=== PATIENT | female | born 1940 | race African-American/Black ===

== ENCOUNTER 2018-04-03 17:40 | Emergency (ER) | payer MEDICARE, OTHER ==
[~2018-04-03] VITALS: Ht 162.6 cm; Wt 72.6 kg
[~2018-04-03 17:40] MED LIST: METO-269 PO
[2018-04-03 19:00] LABS: BILIRUBIN,URINE NEGATIVE (NEG); CLARITY,URINE CLEAR; COLOR,URINE YELLOW; NITRITE,URINE NEGATIVE (NEG); PH,URINE 6.5; PROTEIN,URINE NEGATIVE (NEG-TRACE)
[2018-04-03 19:11] LABS: BACTERIA,URINE MODERATE /HPF (0-FEW); SQUAMOUS EPITHELIAL CELL,UR MOD /LPF; WBC,URINE 20-40 /HPF (0-4); YEAST,URINE PRESENT /HPF
[2018-04-03] MEDS ORDERED: FLUCONAZOLE 100 MG TABLET. PO ONE (19:45)
[2018-04-03] MEDS ORDERED: IPRATRPIUM/ALBUTEROL 0.5/2.5MG 3 ML NEBU. NEB ONE (19:45)
--- NOTE | 2018-04-03 19:51 | PHYS DOC ---
Past Medical History Past Medical History: Constipation, Hypertension, Seizure Past Surgical History: Appendectomy, Hysterectomy, Tonsillectomy Smoking: Cigarettes Alcohol Use: Occasionally Drug Use: Marijuana Adult General Chief Complaint Chief Complaint: ABDOMINAL PAIN HPI HPI Patient is a 77 year old female with past medical history of chronic constipation and hypertension who presents with 1 week of abdominal pain. Patient notes that she came to the emergency department today because the pain increased and is now severe. Patient notes that her pain is constant in nature and is unable to describe pain more specifically but notes that it is diffuse. She notes she has had Nausea, constipation, and decreased appetite. Patient denies vomiting or fevers/chills. She notes that she had a small amount of liquidy stool that she passed today, but previously her last bowel movement was one week ago. Patient notes that she has had a cough for about the last week with productive clear sputum, and shortness of breath. Review of Systems Review of Systems Constitutional: Denies fever or chills [] Eyes: Denies change in visual acuity, redness, or eye pain [] HENT: Denies nasal congestion or sore throat [] Respiratory: Notes cough and shortness of breath [] Cardiovascular: No additional information not addressed in HPI [] GI: Notes abdominal pain, nausea, Denies vomiting, bloody stools or diarrhea [] : Denies dysuria or hematuria [] Musculoskeletal: Denies back pain or joint pain [] Integument: Denies rash or skin lesions [] Neurologic: Denies headache, focal weakness or sensory changes [] Endocrine: Denies polyuria or polydipsia [] Complete other systems were reviewed and found to be within normal limits, except as documented in this note. Family History Family History Noncontributory Current Medications Current Medications Current Medications Medications (Trade) Dose Ordered Sig/Jeane Start Time Stop Time Status Last Admin Dose Admin Albuterol/ Ipratropium (Duoneb) 3 ml 1X ONCE 04/03/18 19:45 04/03/18 19:46 DC 04/03/18 20:06 3 ML Ceftriaxone Sodium 50 ml @ 100 mls/hr 1X ONCE 04/03/18 20:00 04/03/18 20:46 DC Famotidine (Pepcid Vial) 20 mg 1X ONCE 04/03/18 20:15 04/03/18 20:16 DC 9/14/18 20:35 20 MG Fluconazole (Diflucan) 200 mg 1X ONCE 04/03/18 19:45 04/03/18 19:46 DC 04/03/18 20:35 200 MG Ketorolac Tromethamine (Toradol 15mg Vial) 15 mg 1X ONCE 04/03/18 20:15 04/03/18 20:16 DC 04/03/18 20:34 15 MG Sodium Chloride 1,000 ml @ 1,000 mls/hr 1X ONCE 04/03/18 20:15 04/03/18 21:14 DC 04/03/18 20:34 1,000 MLS/HR Allergies Allergies Allergies Coded Allergies Type Severity Reaction Last Updated Verified lisinopril Allergy Severe throat closing 04/03/18 Yes Penicillins Allergy Intermediate Rash 04/03/18 Yes Physical Exam Physical Exam Constitutional: Well developed, well nourished, no acute distress, non-toxic appearance. [] HENT: Normocephalic, atraumatic, bilateral external ears normal, oropharynx moist, no oral exudates, nose normal. [] Eyes: PERRL, EOMI, conjunctiva normal, no discharge. [] Neck: Normal range of motion, no tenderness, supple, no stridor. [] Cardiovascular:Heart rate regular rhythm, no murmur [] Lungs & Thorax: Bilateral expiratory wheezes, and decreased air movement[] Abdomen: Bowel sounds normal, soft, nondistended, no guarding, diffuse tenderness. [] Skin: Warm, dry, no erythema, no rash. [] Back: No tenderness, no CVA tenderness. [] Extremities: Left knee tenderness, no cyanosis, no clubbing, ROM intact, no edema. [] Neurologic: Alert and oriented X 3, normal motor function, normal sensory function, no focal deficits noted. Normal muscle strength bilateral upper and lower extremities. Cranial nerves II through XII intact bilaterally. [] Psychologic: Affect normal, judgement normal, mood normal. [] Current Patient Data Vital Signs Vital Signs Date Time Temp Pulse Resp B/P (MAP) Pulse Ox O2 Delivery O2 Flow Rate FiO2 04/03/18 20:06 98 Room Air 04/03/18 18:30 98.3 87 22 157/78 (104) 98.3 Lab Values Laboratory Tests Test 04/03/18 18:30 04/03/18 19:45 Urine Collection Type Unknown Urine Color Yellow Urine Clarity Clear Urine pH 6.5 Urine Specific [place] 1.010 Urine Protein Negative mg/dL (NEG-TRACE) Urine Glucose (UA) Negative mg/dL (NEG) Urine Ketones (Stick) Trace mg/dL (NEG) Urine Blood Small (NEG) Urine Nitrite Negative (NEG) Urine Bilirubin Negative (NEG) Urine Urobilinogen Dipstick 1.0 mg/dL (0.2 mg/dL) Urine Leukocyte Esterase Large (NEG) Urine RBC 3-5 /HPF (0-2) Urine WBC 20-40 /HPF (0-4) Urine Squamous Epithelial Cells Mod /LPF Urine Bacteria Moderate /HPF (0-FEW) Urine Mucus Slight /LPF Urine Yeast Present /HPF White Blood Count 5.5 x10^3/uL (4.0-11.0) Red Blood Count 4.50 x10^6/uL (3.50-5.40) Hemoglobin 13.4 g/dL (12.0-15.5) Hematocrit 39.5 % (36.0-47.0) Mean Corpuscular Volume 88 fL (79-100) Mean Corpuscular Hemoglobin 30 pg (25-35) Mean Corpuscular Hemoglobin Concent 34 g/dL (31-37) Red Cell Distribution Width 13.6 % (11.5-14.5) Platelet Count 223 x10^3/uL (140-400) Neutrophils (%) (Auto) 73 % (31-73) Lymphocytes (%) (Auto) 15 % (24-48) L Monocytes (%) (Auto) 7 % (0-9) Eosinophils (%) (Auto) 4 % (0-3) H Basophils (%) (Auto) 1 % (0-3) Neutrophils # (Auto) 4.0 x10^3uL (1.8-7.7) Lymphocytes # (Auto) 0.8 x10^3/uL (1.0-4.8) L Monocytes # (Auto) 0.4 x10^3/uL (0.0-1.1) Eosinophils # (Auto) 0.2 x10^3/uL (0.0-0.7) Basophils # (Auto) 0.0 x10^3/uL (0.0-0.2) Prothrombin Time 13.2 SEC (11.7-14.0) Prothrombin Time INR 1.1 (0.8-1.1) PTT 37 SEC (24-38) Sodium Level 140 mmol/L (136-145) Potassium Level 4.1 mmol/L (3.5-5.1) Chloride Level 102 mmol/L (98-107) Carbon Dioxide Level 29 mmol/L (21-32) Anion Gap 9 (6-14) Blood Urea Nitrogen 5 mg/dL (7-20) L Creatinine 0.7 mg/dL (0.6-1.0) Estimated GFR (Cockcroft-Gault) 97.7 BUN/Creatinine Ratio 7 (6-20) Glucose Level 91 mg/dL (70-99) Calcium Level 9.6 mg/dL (8.5-10.1) Magnesium Level 2.2 mg/dL (1.8-2.4) Total Bilirubin 0.4 mg/dL (0.2-1.0) Aspartate Amino Transferase (AST) 16 U/L (15-37) Alanine Aminotransferase (ALT) 17 U/L (14-59) Alkaline Phosphatase 91 U/L (46-116) Troponin I Quantitative < 0.017 ng/mL (0.000-0.055) Total Protein 7.3 g/dL (6.4-8.2) Albumin 3.4 g/dL (3.4-5.0) Albumin/Globulin Ratio 0.9 (1.0-1.7) L Lipase 104 U/L (73-393) Laboratory Tests 04/03/18 19:45 Laboratory Tests 04/03/18 19:45 EKG EKG Sinus rhythm, rate 87, QRS 118, QTC 478. No acute ischemic changes noted.[] Radiology/Procedures Radiology/Procedures PROCEDURE: CT CHEST ABDOMEN PELVIS WO PQRS Compliance statement: One or more of the following individualized dose reduction techniques were utilized for this examination: 1. Automated exposure control. 2. Adjustment of the mA and/or kV according to patient size. 3. Use of iterative reconstruction technique. Indication:SEVERE RT SIDED ABD PAIN, WHEEZING, NO PRIORS TECHNIQUE: CT chest, abdomen and pelviswithout IV contrast with multiplanar reformats. COMPARISON: None FINDINGS: Limited exam due to lack of IV contrast. Enlarged thyroid with dystrophic calcifications most likely goiter. Heart is normal in size. No pericardial or pleural effusion. Coronary artery calcifications. Diffusely patulous esophagus is seen. No enlarged axillary or mediastinal lymph nodes. Evaluation of hilar lymphadenopathy is limited due to lack of IV contrast. Central airways are patent. Mild paraseptal emphysema. Lungs are clear. Noncontrast appearance of the liver, spleen, gallbladder, pancreas, adrenals and kidneys within normal limits. Moderate diffuse atherosclerotic disease is seen of the abdominal aorta and bilateral iliac arteries. No free pelvic fluid or ascites. No enlarged retroperitoneal or pelvic adenopathy. No bowel obstruction. Sigmoid diverticulosis. No pneumoperitoneum. Urinary bladder demonstrates no radiopaque stones. Status post hysterectomy. No suspicious bony lesion. IMPRESSION: Limited exam due to lack of contrast. 1. No pneumonia. 2. No bowel obstruction. 3. No nephrolithiasis or hydronephrosis. Electronically signed by: Shon Arteaga DO (04/03/2018 9:39 PM) [facility] Course & Med Decision Making Course & Med Decision Making Pertinent Labs and Imaging studies reviewed. (See chart for details) [] Dragon Disclaimer Dragon Disclaimer This electronic medical record was generated, in whole or in part, using a voice recognition dictation system. Departure Departure Impression: Primary Impression: Abdominal pain Additional Impressions: UTI (urinary tract infection) Yeast cystitis Disposition: 01 HOME, SELF-CARE Condition: STABLE Referrals: KANDICE FALCON DO (PCP) Patient Instructions: Abdominal Pain (Nonspecific), Urinary Tract Infection, Stll-od-Oqpi Scripts Fluconazole (DIFLUCAN) 150 Mg Tablet 1 TAB PO ONCE, #1 TAB 0 Refills Take after completion of antibiotics (Keflex) Prov: RALPH LOCK DO 04/03/18 Cephalexin (KEFLEX) 500 Mg Capsule 500 MG PO TID for 7 Days, #21 CAP Prov: RALPH LOCK DO 04/03/18 Famotidine (PEPCID) 20 Mg Tablet 20 MG PO BID, #30 TAB Prov: RALPH LOCK DO 04/03/18 Hyoscyamine Sulfate (LEVSIN-SL) 0.125 Mg Tab.subl 1-2 TAB SL PRN Q4HRS PRN for PAIN, #20 TAB 0 Refills Prov: RALPH LOCK DO 04/03/18 Problem Qualifiers Primary Impression: Abdominal pain Abdominal location: unspecified location Qualified Codes: R10.9 - Unspecified abdominal pain Additional Impressions: UTI (urinary tract infection) Urinary tract infection type: acute cystitis Hematuria presence: without hematuria Qualified Codes: N30.00 - Acute cystitis without hematuria RALPH LOCK DO Apr 03, 2018 19:51
[2018-04-03 20:00] LABS: BASO % 1 % (0-3); EOS # 0.2 x10^3/uL (0.0-0.7); EOS % 4 % (0-3); HEMATOCRIT 39.5 % (36.0-47.0); HEMOGLOBIN 13.4 g/dL (12.0-15.5); LYMPH # 0.8 x10^3/uL (1.0-4.8); LYMPH % 15 % (24-48); MEAN CORPUSCULAR HEMOGLOBIN 30 pg (25-35); MEAN CORPUSCULAR HGB CONC 34 g/dL (31-37); MEAN CORPUSCULAR VOLUME 88 fL (79-100); MONO # 0.4 x10^3/uL (0.0-1.1); MONO % 7 % (0-9); NEUT % 73 % (31-73); PLATELET COUNT 223 x10^3/uL (140-400); RED CELL DISTRIBUTION WIDTH 13.6 % (11.5-14.5); WHITE BLOOD COUNT 5.5 x10^3/uL (4.0-11.0)
--- NOTE | 2018-04-03 20:08 | EKG ---
[facility] [address] [place] [address] Test Date: 2018-04-03 Test Time: 19:26:27 Pat Name: ADILIA TORRES Department: Room: Gender: F [employer] Machine Operator: : [id number] Requested By: RALPH LOCK Order Number: [id number] Reading MD: Yasmani Vaca Measurements Intervals [place] Rate: 87 P: 90 IA: 136 QRS: 88 QRSD: 118 T: 70 QT: 392 QTc: 478 Interpretive Statements SINUS RHYTHM VENTRICULAR PREMATURE COMPLEX(ES) LEFT ATRIAL ABNORMALITY INCOMPLETE RIGHT BUNDLE BRANCH BLOCK PROLONGED QT ABNORMAL ECG Electronically Signed On 04-06-2018 11:10:11 CDT by Yasmani Vaca
[2018-04-03 20:09] LABS: CALCIUM 9.6 mg/dL (8.5-10.1); CREATININE 0.7 mg/dL (0.6-1.0); GFR 97.7; POTASSIUM 4.1 mmol/L (3.5-5.1)
[2018-04-03 20:12] LABS: PROTHROMBIN TIME PATIENT 13.2 SEC (11.7-14.0)
[2018-04-03 20:15] LABS: ALBUMIN 3.4 g/dL (3.4-5.0); ALBUMIN/GLOBULIN RATIO 0.9 (1.0-1.7); MAGNESIUM 2.2 mg/dL (1.8-2.4); TOTAL BILIRUBIN 0.4 mg/dL (0.2-1.0); TOTAL PROTEIN 7.3 g/dL (6.4-8.2)
[2018-04-03] MEDS ORDERED: KETOROLAC 15 MG/ML VIAL. IV ONE (20:15)
[2018-04-03] MEDS ORDERED: FAMOTIDINE 20 MG/2 ML VIAL IVP ONE (20:15)
[2018-04-03] MEDS ORDERED: IV NORMAL SALINE 1000ML BAG 1,000 ML IV ONE (20:15)
--- NOTE | 2018-04-03 21:42 | RAD ---
PQRS Compliance statement: One or more of the following individualized dose reduction techniques were utilized for this examination: 1. Automated exposure control. 2. Adjustment of the mA and/or kV according to patient size. 3. Use of iterative reconstruction technique. Indication:SEVERE RT SIDED ABD PAIN, WHEEZING, NO PRIORS TECHNIQUE: CT chest, abdomen and pelviswithout IV contrast with multiplanar reformats. COMPARISON: None FINDINGS: Limited exam due to lack of IV contrast. Enlarged thyroid with dystrophic calcifications most likely goiter. Heart is normal in size. No pericardial or pleural effusion. Coronary artery calcifications. Diffusely patulous esophagus is seen. No enlarged axillary or mediastinal lymph nodes. Evaluation of hilar lymphadenopathy is limited due to lack of IV contrast. Central airways are patent. Mild paraseptal emphysema. Lungs are clear. Noncontrast appearance of the liver, spleen, gallbladder, pancreas, adrenals and kidneys within normal limits. Moderate diffuse atherosclerotic disease is seen of the abdominal aorta and bilateral iliac arteries. No free pelvic fluid or ascites. No enlarged retroperitoneal or pelvic adenopathy. No bowel obstruction. Sigmoid diverticulosis. No pneumoperitoneum. Urinary bladder demonstrates no radiopaque stones. Status post hysterectomy. No suspicious bony lesion. IMPRESSION: Limited exam due to lack of contrast. 1. No pneumonia. 2. No bowel obstruction. 3. No nephrolithiasis or hydronephrosis. Electronically signed by: Shon Arteaga DO (04/03/2018 9:39 PM) [facility]
[2018-04-03] MEDS ORDERED: FLUC150T PO (22:28)
[2018-04-03] MEDS ORDERED: HYOS0.1265 SL (22:28)
[2018-04-03] MEDS ORDERED: CEPH-264 PO (22:28)
[2018-04-03] MEDS ORDERED: FAMO-63 PO (22:28)
[2018-04-03 23:00] VITALS: BP 148/63
== END 2018-04-03 23:18 | disposition home or self-care (01) ==
LOC: ER 17:40
DX: N30.00 Acute cystitis without hematuria (principal); B37.41 Candidal cystitis and urethritis; R06.02 Shortness of breath; I10 Essential (primary) hypertension; F17.210 Nicotine dependence, cigarettes, uncomplicated; Z90.89 Acquired absence of other organs; Z90.710 Acquired absence of both cervix and uterus; Z88.0 Allergy status to penicillin; Z88.8 Allergy status to other drugs, medicaments and biological substances
CPT/HCPCS: 36415; 71250; 74176; 80053; 81001; 83690; 83735; 84484; 85025; 85610; 85730; 87086; 93005; 94640; 96365; 96375; 99285; J0690; J1885; J7030; J7620; S0028

== ENCOUNTER 2018-05-07 13:57 | Inpatient (IN) | payer MEDICARE, OTHER ==
[~2018-05-07] VITALS: Ht 165.1 cm; Wt 69.9 kg
[~2018-05-07 13:57] MED LIST changes: +CEPH-264 PO; +FAMO-63 PO; +FLUC150T PO; +HYOS0.1265 SL
[2018-05-07] MEDS ORDERED: ALBUTEROL SULFATE 2.5 MG/3 ML NEBU. NEB PRN (15:45)
[2018-05-07 16:00] VITALS: BP 135/66
[2018-05-07] MEDS ORDERED: levOFLOXacin PER PHARMACY. MC PRN (16:00)
--- NOTE | 2018-05-07 16:26 | PDOC2 ---
GI CONSULT Reason For Consult: Abd pain, diarrhea HPI: HPI: 77 y/o female from [facility]. Much of history from daughter Nhung. Had a check-up w/ her PCP this morning, was told she could stop her BP meds, start ASA, start Metamucil for constipation, and try hyoscyamine for abd pain. Went to [employer], got on an electric cart, then had an episode of staring, eye rolling, lip-drooping, and fist-clenching. Brought to ER by EMS, daughter says was hypertensive. CT head unrevealing, brain MRI pending here. Chronic abdominal pain that has been worse lately, maybe for about a week. Pain is fairly constant - she cannot tell me aggravating or alleviating factors. She says it is diffuse but worse on the right side. Difficult to characterize except "it feels like I have to poop." H/o constipation - has been on Amitiza BID for awhile and recently added Mag Citrate twice weekly. Began having watery stools 2 days ago. Decreased appetite w/ possible nausea, but no vomiting and has gained weight. Denies hematochezia or melena. No reflux/heartburn or dysphagia. At [facility]: normal WBC and Hgb, normal LFTs and lipase. CT unrevealing for acute issue, noted diverticulosis. No previous EGD. Recalls colonoscopy at some point, thinks normal. No GB, liver, or pancreas history. No NSAIDs. Recently took atbx for UTI - says no dysuria but urine has a strong odor. Has also had a cough recently. No fever/ chills/sweats. PMH: PMH: HTN, mild valvular heart disease, ?seizure, UTI, diverticulosis, appendectomy, hysterectomy, tonsillectomy FH: Family History: No pertinent hx (denies GI cancers) Social History: Smoke: <1 pack per day ALCOHOL: rare Drugs: Marijuana (daily "if I can get it") ROS: GEN: Denies fevers, chills, sweats HEENT: Denies blurred vision, sore throat CV: Denies chest pain RESP: +cough GI: Per HPI : +malodorous urine ENDO: +weight gain NEURO: Denies confusion, dizziness MSK: Denies weakness, joint pain/swelling SKIN: Denies jaundice, pruritus Vitals: Vitals: Please see EMR. Labs: Labs: Per HPI, please see EMR. Allergies: Coded Allergies: lisinopril (Verified Allergy, Severe, throat closing, 04/03/18) Penicillins (Verified Allergy, Intermediate, Rash, 04/03/18) Medications: Please see EMR. Imaging: Imaging: Brain MRI pending PE: GEN: NAD - on commode HEENT: Atraumatic, PERRL LUNGS: coarse, wet cough HEART: RRR ABD: NABS, S/ND - difficult to assess tenderness on commode - perhaps vaguely uncomfortable to right EXTREMITY: No edema SKIN: No rashes, no jaundice NEURO/PSYCH: A & O 3 - slow to answer, daughter helps A/P: A/P: AMS Chronic abd pain - worse, mostly right-sided (today) Watery stools - h/o constipation on Amitiza and Mag Citrate, recent atbx use Decreased appetite, ?nausea Cough CRC screen - reports normal colonoscopy at some point Diverticulosis +THC -- Reviewed w/ Dr. Kirk - check abd US r/o gallbladder issue. Will also check fecal WBCs w/ recent atbx use. Has IV PPI ordered. VIVIAN MOREL May 07, 2018 16:26
[2018-05-07] MEDS ORDERED: GADOBUTROL 7.5 MMOL/7.5 ML VIAL IV ONE (16:30)
[2018-05-07] MEDS ORDERED: PANTOPRAZOLE IV PUSH 40 MG VIAL. IVP SCH (16:30)
[2018-05-07] MEDS: IPRATRPIUM/ALBUTEROL 0.5/2.5MG 3 ML NEBU. NEB SCH ×2 (16:50→19:22)
--- NOTE | 2018-05-07 17:11 | RAD ---
MRI Brain with and without contrast History: Syncope, possible seizure, weakness Technique: Multiplanar, multi sequential pre and postcontrast MR imaging was performed of the brain. Contrast: 6 cc Gadavist Comparison: July 18, 2016 Findings: There is a small about 5 to 6 mm focus of restricted diffusion along the margin of the right lateral ventricle. Ventricular size is within normal limits. There is moderate supratentorial atrophy greater of the parietal lobes. There is mild T2 and FLAIR hyperintense abnormality of the supratentorial white matter bilaterally not significantly changed. There is a small focus of encephalomalacia and gliosis with cortical involvement of the right occipital lobe, new since the previous 2016 exam. There are again foci of encephalomalacia and gliosis of the anterior frontal lobes bilaterally with cortical involvement, left greater than right. There is again small old lacunar infarct of the right frontal horn. There is minimal T2 and FLAIR hyperintense signal of the luis angel unchanged. There is no significant midline shift, intraaxial mass effect, or focal abnormal extra-axial fluid collection. There is no hemosiderin deposition of the brain parenchyma. There is no nodular parenchymal or leptomeningeal enhancement. There is preservation of the major intracranial flow-voids at the skull base. The cerebellar tonsils are normal in location. There is no significant abnormality of the pineal gland or pituitary gland. There has been lens surgery bilaterally. Paranasal sinuses are overall aerated. The mastoid air cells are aerated. There is preserved marrow signal of the clivus. Impression: 1. There is a small recent acute or subacute infarct along the margin of the right lateral ventricle. 2. There is moderate supratentorial atrophy greater of the parietal lobes. Overall mild T2 and FLAIR hyperintense signal abnormality of the supratentorial parenchyma is similar compared with 2016 exam, nonspecific findings probably due to chronic microvascular ischemic disease in a patient this age, also small old lacunar infarct near the right frontal horn. There is small old infarct with cortical involvement of the right occipital lobe, new since 2016 exam. Small foci of encephalomalacia with cortical involvement and gliosis of the anterior frontal lobes bilaterally greater on the left were present previously. Critical result: Findings discussed with patient's nurse Sade at 05/07/2018 5:07 PM. Electronically signed by: Kris Jean MD (05/07/2018 5:08 PM) [id number]
[2018-05-07] MEDS: oxyCODONE/APAP 5/325 1 TAB TABLET PO PRN ×2 (17:24→20:39)
[2018-05-07] MEDS ORDERED: LUBI8CAP4 PO (18:43)
[2018-05-07] MEDS ORDERED: OLOP5DRO EACHEYE (18:44)
[2018-05-07] MEDS ORDERED: FURO-69 PO (18:44)
[2018-05-07] MEDS ORDERED: POTA10TA12 PO (18:44)
[2018-05-07] MEDS ORDERED: PANT20TA2 PO (18:45)
[2018-05-07] MEDS ORDERED: AMLO5TAB7 PO (18:45)
[2018-05-07 19:00] VITALS: BP 131/58
[2018-05-07] MEDS: amLODIPine BESYLATE 2.5 MG TABLET PO ONE (19:00)
[2018-05-07] MEDS: FUROSEMIDE 20 MG TABLET PO SCH ×2 (19:00→20:37)
[2018-05-07] MEDS: amLODIPine BESYLATE 2.5 MG TABLET PO SCH (19:00)
--- NOTE | 2018-05-07 20:19 | PDOC2 ---
NEUROLOGY CONSULT Date of Admission Date of Admission DATE: 05/07/18 TIME: 19:59 Reason for Consult Reason for Consult: IMPRESSION: Seizures, believed provoked by cannabinoids. Small subacute infarct along the right ventricle. Metabolic encephalopathy. Confusion. UTI. HTN. Old small lacunar infarcts near right frontal horn and right occipital lobe. 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 Brain atrophy, cannabinoids induced and CVA. Cannabinoid use/abuse x 50 years. Smoking x 50 years. Drinking. Benzo positive. RECOMMENDATIONS/PLAN: ASA 325 mg daily,. Brain MRI performed. Carotid A US + Doppler. Echo + Bubble study. EEG. May consider Keppra 500 mg bid after EEG. Lab: see orders. Treat UTI. Treat medical diseases. Patient education for marijuana and smoking cessation. Discussed in all detail with her and her daughter at bedside on 05/07/18. HISTORY OF THE PRESENT ILLNESS: 77-y-old AA female patient with Hx of marijuana use/abuse and smoking for about 50 years. She had a seizure on 05/07/18 described by her daughter as LOC, eyes rolling back to her head, foam from her mouth, stiffness with shaking movements in her UE mostly for several minutes. Postictally, she was confused and unable to recognize her surroundings. She had 4 similar episodes in the past 1.5 years per her daughter. PMH: HTN, mild valvular heart disease, ?seizure, UTI, diverticulosis. PAST SURGERY HISTORY: Tonsillectomy Appendectomy, Hysterectomy ALLERGY: Reviewed. MEDICATIONS: Refer to [facility] FAMILY HISTORY: Non contributory. No seizures. SOCIAL HISTORY: Lives at home. he smokes < 1 pack of cigarettes a day for 50 years. She drinks alcohol occasionally. She uses marijuana on a daily basis for 50 years.. REVIEW OF SYSTEMS: Constitutional: No cachexia. Head: No recent traumatic brain or head injury. Skin: No edema, or rash. Ear: No infection. Eyes: No vision loss or color blindness. Nose: No bleeding or purulent discharges. Hearing: Mild hearing decrease. Neck: No injury. Breast: No history of cancer, masses,or discharges. Cardiac: HTN. Pulmonary: COPD? longstanding smoking. GI: Diverticulosis. Urinary/genital: UTI. Endocrinologic: No cousin face, craniofacial dysmorphism, polydactyly. Skeletomuscular: No muscular atrophy, deformity. Neurological: see HP. Psychiatric: Substance and drug use/abuse. Otherwise, not [id number] review of systems. PHYSICAL EXAMINATION: General appearance is in acute distress. HEENT: Normocephalic and nontraumatic. Eyes, nose, ears, and throat are unremarkable. Neck is supple. No lymphadenopathy. No crepitus. Cardiovascular: S1, S2, regular rate and rhythm. Pulmonary: Clear to auscultation bilaterally. Abdomen: Bowel sounds are positive. Extremities: No rash, lesions, or edema. No restriction of range of motion NEUROLOGICAL EXAMINATION: Awake. Not fully oriented to time, but knew place and person. PERRL. EOMI. CN: no focal findings. Muscle tone: within normal. Muscle strength: 4+ DTR: 1-2 Plantar reflex: Neutral response bilaterally Gait: not examined in bed. Sensory exam: no abnormal findings. No acute cerebellar signs elicited. Current Medications Current Medications Current Medications Pantoprazole Sodium (PROTONIX VIAL for IV PUSH) 40 mg DAILYAC IVP ; Start 05/07 at 16:30; Stop 05/07/18 at 18:45; Status DC Albuterol Sulfate (Ventolin Neb Soln) 2.5 mg PRN Q4HRS PRN NEB SHORTNESS OF BREATH; Start 05/07/18 at 15:45 Albuterol/ Ipratropium (Duoneb) 3 ml RTQID NEB Last administered on 05/07/18at 19:22; Start 05/07/18 at 16:00 Levofloxacin/ Dextrose (Levaquin Per Pharmacy) 1 each PRN DAILY PRN MC SEE COMMENTS; Start 05/07/18 at 16:00 Levofloxacin/ Dextrose 50 ml @ 50 mls/hr Q24H IV Last administered on at 17:23; Start 05/07/18 at 17:00 Gadobutrol (Gadavist) 6 mmol 1X ONCE IV Last administered on 05/07/18at 16:43 ; Start 05/07/18 at 16:30; Stop 05/07/18 at 16:34; Status DC Oxycodone/ Acetaminophen (Percocet 5/325) 2 tab PRN Q6HRS PRN PO PAIN MOD TO SEV; Start 05/07/18 at 17:15 Oxycodone/ Acetaminophen (Percocet 5/325) 1 tab PRN Q4HRS PRN PO PAIN MILD Last administered on 05/07/18at 17:24; Start 05/07/18 at 17:15 Aspirin (Jovany Aspirin) 325 mg DAILYWBKFT PO ; Start 05/07/18 at 18:30 Famotidine (Pepcid) 20 mg BID PO ; Start 05/07/18 at 21:00 Furosemide (Lasix) 20 mg DAILY PO ; Start 05/07/18 at 19:00 Potassium Chloride (Klor-Con) 10 meq DAILY PO ; Start 05/07/18 at 19:00 Ketotifen Fumarate (Zaditor) 1 drop BID OU ; Start 05/07/18 at 21:00 Pantoprazole Sodium (Protonix) 40 mg DAILYAC PO ; Start 05/07/18 at 19:00 Amlodipine Besylate (Norvasc) 2.5 mg DAILY PO ; Start 05/07/18 at 19:00 Amlodipine Besylate (Norvasc) 2.5 mg 1X ONCE PO ; Start 05/07/18 at 19:00; Stop 05/07/18 at 19:01; Status DC Active Scripts Active Pepcid (Famotidine) 20 Mg Tablet 20 Mg PO BID Levsin-Sl (Hyoscyamine Sulfate) 0.125 Mg Tab.subl 1-2 Tab SL PRN Q4HRS PRN Reported Protonix (Pantoprazole Sodium) 20 Mg Tablet.dr 2 Tab PO DAILY Amlodipine Besylate 5 Mg Tablet 5 Mg PO DAILY Patanol (Olopatadine Hcl) 5 Ml Drops 1 Drop EACHEYE BID Lasix (Furosemide) 20 Mg Tablet 1 Tab PO DAILY Klor-Con 10 (Potassium Chloride) 10 Meq Tablet.er 1 Tab PO DAILY Amitiza (Lubiprostone) 8 Mcg Capsule 1 Cap PO BID Toprol Xl (Metoprolol Succinate) 50 Mg Tab.er.24h 1 Tab PO DAILY Allergies Allergies: Allergies Coded Allergies Type Severity Reaction Last Updated Verified lisinopril Allergy Severe throat closing 04/03/18 Yes Penicillins Allergy Intermediate Rash 04/03/18 Yes ROS Review of System The patient denies any associated fevers, chills, headache, ear pain, rhinorrhea , sore throat, stiff neck, productive cough, chest pain, shortness of breath, back or flank pain, abdominal pain, nausea, vomiting, diarrhea, constipation, dysuria, rash, numbness, weakness, tingling, incontinence, difficulty ambulating, or diaphoresis. Physical Exam Physical Exam General: Well developed, well nourished, no acute distress, well appearing HEENT: Pupils equally round and reactive to light, EOMI, no discharge, normal conjunctiva Neck: Supple, no nuchal rigidity, no JVD, trachea midline, no tenderness Cardiac: RRR, no murmurs, no gallops, no rubs Chest/Lungs: CTAB, no wheeze, no rhonchi, no crackles Abdomen: soft, non-distended, no guarding, no peritoneal signs, non-tender Back: No tenderness Extremities: no edema, pulses intact, non-tender,capillary refill <3 sec bilateral upper and lower extremities, Neuro: Alert and oriented x 4, no focal deficits, normal speech Vitals Vitals: Vital Signs Date Time Temp Pulse Resp B/P (MAP) Pulse Ox O2 Delivery O2 Flow Rate FiO2 05/07/18 19:22 92 Room Air 05/07/18 18:29 2.0 05/07/18 16:00 98.2 90 24 135/66 (89) 98.2 JUAN PABLO BARRIOS MD May 07, 2018 20:19
[2018-05-07] MEDS: ASPIRIN 325 MG TABLET PO SCH (20:34)
[2018-05-07] MEDS: PANTOPRAZOLE 40 MG TABLET.DR. PO SCH (20:34)
[2018-05-07] MEDS: FAMOTIDINE 20 MG TABLET. PO SCH (20:35)
[2018-05-07] MEDS: POTASSIUM CHLORIDE 10 MEQ TABLET.ER. PO SCH (20:39)
[2018-05-07] MEDS: KETOTIFEN FUMARATE 0.025% OPHTH SOLUTION BOTTLE. OU SCH (20:39)
--- NOTE | 2018-05-07 21:01 | PDOC1 ---
History and Physical Date of Admission Date of Admission DATE: 05/07/18 TIME: 21:00 Identification/Chief Complaint Chief Complaint seizure, diarrhea Source Source: Caregiver, Chart review, Patient History of Present Illness History of Present Illness Ms. Cates is a 77 y/o female transferred here from [facility] ER Had a seizure at the grocery store and EMS called, per ER there, patient had prev. been instructed to get MRI of her brain and had not been completed. She uses THC for chronic pain, tobacco use > 50 years she also complained of abd pain with diarrhea for 2 days. right sided pain and feels constipated, pain 6/10 Past Medical History Cardiovascular: HTN CENTRAL NERVOUS SYSTEM: Seizure GI: GERD Renal/: UTI Endocrine: No pertinent hx Past Surgical History Past Surgical History: Appendectomy, Hysterectomy Family History Family History: Alzheimer's Disease, No Significant Family History: Parent Social History Smoke: <1 pack per day ALCOHOL: rare Drugs: Marijuana (daily "if I can get it") Current Medications Current Medications Current Medications Pantoprazole Sodium (PROTONIX VIAL for IV PUSH) 40 mg DAILYAC IVP ; Start 05/07 at 16:30; Stop 05/07/18 at 18:45; Status DC Albuterol Sulfate (Ventolin Neb Soln) 2.5 mg PRN Q4HRS PRN NEB SHORTNESS OF BREATH; Start 05/07/18 at 15:45 Albuterol/ Ipratropium (Duoneb) 3 ml RTQID NEB Last administered on 05/07/18at 19:22; Start 05/07/18 at 16:00 Levofloxacin/ Dextrose (Levaquin Per Pharmacy) 1 each PRN DAILY PRN MC SEE COMMENTS; Start 05/07/18 at 16:00 Levofloxacin/ Dextrose 50 ml @ 50 mls/hr Q24H IV Last administered on at 17:23; Start 05/07/18 at 17:00 Gadobutrol (Gadavist) 6 mmol 1X ONCE IV Last administered on 05/07/18at 16:43 ; Start 05/07/18 at 16:30; Stop 05/07/18 at 16:34; Status DC Oxycodone/ Acetaminophen (Percocet 5/325) 2 tab PRN Q6HRS PRN PO PAIN MOD TO SEV; Start 05/07/18 at 17:15 Oxycodone/ Acetaminophen (Percocet 5/325) 1 tab PRN Q4HRS PRN PO PAIN MILD Last administered on 05/07/18at 20:39; Start 05/07/18 at 17:15 Aspirin (Jovany Aspirin) 325 mg DAILYWBKFT PO Last administered on 05/07/18at 20 :34; Start 05/07/18 at 18:30 Famotidine (Pepcid) 20 mg BID PO Last administered on 05/07/18at 20:35; Start 05/07/18 at 21:00 Furosemide (Lasix) 20 mg DAILY PO ; Start 05/07/18 at 19:00 Potassium Chloride (Klor-Con) 10 meq DAILY PO Last administered on 05/07/18 20:39; Start 05/07/18 at 19:00 Ketotifen Fumarate (Zaditor) 1 drop BID OU Last administered on 05/07/18 20: 39; Start 05/07/18 at 21:00 Pantoprazole Sodium (Protonix) 40 mg DAILYAC PO Last administered on 20:34; Start 05/07/18 at 19:00 Amlodipine Besylate (Norvasc) 2.5 mg DAILY PO ; Start 05/07/18 at 19:00 Amlodipine Besylate (Norvasc) 2.5 mg 1X ONCE PO ; Start 05/07/18 at 19:00; Stop 05/07/18 at 19:01; Status DC Active Scripts Active Pepcid (Famotidine) 20 Mg Tablet 20 Mg PO BID Levsin-Sl (Hyoscyamine Sulfate) 0.125 Mg Tab.subl 1-2 Tab SL PRN Q4HRS PRN Reported Protonix (Pantoprazole Sodium) 20 Mg Tablet.dr 2 Tab PO DAILY Amlodipine Besylate 5 Mg Tablet 5 Mg PO DAILY Patanol (Olopatadine Hcl) 5 Ml Drops 1 Drop EACHEYE BID Lasix (Furosemide) 20 Mg Tablet 1 Tab PO DAILY Klor-Con 10 (Potassium Chloride) 10 Meq Tablet.er 1 Tab PO DAILY Amitiza (Lubiprostone) 8 Mcg Capsule 1 Cap PO BID Toprol Xl (Metoprolol Succinate) 50 Mg Tab.er.24h 1 Tab PO DAILY Allergies Allergies: Coded Allergies: lisinopril (Verified Allergy, Severe, throat closing, 04/03/18) Penicillins (Verified Allergy, Intermediate, Rash, 04/03/18) ROS General: YES: Chills, Fatigue, Malaise PSYCHOLOGICAL ROS: YES: Anxiety, Irritablity, Sleep disturbances; No: Behavioral Disorder, Concentration difficultie, Decreased libido, Depression, Disorientation, Hallucinations, Hostility, Memory difficulties, Mood Swings, Obsessive thoughts, Physical abuse, Sexual abuse, Suicidal ideation , Other Eyes: No Blurry vision, No Decreased vision, No Double vision, No Dry eyes, No Excessive tearing, No Eye Pain, No Itchy Eyes, No Loss of vision, No Photophobia , No Scotomata, No Uses contacts, No Uses glasses, No Other HEENT: YES: Heacaches; No: Visual Changes, Hearing change, Nasal congestion, Nasal discharge, Oral lesions, Sinus pain, Sore Throat, Epistaxis, Sneezing, Snoring, Tinnitus, Vertigo, Vocal changes, Other Respiratory: YES: Cough; No: Hemoptysis, Orthopnea, Pleuritic Pain, Shortness of breath, SOB with excertion, Sputum Changes, Stridor, Tachypnea, Wheezing, Other Cardiovascular: No Chest Pain, No Palpitations, No Orthopnea, No Paroxysmal Noc. Dyspnea, No Edema, No Lt Headedness, No Other Gastrointestinal: Yes Nausea, Yes Abdominal Pain, Yes Diarrhea Genitourinary: No Dysuria, No Frequency, No Incontinence, No Hematuria, No Retention, No Discharge, No Urgency, No Pain, No Flank Pain, No Other, No , No , No , No , No , No , No Musculoskeletal: Yes Joint Pain, Yes Joint Stiffness Neurological: No Behavorial Changes, No Bowel/Bladder ControlChng, No Confusion , No Dizziness, No Gait Disturbance, No Headaches, No Impaired Coord/balance, No Memory Loss, No Numbness/Tingling, No Seizures, No Speech Problems, No Tremors, No Visual Changes, No Weakness, No Other Skin: Yes Dry Skin Physical Exam General: Alert, Oriented X3, Cooperative, No acute distress HEENT: PERRLA, EOMI Lungs: Clear to auscultation, Normal air movement Heart: S1S2, RRR, no gallops, no murmurs Abdomen: Normal bowel sounds, Soft Rectal Exam: not examined Extremities: No edema, Normal pulses Skin: No rashes Neuro: Normal speech, Normal tone, Cranial nerves 3-12 NL Psych/Mental Status: Mood NL Vitals Vitals Vital Signs Date Time Temp Pulse Resp B/P (MAP) Pulse Ox O2 Delivery O2 Flow Rate FiO2 05/07/18 20:39 16 Room Air 05/07/18 20:13 2.0 05/07/18 19:22 92 05/07/18 19:00 99.3 88 131/58 (82) 99.3 VTE Prophylaxis Ordered VTE Prophylaxis Devices: No VTE Pharmacological Prophylaxi: No Assessment/Plan Assessment/Plan Seizures, witness, with CVA on MRI, will check carotid, echo, lipids CVA syndrome, 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 acute abdominal pain with diarrhea, GI consulted UTI. HTN. anxiety disorder, chronic pain MARIBEL ESPINOZA MD May 07, 2018 21:01
[2018-05-07] MEDS: ZOLPIDEM 5 MG TABLET. PO PRN (21:37)
[2018-05-07 23:00] VITALS: BP 119/59
[2018-05-08 03:00] VITALS: BP 156/63
[2018-05-08 04:34] LABS: BASO % 1 % (0-3); EOS # 0.1 x10^3/uL (0.0-0.7); EOS % 3 % (0-3); HEMATOCRIT 37.6 % (36.0-47.0); HEMOGLOBIN 13.1 g/dL (12.0-15.5); LYMPH # 0.8 x10^3/uL (1.0-4.8); LYMPH % 14 % (24-48); MEAN CORPUSCULAR HEMOGLOBIN 31 pg (25-35); MEAN CORPUSCULAR HGB CONC 35 g/dL (31-37); MEAN CORPUSCULAR VOLUME 88 fL (79-100); MONO # 0.5 x10^3/uL (0.0-1.1); MONO % 9 % (0-9); NEUT # 3.9 x10^3uL (1.8-7.7); NEUT % 73 % (31-73); PLATELET COUNT 247 x10^3/uL (140-400); RED BLOOD COUNT 4.29 x10^6/uL (3.50-5.40); RED CELL DISTRIBUTION WIDTH 13.8 % (11.5-14.5); WHITE BLOOD COUNT 5.4 x10^3/uL (4.0-11.0)
--- NOTE | 2018-05-08 04:52 | RAD ---
CLINICAL HISTORY: RIGHT SIDED ABD PAIN EVAL GB COMPARISON: None available. TECHNIQUE: Limited ultrasound examination of the right upper quadrant of the abdomen was performed FINDINGS: Liver: The liver measures 13.2 cm in length in the right mid clavicular line. Hepatic echogenicity is normal and the margin is smooth. There is no focal abnormality of the liver. Portal and hepatic venous flow is confirmed with normal waveforms. Visualized pancreas is unremarkable. Gallbladder/Biliary: The gallbladder is normal in appearance without evidence for cholelithiasis. There is no wall thickening or pericholecystic fluid. There is no pain with direct transducer pressure over the gallbladder.The common bile duct measures 0.5 cm. The right kidney measures 9.8 cm in bipolar length. No focal renal lesion. No hydronephrosis. No right renal calculi. There is no free fluid in the subhepatic space. IMPRESSION: 1. No evidence of acute cholecystitis. 2. No definite gallstones are seen. Electronically signed by: Sylvain Bosch MD (05/08/2018 4:49 AM) [id number]
[2018-05-08 04:55] LABS: ALBUMIN/GLOBULIN RATIO 0.7 (1.0-1.7); CALCIUM 9.1 mg/dL (8.5-10.1); CREATININE 0.9 mg/dL (0.6-1.0); GFR 73.1; TOTAL BILIRUBIN 0.4 mg/dL (0.2-1.0); TOTAL PROTEIN 7.3 g/dL (6.4-8.2)
[2018-05-08] MEDS: oxyCODONE/APAP 5/325 1 TAB TABLET PO PRN ×3 (05:39→17:41)
[2018-05-08 05:56] LABS: CHOLESTEROL/HDL RATIO 3.1
[2018-05-08] MEDS: IPRATRPIUM/ALBUTEROL 0.5/2.5MG 3 ML NEBU. NEB SCH ×4 (06:43→19:56)
[2018-05-08 07:00] VITALS: BP 153/79
--- NOTE | 2018-05-08 07:53 | RAD ---
Portable chest, 05/07/2018: HISTORY: Syncope, hypertension Comparison is made to a study from 07/17/2016. The heart size is normal. Coronary artery calcifications are noted. There is moderate calcific plaquing of the thoracic aorta. The pulmonary vascularity is normal. No pulmonary infiltrate is seen. There is no evidence of pleural fluid. Moderate spurring is present in the spine. IMPRESSION: 1. Calcific plaquing of the aorta and coronary arteries. 2. No acute abnormality is detected. Electronically signed by: Amor Stanley MD (05/08/2018 7:50 AM) [facility]
--- NOTE | 2018-05-08 08:07 | RAD ---
Carotid ultrasound, 05/07/2018: HISTORY: CVA Duplex evaluation of the carotid arteries and neck was performed including grayscale, color-flow and spectral Doppler analysis. There is mild to moderate atherosclerotic plaquing at the carotid bifurcations, worse on the left. Decreased velocity in the left common carotid artery compared to the right is likely on a technical basis. Color imaging in that region showed no significant stenosis. No parvus/tardus phenomena is evident. The proximal right internal carotid artery is tortuous. The peak systolic velocity in the right internal carotid artery is 73 cm/s with an end-diastolic velocity of 15 cm/s. These Doppler findings suggest narrowing in the 0-50 percent diameter range. On the left, the peak systolic velocity in the internal carotid artery is 92 cm per sec with an end-diastolic velocity of 28 cm/s. There is no Doppler evidence of high-grade stenosis. Antegrade flow is present in both vertebral arteries in the neck. IMPRESSION: Mild to moderate atherosclerotic plaquing at both carotid bifurcations, left greater than right, with no duplex evidence of high-grade stenosis. Note: Stenosis calculations for CT, MRA and conventional angiography are based upon determination of the distal ICA diameter in accordance with the NASCET methodology. Stenosis calculations for Doppler studies are derived from validated velocity criteria which are known to correlate with NASCET methodology of determining stenosis. Electronically signed by: Amor Stanley MD (05/08/2018 8:04 AM) [facility]
[2018-05-08 08:12] LABS: BILIRUBIN,URINE NEGATIVE (NEG); CLARITY,URINE CLEAR; COLOR,URINE YELLOW; NITRITE,URINE NEGATIVE (NEG); PH,URINE 5.5; PROTEIN,URINE NEGATIVE (NEG-TRACE); UROBILINOGEN,URINE 0.2 mg/dL (0.2 mg/dL)
[2018-05-08 08:24] LABS: BACTERIA,URINE 0 /HPF (0-FEW); SQUAMOUS EPITHELIAL CELL,UR FEW /LPF
[2018-05-08] MEDS: PANTOPRAZOLE 40 MG TABLET.DR. PO SCH (08:28)
[2018-05-08 08:29] LABS: BARBITURATES NEG (NEG); BENZODIAZEPINES NEG (NEG); CANNABINOIDS POS (NEG); COCAINE NEG (NEG); METHADONE NEG (NEG); OPIATES POS (NEG); PHENCYCLIDINE NEG (NEG)
[2018-05-08] MEDS: amLODIPine BESYLATE 2.5 MG TABLET PO SCH (08:29)
[2018-05-08] MEDS: POTASSIUM CHLORIDE 10 MEQ TABLET.ER. PO SCH (08:29)
[2018-05-08] MEDS: FUROSEMIDE 20 MG TABLET PO SCH (08:29)
[2018-05-08] MEDS: FAMOTIDINE 20 MG TABLET. PO SCH (08:29)
[2018-05-08] MEDS: ASPIRIN 325 MG TABLET PO SCH (08:30)
[2018-05-08] MEDS: KETOTIFEN FUMARATE 0.025% OPHTH SOLUTION BOTTLE. OU SCH ×2 (08:32→21:20)
[2018-05-08 08:33] LABS: AMPHETAMINE/METHAMPHETAMINE NEG (NEG)
[2018-05-08] MEDS ORDERED: POLYETHYLENE GLYCOL 3350 17 GM PACKET. PO PRN (10:30)
[2018-05-08] MEDS: DOCUSATE SODIUM 100 MG CAPSULE. PO SCH (10:39)
[2018-05-08] MEDS: SENNOSIDES/DOCUSATE 8.6/50MG TABLET. PO PRN (10:39)
[2018-05-08] MEDS: MORPHINE SULFATE 4 MG/ML VIAL. IV PRN (10:40)
--- NOTE | 2018-05-08 10:41 | CARD ---
MR#: [id number] Date of Study: 05/08/2018 Ordering Physician: JUAN PABLO BARRIOS, Referring Physician: MARIBEL ESPINOZA Tech: Rita Cortez APPROVED REPORT EXAM: Two-dimensional and M-mode echocardiogram with Doppler and color Doppler. Other Information Quality : AverageHR: 90bpm Technically limited study due to patient cough, body habitus. INDICATION CVD RISK FACTORS Hypertension Smoking 2D DIMENSIONS RVDd2.4 (2.9-3.5cm)Left Atrium(2D)2.7 (1.6-4.0cm) IVSd0.7 (0.7-1.1cm)Aortic Root(2D)3.3 (2.0-3.7cm) LVDd5.0 (3.9-5.9cm)LVOT Diameter1.8 (1.8-2.4cm) PWd0.8 (0.7-1.1cm)LVDs3.2 (2.5-4.0cm) FS (%) 35.3 %SV74.5 ml LVEF(%)64.4 (>50%) Aortic Valve AoV Peak Blake.192.5cm/sAoV VTI31.7cm AO Peak GR.14.8mmHgLVOT Peak Blake.136.4cm/s LVOT VTI 24.63cmAO Mean GR.8mmHg HARRY (VMAX)1.05zq9WTH (VTI)2.06cm2 AI P 1/2 Nlnh364rb Mitral Valve MV E Qlxfqjea586.0cm/sMV DECEL PUAC550tn MV A Comlshjw472.9cm/sMV QIV16uk E/A Ratio0.6MVA (PHT)3.27cm2 TDI E/Lateral E'21.4E/Medial E'22.5 Pulmonary Valve PV Peak Oyztctnv889.1cm/sPV Peak Grad.4mmHg Tricuspid Valve TR P. Agazloej268lb/sTR Peak Gr.33mmHg Pulmonary Vein S1 Emtjeamc82.7cm/sD2 Uebeliwh63.1cm/s LEFT VENTRICLE The left ventricle is normal size. There is normal left ventricular wall thickness. The left ventricu lar systolic function i mildly diminished. EF 45% The mid to distal septum is severely hypokinetic. D istal 1/3 of LV is mildly hypokinetic. Transmitral Doppler flow pattern is Grade I-abnormal relaxatio n pattern. RIGHT VENTRICLE The right ventricle is normal size. There is normal right ventricular wall thickness. The right ventr icular systolic function is normal. ATRIA The left atrium is mildly dilated. The right atrium size is normal. The interatrial septum is intact with no evidence for an atrial septal defect or patent foramen ovale as noted on 2-D or Doppler imagi ng. AORTIC VALVE The aortic valve is calcified and not well visualized. Doppler and Color Flow revealed mild to modera te aortic regurgitation. Calculated aortic valve area is 2 cm2 with maximum pressure gradient of 15 m mHg and mean pressure gradient of 8 mmHg. MITRAL VALVE Mitral annular calcification is mild. The posterior mitral valve leaflet appears thickened. Suspect r heumatic mitral valve appearance. Doppler and Color-flow revealed trace mitral regurgitation. TRICUSPID VALVE The tricuspid valve is not well visualized. Doppler and Color Flow revealed trace tricuspid regurgita tion. There is no tricuspid valve stenosis. PULMONIC VALVE The pulmonic valve is not well visualized. Doppler and Color Flow revealed trace pulmonic valvular re gurgitation. There is no pulmonic valvular stenosis. GREAT VESSELS The aortic root is normal in size. The IVC is normal in size and collapses >50% with inspiration. PERICARDIAL EFFUSION There is no evidence of significant pericardial effusion. Critical Notification Critical Value: No <Conclusion> The mid to distal septum is severely hypokinetic. Distal 1/3 of LV is mildly hypokinetic. Doppler and Color Flow revealed mild to moderate aortic regurgitation. Mitral annular calcification is mild. The posterior mitral valve leaflet appears thickened. Suspect r heumatic mitral valve appearance. Technically difficult study. Consider BRIEN if clinically indicated. No interatrial shunt by agitated saline contrast. The left ventricular systolic function i mildly diminished. EF 45% Signed by : Jeremiah Rice, Electronically Approved : 05/08/2018 10:40:14
[2018-05-08 11:00] VITALS: BP 123/59
--- NOTE | 2018-05-08 12:41 | PDOC ---
PROGRESS NOTES Chief Complaint Chief Complaint Seizures CVA syndrome THC and tobacco use, Metabolic encephalopathy acute abdominal pain with diarrhea UTI HTN. anxiety disorder chronic pain History of Present Illness History of Present Illness Ms. Cates is a 77 y/o female transferred here from [facility] ER Had a seizure at the grocery store and EMS called, per ER there, patient had prev. been instructed to get MRI of her brain and had not been completed. She uses THC for chronic pain, tobacco use > 50 years she also complained of abd pain with diarrhea for 2 days. right sided pain and feels constipated now, pain 12/28 Imaging reviewed, new CVA, RUQ US non-revealing. Still c/o abdominal pain and feeling of constipation. 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 - neuro consult, carotid doppler bilateral disease THC and tobacco use - counseled Metabolic encephalopathy - possibly 2/2 CVA or UTI acute abdominal pain with diarrhea - GI consulted UTI - on levaquin HTN - goal SBP < 150mmHg Anxiety disorder - managed Chronic pain Diet - General PPX - Heparin FULL CODE Inpatient for at least 2 midnights for CVA recovery, PT/OT/[employer] Vitals Vitals Vital Signs Date Time Temp Pulse Resp B/P (MAP) Pulse Ox O2 Delivery O2 Flow Rate FiO2 05/08/18 11:22 Room Air 05/08/18 11:00 98.3 87 18 123/59 (80) 96 98.3 05/08/18 09:41 2.0 Physical Exam General: Alert, Oriented X3, Cooperative, No acute distress Heart: Normal S1, Normal S2, No murmurs Lungs: Wheezing, Crackles Abdomen: Normal bowel sounds, Soft, Other (Diffuse tenderness) Extremities: No edema, Normal pulses Skin: No rashes Labs LABS Laboratory Tests Test 05/08/18 03:20 05/08/18 07:30 White Blood Count 5.4 x10^3/uL (4.0-11.0) Red Blood Count 4.29 x10^6/uL (3.50-5.40) Hemoglobin 13.1 g/dL (12.0-15.5) Hematocrit 37.6 % (36.0-47.0) Mean Corpuscular Volume 88 fL (79-100) Mean Corpuscular Hemoglobin 31 pg (25-35) Mean Corpuscular Hemoglobin Concent 35 g/dL (31-37) Red Cell Distribution Width 13.8 % (11.5-14.5) Platelet Count 247 x10^3/uL (140-400) Neutrophils (%) (Auto) 73 % (31-73) Lymphocytes (%) (Auto) 14 % (24-48) Monocytes (%) (Auto) 9 % (0-9) Eosinophils (%) (Auto) 3 % (0-3) Basophils (%) (Auto) 1 % (0-3) Neutrophils # (Auto) 3.9 x10^3uL (1.8-7.7) Lymphocytes # (Auto) 0.8 x10^3/uL (1.0-4.8) Monocytes # (Auto) 0.5 x10^3/uL (0.0-1.1) Eosinophils # (Auto) 0.1 x10^3/uL (0.0-0.7) Basophils # (Auto) 0.0 x10^3/uL (0.0-0.2) Sodium Level 141 mmol/L (136-145) Potassium Level 4.0 mmol/L (3.5-5.1) Chloride Level 102 mmol/L (98-107) Carbon Dioxide Level 29 mmol/L (21-32) Anion Gap 10 (6-14) Blood Urea Nitrogen 8 mg/dL (7-20) Creatinine 0.9 mg/dL (0.6-1.0) Estimated GFR (Cockcroft-Gault) 73.1 BUN/Creatinine Ratio 9 (6-20) Glucose Level 94 mg/dL (70-99) Calcium Level 9.1 mg/dL (8.5-10.1) Total Bilirubin 0.4 mg/dL (0.2-1.0) Aspartate Amino Transf (AST/SGOT) 14 U/L (15-37) Alanine Aminotransferase (ALT/SGPT) 12 U/L (14-59) Alkaline Phosphatase 91 U/L (46-116) Total Protein 7.3 g/dL (6.4-8.2) Albumin 3.0 g/dL (3.4-5.0) Albumin/Globulin Ratio 0.7 (1.0-1.7) Triglycerides Level 75 mg/dL (0-150) Cholesterol Level 157 mg/dL (0-200) LDL Cholesterol, Calculated 92 mg/dL (0-100) VLDL Cholesterol, Calculated 15 mg/dL (0-40) Non-HDL Cholesterol Calculated 107 mg/dL (0-129) HDL Cholesterol 50 mg/dL (40-60) Cholesterol/HDL Ratio 3.1 Vitamin B12 Level 378 pg/mL (247-911) Thyroid Stimulating Hormone (TSH) 2.290 uIU/mL (0.358-3.74) Urine Collection Type Unknown Urine Color Yellow Urine Clarity Clear Urine pH 5.5 Urine Specific [place] 1.015 Urine Protein Negative mg/dL (NEG-TRACE) Urine Glucose (UA) Negative mg/dL (NEG) Urine Ketones (Stick) Negative mg/dL (NEG) Urine Blood Small (NEG) Urine Nitrite Negative (NEG) Urine Bilirubin Negative (NEG) Urine Urobilinogen Dipstick 0.2 mg/dL (0.2 mg/dL) Urine Leukocyte Esterase Small (NEG) Urine RBC 6-10 /HPF (0-2) Urine WBC 1-4 /HPF (0-4) Urine Squamous Epithelial Cells Few /LPF Urine Bacteria 0 /HPF (0-FEW) Urine Opiates Screen Pos (NEG) Urine Methadone Screen Neg (NEG) Urine Barbiturates Neg (NEG) Urine Phencyclidine Screen Neg (NEG) Urine Amphetamine/Methamphetamine Neg (NEG) Urine Benzodiazepines Screen Neg (NEG) Urine Cocaine Screen Neg (NEG) Urine Cannabinoids Screen Pos (NEG) Urine Ethyl Alcohol Neg (NEG) Comment Review of Relevant I have reviewed the following items jamila (where applicable) has been applied. Labs Laboratory Tests Test 05/08/18 03:20 05/08/18 07:30 White Blood Count 5.4 x10^3/uL (4.0-11.0) Red Blood Count 4.29 x10^6/uL (3.50-5.40) Hemoglobin 13.1 g/dL (12.0-15.5) Hematocrit 37.6 % (36.0-47.0) Mean Corpuscular Volume 88 fL (79-100) Mean Corpuscular Hemoglobin 31 pg (25-35) Mean Corpuscular Hemoglobin Concent 35 g/dL (31-37) Red Cell Distribution Width 13.8 % (11.5-14.5) Platelet Count 247 x10^3/uL (140-400) Neutrophils (%) (Auto) 73 % (31-73) Lymphocytes (%) (Auto) 14 % (24-48) Monocytes (%) (Auto) 9 % (0-9) Eosinophils (%) (Auto) 3 % (0-3) Basophils (%) (Auto) 1 % (0-3) Neutrophils # (Auto) 3.9 x10^3uL (1.8-7.7) Lymphocytes # (Auto) 0.8 x10^3/uL (1.0-4.8) Monocytes # (Auto) 0.5 x10^3/uL (0.0-1.1) Eosinophils # (Auto) 0.1 x10^3/uL (0.0-0.7) Basophils # (Auto) 0.0 x10^3/uL (0.0-0.2) Sodium Level 141 mmol/L (136-145) Potassium Level 4.0 mmol/L (3.5-5.1) Chloride Level 102 mmol/L (98-107) Carbon Dioxide Level 29 mmol/L (21-32) Anion Gap 10 (6-14) Blood Urea Nitrogen 8 mg/dL (7-20) Creatinine 0.9 mg/dL (0.6-1.0) Estimated GFR (Cockcroft-Gault) 73.1 BUN/Creatinine Ratio 9 (6-20) Glucose Level 94 mg/dL (70-99) Calcium Level 9.1 mg/dL (8.5-10.1) Total Bilirubin 0.4 mg/dL (0.2-1.0) Aspartate Amino Transf (AST/SGOT) 14 U/L (15-37) Alanine Aminotransferase (ALT/SGPT) 12 U/L (14-59) Alkaline Phosphatase 91 U/L (46-116) Total Protein 7.3 g/dL (6.4-8.2) Albumin 3.0 g/dL (3.4-5.0) Albumin/Globulin Ratio 0.7 (1.0-1.7) Triglycerides Level 75 mg/dL (0-150) Cholesterol Level 157 mg/dL (0-200) LDL Cholesterol, Calculated 92 mg/dL (0-100) VLDL Cholesterol, Calculated 15 mg/dL (0-40) Non-HDL Cholesterol Calculated 107 mg/dL (0-129) HDL Cholesterol 50 mg/dL (40-60) Cholesterol/HDL Ratio 3.1 Vitamin B12 Level 378 pg/mL (247-911) Thyroid Stimulating Hormone (TSH) 2.290 uIU/mL (0.358-3.74) Urine Collection Type Unknown Urine Color Yellow Urine Clarity Clear Urine pH 5.5 Urine Specific [place] 1.015 Urine Protein Negative mg/dL (NEG-TRACE) Urine Glucose (UA) Negative mg/dL (NEG) Urine Ketones (Stick) Negative mg/dL (NEG) Urine Blood Small (NEG) Urine Nitrite Negative (NEG) Urine Bilirubin Negative (NEG) Urine Urobilinogen Dipstick 0.2 mg/dL (0.2 mg/dL) Urine Leukocyte Esterase Small (NEG) Urine RBC 6-10 /HPF (0-2) Urine WBC 1-4 /HPF (0-4) Urine Squamous Epithelial Cells Few /LPF Urine Bacteria 0 /HPF (0-FEW) Urine Opiates Screen Pos (NEG) Urine Methadone Screen Neg (NEG) Urine Barbiturates Neg (NEG) Urine Phencyclidine Screen Neg (NEG) Urine Amphetamine/Methamphetamine Neg (NEG) Urine Benzodiazepines Screen Neg (NEG) Urine Cocaine Screen Neg (NEG) Urine Cannabinoids Screen Pos (NEG) Urine Ethyl Alcohol Neg (NEG) Laboratory Tests Test 05/08/18 03:20 05/08/18 07:30 White Blood Count 5.4 x10^3/uL (4.0-11.0) Red Blood Count 4.29 x10^6/uL (3.50-5.40) Hemoglobin 13.1 g/dL (12.0-15.5) Hematocrit 37.6 % (36.0-47.0) Mean Corpuscular Volume 88 fL (79-100) Mean Corpuscular Hemoglobin 31 pg (25-35) Mean Corpuscular Hemoglobin Concent 35 g/dL (31-37) Red Cell Distribution Width 13.8 % (11.5-14.5) Platelet Count 247 x10^3/uL (140-400) Neutrophils (%) (Auto) 73 % (31-73) Lymphocytes (%) (Auto) 14 % (24-48) Monocytes (%) (Auto) 9 % (0-9) Eosinophils (%) (Auto) 3 % (0-3) Basophils (%) (Auto) 1 % (0-3) Neutrophils # (Auto) 3.9 x10^3uL (1.8-7.7) Lymphocytes # (Auto) 0.8 x10^3/uL (1.0-4.8) Monocytes # (Auto) 0.5 x10^3/uL (0.0-1.1) Eosinophils # (Auto) 0.1 x10^3/uL (0.0-0.7) Basophils # (Auto) 0.0 x10^3/uL (0.0-0.2) Sodium Level 141 mmol/L (136-145) Potassium Level 4.0 mmol/L (3.5-5.1) Chloride Level 102 mmol/L (98-107) Carbon Dioxide Level 29 mmol/L (21-32) Anion Gap 10 (6-14) Blood Urea Nitrogen 8 mg/dL (7-20) Creatinine 0.9 mg/dL (0.6-1.0) Estimated GFR (Cockcroft-Gault) 73.1 BUN/Creatinine Ratio 9 (6-20) Glucose Level 94 mg/dL (70-99) Calcium Level 9.1 mg/dL (8.5-10.1) Total Bilirubin 0.4 mg/dL (0.2-1.0) Aspartate Amino Transf (AST/SGOT) 14 U/L (15-37) Alanine Aminotransferase (ALT/SGPT) 12 U/L (14-59) Alkaline Phosphatase 91 U/L (46-116) Total Protein 7.3 g/dL (6.4-8.2) Albumin 3.0 g/dL (3.4-5.0) Albumin/Globulin Ratio 0.7 (1.0-1.7) Triglycerides Level 75 mg/dL (0-150) Cholesterol Level 157 mg/dL (0-200) LDL Cholesterol, Calculated 92 mg/dL (0-100) VLDL Cholesterol, Calculated 15 mg/dL (0-40) Non-HDL Cholesterol Calculated 107 mg/dL (0-129) HDL Cholesterol 50 mg/dL (40-60) Cholesterol/HDL Ratio 3.1 Vitamin B12 Level 378 pg/mL (247-911) Thyroid Stimulating Hormone (TSH) 2.290 uIU/mL (0.358-3.74) Urine Collection Type Unknown Urine Color Yellow Urine Clarity Clear Urine pH 5.5 Urine Specific [place] 1.015 Urine Protein Negative mg/dL (NEG-TRACE) Urine Glucose (UA) Negative mg/dL (NEG) Urine Ketones (Stick) Negative mg/dL (NEG) Urine Blood Small (NEG) Urine Nitrite Negative (NEG) Urine Bilirubin Negative (NEG) Urine Urobilinogen Dipstick 0.2 mg/dL (0.2 mg/dL) Urine Leukocyte Esterase Small (NEG) Urine RBC 6-10 /HPF (0-2) Urine WBC 1-4 /HPF (0-4) Urine Squamous Epithelial Cells Few /LPF Urine Bacteria 0 /HPF (0-FEW) Urine Opiates Screen Pos (NEG) Urine Methadone Screen Neg (NEG) Urine Barbiturates Neg (NEG) Urine Phencyclidine Screen Neg (NEG) Urine Amphetamine/Methamphetamine Neg (NEG) Urine Benzodiazepines Screen Neg (NEG) Urine Cocaine Screen Neg (NEG) Urine Cannabinoids Screen Pos (NEG) Urine Ethyl Alcohol Neg (NEG) Medications Current Medications Pantoprazole Sodium (PROTONIX VIAL for IV PUSH) 40 mg DAILYAC IVP ; Start 05/07 at 16:30; Stop 05/07/18 at 18:45; Status DC Albuterol Sulfate (Ventolin Neb Soln) 2.5 mg PRN Q4HRS PRN NEB SHORTNESS OF BREATH; Start 05/07/18 at 15:45 Albuterol/ Ipratropium (Duoneb) 3 ml RTQID NEB Last administered on 05/08/18at 11:21; Start 05/07/18 at 16:00 Levofloxacin/ Dextrose (Levaquin Per Pharmacy) 1 each PRN DAILY PRN MC SEE COMMENTS; Start 05/07/18 at 16:00 Levofloxacin/ Dextrose 50 ml @ 50 mls/hr Q24H IV Last administered on at 17:23; Start 05/07/18 at 17:00 Gadobutrol (Gadavist) 6 mmol 1X ONCE IV Last administered on 05/07/18at 16:43 ; Start 05/07/18 at 16:30; Stop 05/07/18 at 16:34; Status DC Oxycodone/ Acetaminophen (Percocet 5/325) 2 tab PRN Q6HRS PRN PO PAIN MOD TO SEV; Start 05/07/18 at 17:15 Oxycodone/ Acetaminophen (Percocet 5/325) 1 tab PRN Q4HRS PRN PO PAIN MILD Last administered on 05/08/18 08:28; Start 05/07/18 at 17:15 Aspirin (Jovany Aspirin) 325 mg DAILYWBKFT PO Last administered on 05/08/18 08 :30; Start 05/07/18 at 18:30 Famotidine (Pepcid) 20 mg BID PO Last administered on 05/08/18 08:29; Start 05/07/18 at 21:00; Stop 05/08/18 at 11:53; Status DC Furosemide (Lasix) 20 mg DAILY PO Last administered on 05/08/18 08:29; Start 05/07/18 at 19:00 Potassium Chloride (Klor-Con) 10 meq DAILY PO Last administered on 05/08/18 08:29; Start 05/07/18 at 19:00 Ketotifen Fumarate (Zaditor) 1 drop BID OU Last administered on 05/08/18 08: 32; Start 05/07/18 at 21:00 Pantoprazole Sodium (Protonix) 40 mg DAILYAC PO Last administered on 08:28; Start 05/07/18 at 19:00 Amlodipine Besylate (Norvasc) 2.5 mg DAILY PO Last administered on 05/08/18 08:29; Start 05/07/18 at 19:00 Amlodipine Besylate (Norvasc) 2.5 mg 1X ONCE PO ; Start 05/07/18 at 19:00; Stop 05/07/18 at 19:01; Status DC Zolpidem Tartrate (Ambien) 5 mg PRN QHS PRN PO INSOMNIA Last administered on at 21:37; Start 05/07/18 at 21:15 Morphine Sulfate (Morphine Sulfate) 4 mg PRN Q2HR PRN IV PAIN Last administered on 05/08/18 10:40; Start 05/08/18 at 10:30 Docusate Sodium (Colace) 100 mg DAILY PO Last administered on 05/08/18 10:39 ; Start 05/08/18 at 11:00 Senna/Docusate Sodium (Senna Plus) 1 tab DAILY PRN PO CONSTIPATION, 2ND CHOICE Last administered on 05/08/18at 10:39; Start 05/08/18 at 10:30 Polyethylene Glycol (miraLAX PACKET) 17 gm PRN DAILY PRN PO CONSTIPATION, 1ST CHOICE Last administered on 05/08/18at 10:39; Start 05/08/18 at 10:30 Atorvastatin Calcium (Lipitor) 10 mg QHS PO ; Start 05/08/18 at 21:00 Famotidine (Pepcid) 20 mg DAILY PO ; Start 05/09/18 at 09:00 Active Scripts Active Pepcid (Famotidine) 20 Mg Tablet 20 Mg PO BID Levsin-Sl (Hyoscyamine Sulfate) 0.125 Mg Tab.subl 1-2 Tab SL PRN Q4HRS PRN Reported Protonix (Pantoprazole Sodium) 20 Mg Tablet.dr 2 Tab PO DAILY Amlodipine Besylate 5 Mg Tablet 5 Mg PO DAILY Patanol (Olopatadine Hcl) 5 Ml Drops 1 Drop EACHEYE BID Lasix (Furosemide) 20 Mg Tablet 1 Tab PO DAILY Klor-Con 10 (Potassium Chloride) 10 Meq Tablet.er 1 Tab PO DAILY Amitiza (Lubiprostone) 8 Mcg Capsule 1 Cap PO BID Toprol Xl (Metoprolol Succinate) 50 Mg Tab.er.24h 1 Tab PO DAILY Vitals/I & O Vital Sign - Last 24 Hours 05/07/18 05/07/18 05/07/18 05/07/18 16:00 17:24 19:00 19:22 Temp 98.2 99.3 98.2 99.3 Pulse 90 88 Resp 24 18 B/P (MAP) 135/66 (89) 131/58 (82) Pulse Ox 97 93 92 O2 Delivery Nasal Cannula Room Air Room Air Room Air O2 Flow Rate 2.0 05/07/18 05/07/18 05/07/18 05/07/18 20:13 20:39 21:00 23:00 Temp 97.7 97.7 Pulse 92 Resp 16 18 B/P (MAP) 119/59 (79) Pulse Ox 94 O2 Delivery Nasal Cannula Room Air Nasal Cannula Room Air O2 Flow Rate 2.0 05/08/18 05/08/18 05/08/18 05/08/18 03:00 05:39 06:45 07:00 Temp 98.1 98.5 98.1 98.5 Pulse 94 89 Resp 16 18 18 B/P (MAP) 156/63 (94) 153/79 (103) Pulse Ox 93 100 94 O2 Delivery Room Air Room Air Room Air Room Air 05/08/18 05/08/18 05/08/18 05/08/18 07:16 08:28 08:29 09:41 Pulse 89 Resp 16 B/P (MAP) 153/79 Pulse Ox 94 O2 Delivery Room Air Nasal Cannula O2 Flow Rate 2.0 05/08/18 05/08/18 05/08/18 10:40 11:00 11:22 Temp 98.3 98.3 Pulse 87 Resp 18 B/P (MAP) 123/59 (80) Pulse Ox 94 96 O2 Delivery Room Air Room Air Room Air Intake and Output 05/07/18 05/07/18 05/08/18 15:00 23:00 07:00 Intake Total 340 ml 500 ml Balance 340 ml 500 ml CURT MURRIETA MD May 08, 2018 12:41
[2018-05-08] MEDS: PSYLLIUM HUSK (SUGAR FREE) 1 PKT PACKET PO SCH (13:00)
--- NOTE | 2018-05-08 13:52 | PDOC ---
G I PROGRESS NOTE Subjective Feels like needs to defecate. Vaguely describes chronic pain; maybe diffuse, maybe worse pc, but w/o eating as well. Crampy. Objective Can document colonoscopies in 2009 and 2014 with diverticulosis on both and maybe polyps with second (done off site by non-GI doc). Multiple EGD's; know had one in [place] in 2012 pretty unremarkable. Abnormal GES in 2008 with significant gastroparesis. On consult from [facility] in our records , evaluating mesenteric vessels was thought of but dismissed. Physical Exam Lungs clear. RRR Abdomen soft, not distended, not particularly tender. Review of Relevant I have reviewed the following items jamila (where applicable) has been applied. Labs Laboratory Tests Test 05/08/18 03:20 05/08/18 07:30 White Blood Count 5.4 x10^3/uL (4.0-11.0) Red Blood Count 4.29 x10^6/uL (3.50-5.40) Hemoglobin 13.1 g/dL (12.0-15.5) Hematocrit 37.6 % (36.0-47.0) Mean Corpuscular Volume 88 fL (79-100) Mean Corpuscular Hemoglobin 31 pg (25-35) Mean Corpuscular Hemoglobin Concent 35 g/dL (31-37) Red Cell Distribution Width 13.8 % (11.5-14.5) Platelet Count 247 x10^3/uL (140-400) Neutrophils (%) (Auto) 73 % (31-73) Lymphocytes (%) (Auto) 14 % (24-48) Monocytes (%) (Auto) 9 % (0-9) Eosinophils (%) (Auto) 3 % (0-3) Basophils (%) (Auto) 1 % (0-3) Neutrophils # (Auto) 3.9 x10^3uL (1.8-7.7) Lymphocytes # (Auto) 0.8 x10^3/uL (1.0-4.8) Monocytes # (Auto) 0.5 x10^3/uL (0.0-1.1) Eosinophils # (Auto) 0.1 x10^3/uL (0.0-0.7) Basophils # (Auto) 0.0 x10^3/uL (0.0-0.2) Sodium Level 141 mmol/L (136-145) Potassium Level 4.0 mmol/L (3.5-5.1) Chloride Level 102 mmol/L (98-107) Carbon Dioxide Level 29 mmol/L (21-32) Anion Gap 10 (6-14) Blood Urea Nitrogen 8 mg/dL (7-20) Creatinine 0.9 mg/dL (0.6-1.0) Estimated GFR (Cockcroft-Gault) 73.1 BUN/Creatinine Ratio 9 (6-20) Glucose Level 94 mg/dL (70-99) Calcium Level 9.1 mg/dL (8.5-10.1) Total Bilirubin 0.4 mg/dL (0.2-1.0) Aspartate Amino Transf (AST/SGOT) 14 U/L (15-37) Alanine Aminotransferase (ALT/SGPT) 12 U/L (14-59) Alkaline Phosphatase 91 U/L (46-116) Total Protein 7.3 g/dL (6.4-8.2) Albumin 3.0 g/dL (3.4-5.0) Albumin/Globulin Ratio 0.7 (1.0-1.7) Triglycerides Level 75 mg/dL (0-150) Cholesterol Level 157 mg/dL (0-200) LDL Cholesterol, Calculated 92 mg/dL (0-100) VLDL Cholesterol, Calculated 15 mg/dL (0-40) Non-HDL Cholesterol Calculated 107 mg/dL (0-129) HDL Cholesterol 50 mg/dL (40-60) Cholesterol/HDL Ratio 3.1 Vitamin B12 Level 378 pg/mL (247-911) Thyroid Stimulating Hormone (TSH) 2.290 uIU/mL (0.358-3.74) Urine Collection Type Unknown Urine Color Yellow Urine Clarity Clear Urine pH 5.5 Urine Specific [place] 1.015 Urine Protein Negative mg/dL (NEG-TRACE) Urine Glucose (UA) Negative mg/dL (NEG) Urine Ketones (Stick) Negative mg/dL (NEG) Urine Blood Small (NEG) Urine Nitrite Negative (NEG) Urine Bilirubin Negative (NEG) Urine Urobilinogen Dipstick 0.2 mg/dL (0.2 mg/dL) Urine Leukocyte Esterase Small (NEG) Urine RBC 6-10 /HPF (0-2) Urine WBC 1-4 /HPF (0-4) Urine Squamous Epithelial Cells Few /LPF Urine Bacteria 0 /HPF (0-FEW) Urine Opiates Screen Pos (NEG) Urine Methadone Screen Neg (NEG) Urine Barbiturates Neg (NEG) Urine Phencyclidine Screen Neg (NEG) Urine Amphetamine/Methamphetamine Neg (NEG) Urine Benzodiazepines Screen Neg (NEG) Urine Cocaine Screen Neg (NEG) Urine Cannabinoids Screen Pos (NEG) Urine Ethyl Alcohol Neg (NEG) Laboratory Tests Test 05/08/18 03:20 05/08/18 07:30 White Blood Count 5.4 x10^3/uL (4.0-11.0) Red Blood Count 4.29 x10^6/uL (3.50-5.40) Hemoglobin 13.1 g/dL (12.0-15.5) Hematocrit 37.6 % (36.0-47.0) Mean Corpuscular Volume 88 fL (79-100) Mean Corpuscular Hemoglobin 31 pg (25-35) Mean Corpuscular Hemoglobin Concent 35 g/dL (31-37) Red Cell Distribution Width 13.8 % (11.5-14.5) Platelet Count 247 x10^3/uL (140-400) Neutrophils (%) (Auto) 73 % (31-73) Lymphocytes (%) (Auto) 14 % (24-48) Monocytes (%) (Auto) 9 % (0-9) Eosinophils (%) (Auto) 3 % (0-3) Basophils (%) (Auto) 1 % (0-3) Neutrophils # (Auto) 3.9 x10^3uL (1.8-7.7) Lymphocytes # (Auto) 0.8 x10^3/uL (1.0-4.8) Monocytes # (Auto) 0.5 x10^3/uL (0.0-1.1) Eosinophils # (Auto) 0.1 x10^3/uL (0.0-0.7) Basophils # (Auto) 0.0 x10^3/uL (0.0-0.2) Sodium Level 141 mmol/L (136-145) Potassium Level 4.0 mmol/L (3.5-5.1) Chloride Level 102 mmol/L (98-107) Carbon Dioxide Level 29 mmol/L (21-32) Anion Gap 10 (6-14) Blood Urea Nitrogen 8 mg/dL (7-20) Creatinine 0.9 mg/dL (0.6-1.0) Estimated GFR (Cockcroft-Gault) 73.1 BUN/Creatinine Ratio 9 (6-20) Glucose Level 94 mg/dL (70-99) Calcium Level 9.1 mg/dL (8.5-10.1) Total Bilirubin 0.4 mg/dL (0.2-1.0) Aspartate Amino Transf (AST/SGOT) 14 U/L (15-37) Alanine Aminotransferase (ALT/SGPT) 12 U/L (14-59) Alkaline Phosphatase 91 U/L (46-116) Total Protein 7.3 g/dL (6.4-8.2) Albumin 3.0 g/dL (3.4-5.0) Albumin/Globulin Ratio 0.7 (1.0-1.7) Triglycerides Level 75 mg/dL (0-150) Cholesterol Level 157 mg/dL (0-200) LDL Cholesterol, Calculated 92 mg/dL (0-100) VLDL Cholesterol, Calculated 15 mg/dL (0-40) Non-HDL Cholesterol Calculated 107 mg/dL (0-129) HDL Cholesterol 50 mg/dL (40-60) Cholesterol/HDL Ratio 3.1 Vitamin B12 Level 378 pg/mL (247-911) Thyroid Stimulating Hormone (TSH) 2.290 uIU/mL (0.358-3.74) Urine Collection Type Unknown Urine Color Yellow Urine Clarity Clear Urine pH 5.5 Urine Specific [place] 1.015 Urine Protein Negative mg/dL (NEG-TRACE) Urine Glucose (UA) Negative mg/dL (NEG) Urine Ketones (Stick) Negative mg/dL (NEG) Urine Blood Small (NEG) Urine Nitrite Negative (NEG) Urine Bilirubin Negative (NEG) Urine Urobilinogen Dipstick 0.2 mg/dL (0.2 mg/dL) Urine Leukocyte Esterase Small (NEG) Urine RBC 6-10 /HPF (0-2) Urine WBC 1-4 /HPF (0-4) Urine Squamous Epithelial Cells Few /LPF Urine Bacteria 0 /HPF (0-FEW) Urine Opiates Screen Pos (NEG) Urine Methadone Screen Neg (NEG) Urine Barbiturates Neg (NEG) Urine Phencyclidine Screen Neg (NEG) Urine Amphetamine/Methamphetamine Neg (NEG) Urine Benzodiazepines Screen Neg (NEG) Urine Cocaine Screen Neg (NEG) Urine Cannabinoids Screen Pos (NEG) Urine Ethyl Alcohol Neg (NEG) Vitals/I & O Vital Sign - Last 24 Hours 05/07/18 05/07/18 05/07/18 05/07/18 16:00 17:24 19:00 19:22 Temp 98.2 99.3 98.2 99.3 Pulse 90 88 Resp 24 18 B/P (MAP) 135/66 (89) 131/58 (82) Pulse Ox 97 93 92 O2 Delivery Nasal Cannula Room Air Room Air Room Air O2 Flow Rate 2.0 05/07/18 05/07/18 05/07/18 05/07/18 20:13 20:39 21:00 23:00 Temp 97.7 97.7 Pulse 92 Resp 16 18 B/P (MAP) 119/59 (79) Pulse Ox 94 O2 Delivery Nasal Cannula Room Air Nasal Cannula Room Air O2 Flow Rate 2.0 05/08/18 05/08/18 05/08/18 05/08/18 03:00 05:39 06:45 07:00 Temp 98.1 98.5 98.1 98.5 Pulse 94 89 Resp 16 18 18 B/P (MAP) 156/63 (94) 153/79 (103) Pulse Ox 93 100 94 O2 Delivery Room Air Room Air Room Air Room Air 05/08/18 05/08/18 05/08/18 05/08/18 07:16 08:28 08:29 09:41 Pulse 89 Resp 16 B/P (MAP) 153/79 Pulse Ox 94 O2 Delivery Room Air Nasal Cannula O2 Flow Rate 2.0 05/08/18 05/08/18 05/08/18 10:40 11:00 11:22 Temp 98.3 98.3 Pulse 87 Resp 18 B/P (MAP) 123/59 (80) Pulse Ox 94 96 O2 Delivery Room Air Room Air Room Air Intake and Output 05/07/18 05/07/18 05/08/18 15:00 23:00 07:00 Intake Total 340 ml 500 ml Balance 340 ml 500 ml Assessment Chronic abdominal pain; chronic mesenteric ischemia? Lots of negative evaluation in the past, but this not looked at. Likely some degree of GERD from the gastroparesis. Diverticulosis, maybe h/o polyps (can't clearly document). Plan of Care Note Will try to doppler mesenteric vessels; if suggestive of mesenteric ischemia, CTA and maybe angio. Dr. Banda on the weekend. RALPH CAMEJO MD May 08, 2018 13:52
[2018-05-08 15:00] VITALS: BP 123/59
--- NOTE | 2018-05-08 15:26 | PDOC ---
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 Small subacute infarct along the right ventricle. Metabolic encephalopathy. Confusion. UTI. HTN. CHF EF 45%. Old small lacunar infarcts near right frontal horn and right occipital lobe. 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 Brain atrophy, cannabinoids induced and CVA. Cannabinoid use/abuse x 50 years. Smoking x 50 years. Drinking. Benzo positive. RECOMMENDATIONS/PLAN: ASA 325 mg daily,. Lipitor 10 mg HS. May consider Keppra 500 mg bid after EEG. Lab: see orders. Treat UTI. Treat medical diseases. Patient education for marijuana and smoking cessation. Discussed in all detail with her and her daughter at bedside on 05/07/18. HISTORY OF THE PRESENT ILLNESS: 77-y-old AA female patient with Hx of marijuana use/abuse and smoking for about 50 years. She had a seizure on 05/07/18 described by her daughter as LOC, eyes rolling back to her head, foam from her mouth, stiffness with shaking movements in her UE mostly for several minutes. Postictally, she was confused and unable to recognize her surroundings. She had 4 similar episodes in the past 1.5 years per her daughter. PMH: HTN, mild valvular heart disease, ?seizure, UTI, diverticulosis. PAST SURGERY HISTORY: Tonsillectomy Appendectomy, Hysterectomy ALLERGY: Reviewed. MEDICATIONS: Refer to [facility] FAMILY HISTORY: Non contributory. No seizures. SOCIAL HISTORY: Lives at home. he smokes < 1 pack of cigarettes a day for 50 years. She drinks alcohol occasionally. She uses marijuana on a daily basis for 50 years.. REVIEW OF SYSTEMS: Constitutional: No cachexia. Head: No recent traumatic brain or head injury. Skin: No edema, or rash. Ear: No infection. Eyes: No vision loss or color blindness. Nose: No bleeding or purulent discharges. Hearing: Mild hearing decrease. Neck: No injury. Breast: No history of cancer, masses,or discharges. Cardiac: HTN. Pulmonary: COPD? longstanding smoking. GI: Diverticulosis. Urinary/genital: UTI. Endocrinologic: No cousin face, craniofacial dysmorphism, polydactyly. Skeletomuscular: No muscular atrophy, deformity. Neurological: see HP. Psychiatric: Substance and drug use/abuse. Otherwise, not [id number] review of systems. PHYSICAL EXAMINATION: General appearance is in subacute distress. HEENT: Normocephalic and nontraumatic. Eyes, nose, ears, and throat are unremarkable. Neck is supple. No lymphadenopathy. No crepitus. Cardiovascular: S1, S2, regular rate and rhythm. Pulmonary: Clear to auscultation bilaterally. Abdomen: Bowel sounds are positive. Extremities: No rash, lesions, or edema. No restriction of range of motion NEUROLOGICAL EXAMINATION: Awake. Not fully oriented to time, but knew place and person. PERRL. EOMI. CN: no focal findings. Muscle tone: within normal. Muscle strength: 4+ DTR: 1-2 Plantar reflex: Neutral response bilaterally Gait: not examined in bed. Sensory exam: no abnormal findings. No acute cerebellar signs elicited. Objective Objective Vital Signs Date Time Temp Pulse Resp B/P (MAP) Pulse Ox O2 Delivery O2 Flow Rate FiO2 05/08/18 15:18 Room Air 05/08/18 15:00 98.3 87 18 123/59 (80) 96 98.3 05/08/18 09:41 2.0 Intake and Output 05/08/18 07:00 Intake Total 840 ml Balance 840 ml Intake Oral 840 ml # Voids 4 Vitals Signs Vitals VS - Last 72 Hours, by Label Date Time Temp Pulse Resp B/P (MAP) Pulse Ox O2 Delivery O2 Flow Rate FiO2 05/08/18 15:18 Room Air 05/08/18 15:00 98.3 87 18 123/59 (80) 96 Room Air 98.3 05/08/18 14:09 Room Air 05/08/18 11:22 Room Air 05/08/18 11:00 98.3 87 18 123/59 (80) 96 Room Air 98.3 05/08/18 10:40 94 Room Air 05/08/18 09:41 94 Nasal Cannula 2.0 05/08/18 08:29 89 153/79 05/08/18 08:28 Room Air 05/08/18 07:16 16 05/08/18 07:00 98.5 89 18 153/79 (103) 94 Room Air 98.5 05/08/18 06:45 100 Room Air 05/08/18 05:39 18 Room Air 05/08/18 03:00 98.1 94 16 156/63 (94) 93 Room Air 98.1 05/07/18 23:00 97.7 92 18 119/59 (79) 94 Room Air 97.7 05/07/18 21:00 Nasal Cannula 05/07/18 20:39 16 Room Air 05/07/18 20:13 Nasal Cannula 2.0 05/07/18 19:22 92 Room Air 05/07/18 19:00 99.3 88 18 131/58 (82) 93 Room Air 99.3 05/07/18 17:24 Room Air 05/07/18 16:00 98.2 90 24 135/66 (89) 97 Nasal Cannula 2.0 98.2 Laboratory Laboratory Laboratory Tests Test 05/08/18 03:20 05/08/18 07:30 White Blood Count 5.4 x10^3/uL (4.0-11.0) Red Blood Count 4.29 x10^6/uL (3.50-5.40) Hemoglobin 13.1 g/dL (12.0-15.5) Hematocrit 37.6 % (36.0-47.0) Mean Corpuscular Volume 88 fL (79-100) Mean Corpuscular Hemoglobin 31 pg (25-35) Mean Corpuscular Hemoglobin Concent 35 g/dL (31-37) Red Cell Distribution Width 13.8 % (11.5-14.5) Platelet Count 247 x10^3/uL (140-400) Neutrophils (%) (Auto) 73 % (31-73) Lymphocytes (%) (Auto) 14 % (24-48) Monocytes (%) (Auto) 9 % (0-9) Eosinophils (%) (Auto) 3 % (0-3) Basophils (%) (Auto) 1 % (0-3) Neutrophils # (Auto) 3.9 x10^3uL (1.8-7.7) Lymphocytes # (Auto) 0.8 x10^3/uL (1.0-4.8) Monocytes # (Auto) 0.5 x10^3/uL (0.0-1.1) Eosinophils # (Auto) 0.1 x10^3/uL (0.0-0.7) Basophils # (Auto) 0.0 x10^3/uL (0.0-0.2) Sodium Level 141 mmol/L (136-145) Potassium Level 4.0 mmol/L (3.5-5.1) Chloride Level 102 mmol/L (98-107) Carbon Dioxide Level 29 mmol/L (21-32) Anion Gap 10 (6-14) Blood Urea Nitrogen 8 mg/dL (7-20) Creatinine 0.9 mg/dL (0.6-1.0) Estimated GFR (Cockcroft-Gault) 73.1 BUN/Creatinine Ratio 9 (6-20) Glucose Level 94 mg/dL (70-99) Calcium Level 9.1 mg/dL (8.5-10.1) Total Bilirubin 0.4 mg/dL (0.2-1.0) Aspartate Amino Transf (AST/SGOT) 14 U/L (15-37) Alanine Aminotransferase (ALT/SGPT) 12 U/L (14-59) Alkaline Phosphatase 91 U/L (46-116) Total Protein 7.3 g/dL (6.4-8.2) Albumin 3.0 g/dL (3.4-5.0) Albumin/Globulin Ratio 0.7 (1.0-1.7) Triglycerides Level 75 mg/dL (0-150) Cholesterol Level 157 mg/dL (0-200) LDL Cholesterol, Calculated 92 mg/dL (0-100) VLDL Cholesterol, Calculated 15 mg/dL (0-40) Non-HDL Cholesterol Calculated 107 mg/dL (0-129) HDL Cholesterol 50 mg/dL (40-60) Cholesterol/HDL Ratio 3.1 Vitamin B12 Level 378 pg/mL (247-911) Thyroid Stimulating Hormone (TSH) 2.290 uIU/mL (0.358-3.74) Urine Collection Type Unknown Urine Color Yellow Urine Clarity Clear Urine pH 5.5 Urine Specific [place] 1.015 Urine Protein Negative mg/dL (NEG-TRACE) Urine Glucose (UA) Negative mg/dL (NEG) Urine Ketones (Stick) Negative mg/dL (NEG) Urine Blood Small (NEG) Urine Nitrite Negative (NEG) Urine Bilirubin Negative (NEG) Urine Urobilinogen Dipstick 0.2 mg/dL (0.2 mg/dL) Urine Leukocyte Esterase Small (NEG) Urine RBC 6-10 /HPF (0-2) Urine WBC 1-4 /HPF (0-4) Urine Squamous Epithelial Cells Few /LPF Urine Bacteria 0 /HPF (0-FEW) Urine Opiates Screen Pos (NEG) Urine Methadone Screen Neg (NEG) Urine Barbiturates Neg (NEG) Urine Phencyclidine Screen Neg (NEG) Urine Amphetamine/Methamphetamine Neg (NEG) Urine Benzodiazepines Screen Neg (NEG) Urine Cocaine Screen Neg (NEG) Urine Cannabinoids Screen Pos (NEG) Urine Ethyl Alcohol Neg (NEG) Medication Medications Current Medications Albuterol Sulfate (Ventolin Neb Soln) 2.5 mg PRN Q4HRS PRN NEB SHORTNESS OF BREATH; Start 05/07/18 at 15:45 Albuterol/ Ipratropium (Duoneb) 3 ml RTQID NEB Last administered on 05/08/18at 15:18; Start 05/07/18 at 16:00 Amlodipine Besylate (Norvasc) 2.5 mg 1X ONCE PO ; Start 05/07/18 at 19:00; Stop 05/07/18 at 19:01; Status DC Amlodipine Besylate (Norvasc) 2.5 mg DAILY PO Last administered on 05/08/18at 08:29; Start 05/07/18 at 19:00 Aspirin (Jovany Aspirin) 325 mg DAILYWBKFT PO Last administered on 05/08/18at 08 :30; Start 05/07/18 at 18:30 Atorvastatin Calcium (Lipitor) 10 mg QHS PO ; Start 05/08/18 at 21:00 Docusate Sodium (Colace) 100 mg DAILY PO Last administered on 05/08/18at 10:39 ; Start 05/08/18 at 11:00 Famotidine (Pepcid) 20 mg BID PO Last administered on 05/08/18at 08:29; Start 05/07/18 at 21:00; Stop 05/08/18 at 11:53; Status DC Famotidine (Pepcid) 20 mg DAILY PO ; Start 05/09/18 at 09:00; Stop 05/09/18 at 09:00; Status DC Furosemide (Lasix) 20 mg DAILY PO Last administered on 05/08/18at 08:29; Start 05/07/18 at 19:00 Gadobutrol (Gadavist) 6 mmol 1X ONCE IV Last administered on 05/07/18at 16:43 ; Start 05/07/18 at 16:30; Stop 05/07/18 at 16:34; Status DC Ketotifen Fumarate (Zaditor) 1 drop BID OU Last administered on 05/08/18at 08: 32; Start 05/07/18 at 21:00 Levofloxacin/ Dextrose 50 ml @ 50 mls/hr Q24H IV Last administered on at 17:23; Start 05/07/18 at 17:00 Levofloxacin/ Dextrose (Levaquin Per Pharmacy) 1 each PRN DAILY PRN MC SEE COMMENTS; Start 05/07/18 at 16:00 Morphine Sulfate (Morphine Sulfate) 4 mg PRN Q2HR PRN IV PAIN Last administered on 05/08/18at 10:40; Start 05/08/18 at 10:30 Oxycodone/ Acetaminophen (Percocet 5/325) 1 tab PRN Q4HRS PRN PO PAIN MILD Last administered on 05/08/18at 08:28; Start 05/07/18 at 17:15 Oxycodone/ Acetaminophen (Percocet 5/325) 2 tab PRN Q6HRS PRN PO PAIN MOD TO SEV; Start 05/07/18 at 17:15 Pantoprazole Sodium (PROTONIX VIAL for IV PUSH) 40 mg DAILYAC IVP ; Start 05/07 at 16:30; Stop 05/07/18 at 18:45; Status DC Pantoprazole Sodium (Protonix) 40 mg DAILYAC PO Last administered on at 08:28; Start 05/07/18 at 19:00 Polyethylene Glycol (miraLAX PACKET) 17 gm PRN DAILY PRN PO CONSTIPATION, 1ST CHOICE Last administered on 05/08/18at 10:39; Start 05/08/18 at 10:30 Potassium Chloride (Klor-Con) 10 meq DAILY PO Last administered on 05/08/18at 08:29; Start 05/07/18 at 19:00 Psyllium Hydrophilic Mucilloid (Metamucil Fiber Packet) 1 pkt DAILY PO ; Start 05/08/18 at 13:00 Senna/Docusate Sodium (Senna Plus) 1 tab DAILY PRN PO CONSTIPATION, 2ND CHOICE Last administered on 05/08/18at 10:39; Start 05/08/18 at 10:30 Zolpidem Tartrate (Ambien) 5 mg PRN QHS PRN PO INSOMNIA Last administered on at 21:37; Start 05/07/18 at 21:15 Comment Review of Relevant I have reviewed the following items jamila (where applicable) has been applied. JUAN PABLO BARRIOS MD May 08, 2018 15:26
[2018-05-08 19:15] VITALS: BP 120/61
[2018-05-08] MEDS: ZOLPIDEM 5 MG TABLET. PO PRN (21:20)
[2018-05-08] MEDS: LACTOBACILLUS RHAMNOSUS GG 1 CAPSULE. PO SCH (21:20)
[2018-05-08] MEDS: ATORVASTATIN CALCIUM 10 MG TABLET. PO SCH (21:20)
[2018-05-08 23:31] VITALS: BP 118/64
[2018-05-09 03:36] VITALS: BP 129/80
[2018-05-09] MEDS: PANTOPRAZOLE 40 MG TABLET.DR. PO SCH (05:34)
[2018-05-09] MEDS: oxyCODONE/APAP 5/325 1 TAB TABLET PO PRN ×3 (05:34→21:57)
[2018-05-09 07:00] VITALS: BP 157/86
--- NOTE | 2018-05-09 07:34 | PDOC ---
PROGRESS NOTES Chief Complaint Chief Complaint Seizures CVA syndrome THC and tobacco use, Metabolic encephalopathy acute abdominal pain with diarrhea UTI HTN. anxiety disorder chronic pain History of Present Illness History of Present Illness Ms. Cates is a 77 y/o female transferred here from [facility] ER Had a seizure at the grocery store and EMS called, per ER there, patient had prev. been instructed to get MRI of her brain and had not been completed. She uses THC for chronic pain, tobacco use > 50 years. She also complained of abd pain with diarrhea for 2 days. right sided pain and feels constipated now, pain 12/28 Imaging reviewed, new CVA, RUQ US non-revealing. Still c/o abdominal pain and feeling of constipation worse today. Able to sit up in bed now. 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 Distal 1/3 of LV is mildly hypokinetic. Doppler and Color Flow revealed mild to moderate aortic regurgitation. Mitral annular calcification is mild. The posterior mitral valve leaflet appears thickened. 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 LV EF 45% THC and tobacco use - counseled Metabolic encephalopathy - possibly 2/2 CVA or UTI acute abdominal pain with diarrhea - GI consulted UTI - on levaquin HTN - goal SBP < 150mmHg Anxiety disorder - managed Chronic pain Diet - General PPX - Heparin FULL CODE Inpatient for at least 2 midnights for CVA recovery, PT/OT/COPY MANAGER Vitals Vitals Vital Signs Date Time Temp Pulse Resp B/P (MAP) Pulse Ox O2 Delivery O2 Flow Rate FiO2 05/09/18 05:34 18 Room Air 05/09/18 03:36 98.8 102 129/80 (96) 94 98.8 05/08/18 09:41 2.0 Physical Exam General: Alert, Oriented X3, Cooperative, No acute distress Heart: Normal S1, Normal S2, No murmurs Lungs: Wheezing, Crackles Abdomen: Normal bowel sounds, Soft, Other (Diffuse tenderness) Extremities: No edema, Normal pulses Skin: No rashes Comment Review of Relevant I have reviewed the following items jamila (where applicable) has been applied. Labs Laboratory Tests Test 05/08/18 03:20 05/08/18 07:30 White Blood Count 5.4 x10^3/uL (4.0-11.0) Red Blood Count 4.29 x10^6/uL (3.50-5.40) Hemoglobin 13.1 g/dL (12.0-15.5) Hematocrit 37.6 % (36.0-47.0) Mean Corpuscular Volume 88 fL (79-100) Mean Corpuscular Hemoglobin 31 pg (25-35) Mean Corpuscular Hemoglobin Concent 35 g/dL (31-37) Red Cell Distribution Width 13.8 % (11.5-14.5) Platelet Count 247 x10^3/uL (140-400) Neutrophils (%) (Auto) 73 % (31-73) Lymphocytes (%) (Auto) 14 % (24-48) Monocytes (%) (Auto) 9 % (0-9) Eosinophils (%) (Auto) 3 % (0-3) Basophils (%) (Auto) 1 % (0-3) Neutrophils # (Auto) 3.9 x10^3uL (1.8-7.7) Lymphocytes # (Auto) 0.8 x10^3/uL (1.0-4.8) Monocytes # (Auto) 0.5 x10^3/uL (0.0-1.1) Eosinophils # (Auto) 0.1 x10^3/uL (0.0-0.7) Basophils # (Auto) 0.0 x10^3/uL (0.0-0.2) Sodium Level 141 mmol/L (136-145) Potassium Level 4.0 mmol/L (3.5-5.1) Chloride Level 102 mmol/L (98-107) Carbon Dioxide Level 29 mmol/L (21-32) Anion Gap 10 (6-14) Blood Urea Nitrogen 8 mg/dL (7-20) Creatinine 0.9 mg/dL (0.6-1.0) Estimated GFR (Cockcroft-Gault) 73.1 BUN/Creatinine Ratio 9 (6-20) Glucose Level 94 mg/dL (70-99) Calcium Level 9.1 mg/dL (8.5-10.1) Total Bilirubin 0.4 mg/dL (0.2-1.0) Aspartate Amino Transf (AST/SGOT) 14 U/L (15-37) Alanine Aminotransferase (ALT/SGPT) 12 U/L (14-59) Alkaline Phosphatase 91 U/L (46-116) Total Protein 7.3 g/dL (6.4-8.2) Albumin 3.0 g/dL (3.4-5.0) Albumin/Globulin Ratio 0.7 (1.0-1.7) Triglycerides Level 75 mg/dL (0-150) Cholesterol Level 157 mg/dL (0-200) LDL Cholesterol, Calculated 92 mg/dL (0-100) VLDL Cholesterol, Calculated 15 mg/dL (0-40) Non-HDL Cholesterol Calculated 107 mg/dL (0-129) HDL Cholesterol 50 mg/dL (40-60) Cholesterol/HDL Ratio 3.1 Vitamin B12 Level 378 pg/mL (247-911) Thyroid Stimulating Hormone (TSH) 2.290 uIU/mL (0.358-3.74) Urine Collection Type Unknown Urine Color Yellow Urine Clarity Clear Urine pH 5.5 Urine Specific [place] 1.015 Urine Protein Negative mg/dL (NEG-TRACE) Urine Glucose (UA) Negative mg/dL (NEG) Urine Ketones (Stick) Negative mg/dL (NEG) Urine Blood Small (NEG) Urine Nitrite Negative (NEG) Urine Bilirubin Negative (NEG) Urine Urobilinogen Dipstick 0.2 mg/dL (0.2 mg/dL) Urine Leukocyte Esterase Small (NEG) Urine RBC 6-10 /HPF (0-2) Urine WBC 1-4 /HPF (0-4) Urine Squamous Epithelial Cells Few /LPF Urine Bacteria 0 /HPF (0-FEW) Urine Opiates Screen Pos (NEG) Urine Methadone Screen Neg (NEG) Urine Barbiturates Neg (NEG) Urine Phencyclidine Screen Neg (NEG) Urine Amphetamine/Methamphetamine Neg (NEG) Urine Benzodiazepines Screen Neg (NEG) Urine Cocaine Screen Neg (NEG) Urine Cannabinoids Screen Pos (NEG) Urine Ethyl Alcohol Neg (NEG) Medications Current Medications Pantoprazole Sodium (PROTONIX VIAL for IV PUSH) 40 mg DAILYAC IVP ; Start 05/07 at 16:30; Stop 05/07/18 at 18:45; Status DC Albuterol Sulfate (Ventolin Neb Soln) 2.5 mg PRN Q4HRS PRN NEB SHORTNESS OF BREATH; Start 05/07/18 at 15:45 Albuterol/ Ipratropium (Duoneb) 3 ml RTQID NEB Last administered on 05/08/18 19:56; Start 05/07/18 at 16:00 Levofloxacin/ Dextrose (Levaquin Per Pharmacy) 1 each PRN DAILY PRN MC SEE COMMENTS; Start 05/07/18 at 16:00 Levofloxacin/ Dextrose 50 ml @ 50 mls/hr Q24H IV Last administered on at 17:42; Start 05/07/18 at 17:00 Gadobutrol (Gadavist) 6 mmol 1X ONCE IV Last administered on 05/07/18 16:43 ; Start 05/07/18 at 16:30; Stop 05/07/18 at 16:34; Status DC Oxycodone/ Acetaminophen (Percocet 5/325) 2 tab PRN Q6HRS PRN PO PAIN MOD TO SEV Last administered on 05/09/18 05:34; Start 05/07/18 at 17:15 Oxycodone/ Acetaminophen (Percocet 5/325) 1 tab PRN Q4HRS PRN PO PAIN MILD Last administered on 05/08/18 08:28; Start 05/07/18 at 17:15 Aspirin (Nor1 Aspirin) 325 mg DAILYWBKFT PO Last administered on 05/08/18 08 :30; Start 05/07/18 at 18:30 Famotidine (Pepcid) 20 mg BID PO Last administered on 05/08/18 08:29; Start 05/07/18 at 21:00; Stop 05/08/18 at 11:53; Status DC Furosemide (Lasix) 20 mg DAILY PO Last administered on 05/08/18 08:29; Start 05/07/18 at 19:00 Potassium Chloride (Klor-Con) 10 meq DAILY PO Last administered on 05/08/18at 08:29; Start 05/07/18 at 19:00 Ketotifen Fumarate (Zaditor) 1 drop BID OU Last administered on 05/08/18at 21: 20; Start 05/07/18 at 21:00 Pantoprazole Sodium (Protonix) 40 mg DAILYAC PO Last administered on 05:34; Start 05/07/18 at 19:00 Amlodipine Besylate (Norvasc) 2.5 mg DAILY PO Last administered on 05/08/18at 08:29; Start 05/07/18 at 19:00 Amlodipine Besylate (Norvasc) 2.5 mg 1X ONCE PO ; Start 05/07/18 at 19:00; Stop 05/07/18 at 19:01; Status DC Zolpidem Tartrate (Ambien) 5 mg PRN QHS PRN PO INSOMNIA Last administered on at 21:20; Start 05/07/18 at 21:15 Morphine Sulfate (Morphine Sulfate) 4 mg PRN Q2HR PRN IV PAIN Last administered on 05/08/18at 10:40; Start 05/08/18 at 10:30 Docusate Sodium (Colace) 100 mg DAILY PO Last administered on 05/08/18at 10:39 ; Start 05/08/18 at 11:00 Senna/Docusate Sodium (Senna Plus) 1 tab DAILY PRN PO CONSTIPATION, 2ND CHOICE Last administered on 05/08/18at 10:39; Start 05/08/18 at 10:30 Polyethylene Glycol (miraLAX PACKET) 17 gm PRN DAILY PRN PO CONSTIPATION, 1ST CHOICE Last administered on 05/08/18at 10:39; Start 05/08/18 at 10:30 Atorvastatin Calcium (Lipitor) 10 mg QHS PO Last administered on 05/08/18at 21: 20; Start 05/08/18 at 21:00 Famotidine (Pepcid) 20 mg DAILY PO ; Start 05/09/18 at 09:00; Stop 05/09/18 at 09:00; Status DC Psyllium Hydrophilic Mucilloid (Metamucil Fiber Packet) 1 pkt DAILY PO ; Start 05/08/18 at 13:00 Lactobacillus Rhamnosus (Culturelle) 1 cap BID PO Last administered on at 21:20; Start 05/08/18 at 21:00 Active Scripts Active Pepcid (Famotidine) 20 Mg Tablet 20 Mg PO BID Levsin-Sl (Hyoscyamine Sulfate) 0.125 Mg Tab.subl 1-2 Tab SL PRN Q4HRS PRN Reported Protonix (Pantoprazole Sodium) 20 Mg Tablet.dr 2 Tab PO DAILY Amlodipine Besylate 5 Mg Tablet 5 Mg PO DAILY Patanol (Olopatadine Hcl) 5 Ml Drops 1 Drop EACHEYE BID Lasix (Furosemide) 20 Mg Tablet 1 Tab PO DAILY Klor-Con 10 (Potassium Chloride) 10 Meq Tablet.er 1 Tab PO DAILY Amitiza (Lubiprostone) 8 Mcg Capsule 1 Cap PO BID Toprol Xl (Metoprolol Succinate) 50 Mg Tab.er.24h 1 Tab PO DAILY Vitals/I & O Vital Sign - Last 24 Hours 05/08/18 05/08/18 05/08/18 05/08/18 08:00 08:28 08:29 09:41 Pulse 89 B/P (MAP) 153/79 Pulse Ox 94 O2 Delivery Nasal Cannula Room Air Nasal Cannula O2 Flow Rate 2.0 2.0 05/08/18 05/08/18 05/08/18 05/08/18 10:40 11:00 11:22 14:09 Temp 98.3 98.3 Pulse 87 Resp 18 B/P (MAP) 123/59 (80) Pulse Ox 94 96 O2 Delivery Room Air Room Air Room Air Room Air 05/08/18 05/08/18 05/08/18 05/08/18 15:00 15:18 17:41 19:15 Temp 98.3 98.6 98.3 98.6 Pulse 87 90 Resp 18 18 B/P (MAP) 123/59 (80) 120/61 (80) Pulse Ox 96 91 O2 Delivery Room Air Room Air Room Air Room Air 05/08/18 05/08/18 05/08/18 05/08/18 19:16 19:57 20:00 23:31 Temp 98.5 98.5 Pulse 84 Resp 18 B/P (MAP) 118/64 (82) Pulse Ox 97 O2 Delivery Nasal Cannula Room Air Nasal Cannula Room Air 05/09/18 05/09/18 03:36 05:34 Temp 98.8 98.8 Pulse 102 Resp 18 18 B/P (MAP) 129/80 (96) Pulse Ox 94 O2 Delivery Room Air Room Air Intake and Output 05/08/18 05/08/18 05/09/18 15:00 23:00 07:00 Intake Total 120 ml 480 ml Balance 120 ml 480 ml CURT MURRIETA MD May 09, 2018 07:34
[2018-05-09] MEDS: IPRATRPIUM/ALBUTEROL 0.5/2.5MG 3 ML NEBU. NEB SCH ×4 (07:36→20:16)
[2018-05-09] MEDS: ASPIRIN 325 MG TABLET PO SCH ×2 (08:00→08:39)
--- NOTE | 2018-05-09 08:22 | RAD ---
ABD PELVIS RETROPERITON DOPP INDICATION: ABD PAIN COMPARISON: Abdominal ultrasound dated 05/07/2018. TECHNIQUE: Real-time grayscale and color duplex Doppler ultrasound of the abdomen was obtained in order to evaluate the mesenteric arterial vasculature. FINDINGS: Atherosclerotic plaque noted within the visualized arterial system. The aorta peak systolic velocity is 121 cm/s. The proximal superior mesenteric artery peak systolic velocity is 154 cm/s. The mid superior mesenteric artery peak systolic velocity is 157 cm/s. The distal superior mesenteric artery peak systolic velocity is 134 cm/s. The celiac artery peak systolic velocity is 308 cm/s. Hepatic artery peak systolic velocity is 152 cm/s. 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 Electronically signed by: Yohan Guadarrama MD (05/09/2018 8:19 AM) [facility]
[2018-05-09] MEDS: LACTOBACILLUS RHAMNOSUS GG 1 CAPSULE. PO SCH ×2 (08:38→21:57)
[2018-05-09] MEDS: DOCUSATE SODIUM 100 MG CAPSULE. PO SCH (08:38)
[2018-05-09] MEDS: amLODIPine BESYLATE 2.5 MG TABLET PO SCH (08:38)
[2018-05-09] MEDS: KETOTIFEN FUMARATE 0.025% OPHTH SOLUTION BOTTLE. OU SCH ×2 (08:38→21:57)
[2018-05-09] MEDS: FUROSEMIDE 20 MG TABLET PO SCH (08:39)
[2018-05-09] MEDS: POTASSIUM CHLORIDE 10 MEQ TABLET.ER. PO SCH (08:39)
[2018-05-09] MEDS: PSYLLIUM HUSK (SUGAR FREE) 1 PKT PACKET PO SCH (08:39)
[2018-05-09] MEDS: MORPHINE SULFATE 4 MG/ML VIAL. IV PRN (08:41)
[2018-05-09] MEDS ORDERED: FAMOTIDINE 20 MG TABLET. PO SCH (09:00)
[2018-05-09 11:00] VITALS: BP 125/71
[2018-05-09] MEDS ORDERED: LACTULOSE for RECTAL 200 GM/300 ML SOLUTION. PR ONE (12:45)
[2018-05-09] MEDS: SIMETHICONE 80 MG TAB.CHEW PO PRN (14:13)
[2018-05-09] MEDS: LACTULOSE 20 GM/30 ML SOLUTION. PO PRN (14:13)
--- NOTE | 2018-05-09 16:58 | PDOC ---
Subjective: Subjective: Patient was examined at bed side. She has continued to have abdominal pain. patient could not tell if the pain is aggravated by eating. She was also unable to tell if she has significant weight loss. She has been on multiple stool softeners and laxatives with no satisfactory response of her constipation. No fever, chills or sweating. No chest pain, sob or PND. No other complaints. Objective: Vital Signs: Vital Signs Date Time Temp Pulse Resp B/P (MAP) Pulse Ox O2 Delivery O2 Flow Rate FiO2 05/09/18 15:19 Room Air 05/09/18 12:50 20 05/09/18 11:00 98.2 94 125/71 (89) 90 98.2 05/08/18 09:41 2.0 Imaging: ULTRASOUND OF ABDOMEN:: 1. No evidence of acute cholecystitis. 2. No definite gallstones are seen. Electronically signed by: Sylvain Hays MD (05/08/2018 4:49 AM) 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 Electronically signed by: Yohan Guadarrama MD (05/09/2018 8:19 AM) [facility] DICTATED and SIGNED BY: YOHAN GUADARRAMA MD DATE: 05/09/18814 PE: GEN: NAD HEENT: Atraumatic, PERRLA LUNGS: CTAB HEART: RRR, no murmurs ABD: NABS, S/ND/NT, no masses EXTREMITY: No edema SKIN: No rashes, no jaundice NEURO/PSYCH: A & O 3 A/P: 77 years old female patient with past medical history of chronic constipation and substance abuse including marijuana. Patient currently admitted with concern of seizure after brought for brief loss of consciousness with rolling of the eyes and drooling of saliva along with abnormal movement of extremities. 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 Her clinical presentation along with the Doppler finding may be consistent with chronic mesenteric ischemia. There was no evidence of cholelithiasis or cholecystitis. Recommendations: - Bowel regimen: Miralax 17 grams 2-3 times as needed. - Recommend to stop Amitiza and start her 290mcg linzess daily upon discharge. - May need to proceed with noncontrast MR angiography of abdomen for further evaluation of celiac stenosis( patient reports that she is allergic to contrasts ). - PT/OT - GI will be available for any Q's. Thank you for involving us in the care of this interesting patient. KERWIN SILVA MD May 09, 2018 16:58
[2018-05-09 19:00] VITALS: BP 136/68
[2018-05-09] MEDS: ATORVASTATIN CALCIUM 10 MG TABLET. PO SCH (21:57)
[2018-05-09] MEDS: POLYETHYLENE GLYCOL 3350 17 GM PACKET. PO PRN (22:03)
[2018-05-09 23:00] VITALS: BP 142/69
[2018-05-10] MEDS: oxyCODONE/APAP 5/325 1 TAB TABLET PO PRN ×5 (02:55→22:00)
[2018-05-10 03:00] VITALS: BP 140/71
[2018-05-10] MEDS: PANTOPRAZOLE 40 MG TABLET.DR. PO SCH (05:49)
[2018-05-10] MEDS: IPRATRPIUM/ALBUTEROL 0.5/2.5MG 3 ML NEBU. NEB SCH ×4 (06:12→18:23)
[2018-05-10 07:00] VITALS: BP 134/74
--- NOTE | 2018-05-10 07:27 | PDOC ---
PROGRESS NOTES Chief Complaint Chief Complaint Seizures CVA syndrome THC and tobacco use, Metabolic encephalopathy acute abdominal pain with diarrhea UTI HTN. anxiety disorder chronic pain History of Present Illness History of Present Illness Ms. Cates is a 77 y/o female transferred here from [facility] ER Had a seizure at the grocery store and EMS called, per ER there, patient had prev. been instructed to get MRI of her brain and had not been completed. She uses THC for chronic pain, tobacco use > 50 years. She also complained of abd pain with diarrhea for 2 days. Right sided pain and feels constipated now, pain 6/10. 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 Still c/o abdominal pain and feeling of constipation worse today. Able to sit up in bed now. 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 Distal 1/3 of LV is mildly hypokinetic. Doppler and Color Flow revealed mild to moderate aortic regurgitation. Mitral annular calcification is mild. The posterior mitral valve leaflet appears thickened. 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 LV EF 45% THC and tobacco use - counseled Metabolic encephalopathy - possibly 2/2 CVA or UTI Celiac stenosis - May need to proceed with noncontrast MR angiography of abdomen for further evaluation of celiac stenosis (patient reports that she is allergic to contrasts) Acute abdominal pain with diarrhea - GI consulted UTI - on levaquin HTN - goal SBP < 150mmHg Anxiety disorder - managed Chronic pain Diet - General PPX - Heparin FULL CODE Inpatient for at least 2 midnights for CVA recovery, PT/OT/DIRECTOR PLANS Vitals Vitals Vital Signs Date Time Temp Pulse Resp B/P (MAP) Pulse Ox O2 Delivery O2 Flow Rate FiO2 05/10/18 06:07 Room Air 05/10/18 03:00 98.4 98 18 140/71 (94) 92 98.4 Physical Exam General: Alert, Oriented X3, Cooperative, No acute distress Heart: Normal S1, Normal S2, No murmurs Lungs: Wheezing, Crackles Abdomen: Normal bowel sounds, Soft, Other (Diffuse tenderness) Extremities: No edema, Normal pulses Skin: No rashes Comment Review of Relevant I have reviewed the following items jamila (where applicable) has been applied. Labs Laboratory Tests Test 05/08/18 07:30 Urine Collection Type Unknown Urine Color Yellow Urine Clarity Clear Urine pH 5.5 Urine Specific [place] 1.015 Urine Protein Negative mg/dL (NEG-TRACE) Urine Glucose (UA) Negative mg/dL (NEG) Urine Ketones (Stick) Negative mg/dL (NEG) Urine Blood Small (NEG) Urine Nitrite Negative (NEG) Urine Bilirubin Negative (NEG) Urine Urobilinogen Dipstick 0.2 mg/dL (0.2 mg/dL) Urine Leukocyte Esterase Small (NEG) Urine RBC 6-10 /HPF (0-2) Urine WBC 1-4 /HPF (0-4) Urine Squamous Epithelial Cells Few /LPF Urine Bacteria 0 /HPF (0-FEW) Urine Opiates Screen Pos (NEG) Urine Methadone Screen Neg (NEG) Urine Barbiturates Neg (NEG) Urine Phencyclidine Screen Neg (NEG) Urine Amphetamine/Methamphetamine Neg (NEG) Urine Benzodiazepines Screen Neg (NEG) Urine Cocaine Screen Neg (NEG) Urine Cannabinoids Screen Pos (NEG) Urine Ethyl Alcohol Neg (NEG) Microbiology 05/08/18 Urine Culture - Final, Complete 05/08/18 Urine Culture Result 1 (CARLIE) - Final, Complete Medications Current Medications Pantoprazole Sodium (PROTONIX VIAL for IV PUSH) 40 mg DAILYAC IVP ; Start 05/07 at 16:30; Stop 05/07/18 at 18:45; Status DC Albuterol Sulfate (Ventolin Neb Soln) 2.5 mg PRN Q4HRS PRN NEB SHORTNESS OF BREATH; Start 05/07/18 at 15:45 Albuterol/ Ipratropium (Duoneb) 3 ml RTQID NEB Last administered on 05/10/18at 06:12; Start 05/07/18 at 16:00 Levofloxacin/ Dextrose (Levaquin Per Pharmacy) 1 each PRN DAILY PRN MC SEE COMMENTS; Start 05/07/18 at 16:00 Levofloxacin/ Dextrose 50 ml @ 50 mls/hr Q24H IV Last administered on at 17:42; Start 05/07/18 at 17:00; Stop 05/09/18 at 15:06; Status DC Gadobutrol (Gadavist) 6 mmol 1X ONCE IV Last administered on 05/07/18at 16:43 ; Start 05/07/18 at 16:30; Stop 05/07/18 at 16:34; Status DC Oxycodone/ Acetaminophen (Percocet 5/325) 2 tab PRN Q6HRS PRN PO PAIN MOD TO SEV Last administered on 05/09/18at 11:50; Start 05/07/18 at 17:15 Oxycodone/ Acetaminophen (Percocet 5/325) 1 tab PRN Q4HRS PRN PO PAIN MILD Last administered on 05/10/18 05:49; Start 05/07/18 at 17:15 Aspirin (Jovany Aspirin) 325 mg DAILYWBKFT PO Last administered on 05/08/18 08 :30; Start 05/07/18 at 18:30 Famotidine (Pepcid) 20 mg BID PO Last administered on 05/08/18 08:29; Start 05/07/18 at 21:00; Stop 05/08/18 at 11:53; Status DC Furosemide (Lasix) 20 mg DAILY PO Last administered on 05/09/18 08:39; Start 05/07/18 at 19:00 Potassium Chloride (Klor-Con) 10 meq DAILY PO Last administered on 05/09/18 08:39; Start 05/07/18 at 19:00 Ketotifen Fumarate (Zaditor) 1 drop BID OU Last administered on 05/09/18 21: 57; Start 05/07/18 at 21:00 Pantoprazole Sodium (Protonix) 40 mg DAILYAC PO Last administered on 05:49; Start 05/07/18 at 19:00 Amlodipine Besylate (Norvasc) 2.5 mg DAILY PO Last administered on 05/09/18at 08:38; Start 05/07/18 at 19:00 Amlodipine Besylate (Norvasc) 2.5 mg 1X ONCE PO ; Start 05/07/18 at 19:00; Stop 05/07/18 at 19:01; Status DC Zolpidem Tartrate (Ambien) 5 mg PRN QHS PRN PO INSOMNIA Last administered on at 21:20; Start 05/07/18 at 21:15 Morphine Sulfate (Morphine Sulfate) 4 mg PRN Q2HR PRN IV PAIN Last administered on 05/09/18 08:41; Start 05/08/18 at 10:30 Docusate Sodium (Colace) 100 mg DAILY PO Last administered on 05/09/18 08:38 ; Start 05/08/18 at 11:00 Senna/Docusate Sodium (Senna Plus) 1 tab DAILY PRN PO CONSTIPATION, 2ND CHOICE Last administered on 05/08/18 10:39; Start 05/08/18 at 10:30 Polyethylene Glycol (miraLAX PACKET) 17 gm PRN DAILY PRN PO CONSTIPATION, 1ST CHOICE Last administered on 05/08/18 10:39; Start 05/08/18 at 10:30; Stop at 20:16; Status DC Atorvastatin Calcium (Lipitor) 10 mg QHS PO Last administered on 05/09/18 21: 57; Start 05/08/18 at 21:00 Famotidine (Pepcid) 20 mg DAILY PO ; Start 05/09/18 at 09:00; Stop 05/09/18 at 09:00; Status DC Psyllium Hydrophilic Mucilloid (Metamucil Fiber Packet) 1 pkt DAILY PO Last administered on 05/09/18 08:39; Start 05/08/18 at 13:00 Lactobacillus Rhamnosus (Culturelle) 1 cap BID PO Last administered on 21:57; Start 05/08/18 at 21:00 Lactulose (LACTULOSE 300ML for RECTAL) 200 gm 1X ONCE NV ; Start 05/09/18 at 12:45; Stop 05/09/18 at 12:46; Status UNV Lactulose (Lactulose) 20 gm PRN DAILY PRN PO CONSTIPATION 3RD CHOICE Last administered on 05/09/18 14:13; Start 05/09/18 at 12:45 Simethicone (Gas-X) 80 mg PRN AFTMEALHC PRN PO GAS / BLOATING Last administered on 05/09/18 14:13; Start 05/09/18 at 12:45 Levofloxacin (Levaquin) 250 mg QHS PO Last administered on 05/09/18 21:57; Start 05/09/18 at 21:00 Polyethylene Glycol (miraLAX PACKET) 17 gm PRN TID PRN PO CONSTIPATION, 1ST CHOICE Last administered on 10/20/18at 22:03; Start 05/09/18 at 20:30 Active Scripts Active Pepcid (Famotidine) 20 Mg Tablet 20 Mg PO BID Levsin-Sl (Hyoscyamine Sulfate) 0.125 Mg Tab.subl 1-2 Tab SL PRN Q4HRS PRN Reported Protonix (Pantoprazole Sodium) 20 Mg Tablet.dr 2 Tab PO DAILY Amlodipine Besylate 5 Mg Tablet 5 Mg PO DAILY Patanol (Olopatadine Hcl) 5 Ml Drops 1 Drop EACHEYE BID Lasix (Furosemide) 20 Mg Tablet 1 Tab PO DAILY Klor-Con 10 (Potassium Chloride) 10 Meq Tablet.er 1 Tab PO DAILY Amitiza (Lubiprostone) 8 Mcg Capsule 1 Cap PO BID Toprol Xl (Metoprolol Succinate) 50 Mg Tab.er.24h 1 Tab PO DAILY Vitals/I & O Vital Sign - Last 24 Hours 05/09/18 05/09/18 05/09/18 05/09/18 07:37 08:00 08:38 08:41 Pulse 102 Resp 22 B/P (MAP) 129/80 Pulse Ox 96 O2 Delivery Room Air Room Air Room Air 05/09/18 05/09/18 05/09/18 05/09/18 09:11 11:00 11:19 11:50 Temp 98.2 98.2 Pulse 94 Resp 20 18 20 B/P (MAP) 125/71 (89) Pulse Ox 90 O2 Delivery Room Air Room Air Room Air Room Air 05/09/18 05/09/18 05/09/18 05/09/18 12:50 15:19 19:00 20:00 Temp 99.2 99.2 Pulse 105 Resp 20 18 B/P (MAP) 136/68 (90) Pulse Ox 95 O2 Delivery Room Air Room Air Room Air Room Air 05/09/18 05/09/18 05/10/18 05/10/18 20:16 23:00 03:00 06:07 Temp 99.3 98.4 99.3 98.4 Pulse 110 98 Resp 18 18 B/P (MAP) 142/69 (93) 140/71 (94) Pulse Ox 94 92 O2 Delivery Room Air Room Air Room Air Room Air CURT MURRIETA MD May 10, 2018 07:27
[2018-05-10] MEDS: KETOTIFEN FUMARATE 0.025% OPHTH SOLUTION BOTTLE. OU SCH ×2 (09:08→22:06)
[2018-05-10] MEDS: POLYETHYLENE GLYCOL 3350 17 GM PACKET. PO PRN ×2 (09:08→22:00)
[2018-05-10] MEDS: LACTOBACILLUS RHAMNOSUS GG 1 CAPSULE. PO SCH ×2 (09:08→22:00)
[2018-05-10] MEDS: PSYLLIUM HUSK (SUGAR FREE) 1 PKT PACKET PO SCH (09:09)
[2018-05-10] MEDS: FUROSEMIDE 20 MG TABLET PO SCH (09:09)
[2018-05-10] MEDS: amLODIPine BESYLATE 2.5 MG TABLET PO SCH (09:09)
[2018-05-10] MEDS: POTASSIUM CHLORIDE 10 MEQ TABLET.ER. PO SCH (09:09)
[2018-05-10] MEDS: DOCUSATE SODIUM 100 MG CAPSULE. PO SCH (09:09)
[2018-05-10] MEDS: ASPIRIN 325 MG TABLET PO SCH (09:10)
[2018-05-10 11:00] VITALS: BP 148/63
[2018-05-10] MEDS ORDERED: MINERAL OIL 30 ML for ORAL USE. PO PRN (13:00)
[2018-05-10] MEDS: SUCRALFATE 1 GM TABLET. PO PRN (14:50)
[2018-05-10] MEDS: LACTULOSE 20 GM/30 ML SOLUTION. PO PRN (14:50)
[2018-05-10] MEDS: ASPIRIN ENTERIC COATED 81 MG TABLET.DR. PO SCH (14:50)
[2018-05-10 15:00] VITALS: BP 123/53
[2018-05-10] MEDS: MORPHINE SULFATE 4 MG/ML VIAL. IV PRN (17:33)
[2018-05-10] MEDS: ALPRAZolam 0.25 MG TABLET PO PRN (18:17)
[2018-05-10 19:53] VITALS: BP 124/71
[2018-05-10] MEDS: ATORVASTATIN CALCIUM 10 MG TABLET. PO SCH (22:00)
[2018-05-10] MEDS: ZOLPIDEM 5 MG TABLET. PO PRN (22:00)
[2018-05-10 23:15] VITALS: BP 104/57
[2018-05-11] VITALS (7 sets, daily range): BP systolic 106–162; BP diastolic 54–87
[2018-05-11] MEDS: oxyCODONE/APAP 5/325 1 TAB TABLET PO PRN ×4 (03:51→20:38)
[2018-05-11] MEDS: PANTOPRAZOLE 40 MG TABLET.DR. PO SCH (05:07)
[2018-05-11] MEDS: IPRATRPIUM/ALBUTEROL 0.5/2.5MG 3 ML NEBU. NEB SCH ×4 (07:31→20:22)
[2018-05-11 07:44] LABS: BASO # 0.1 x10^3/uL (0.0-0.2); BASO % 1 % (0-3); EOS # 0.1 x10^3/uL (0.0-0.7); EOS % 1 % (0-3); HEMATOCRIT 36.5 % (36.0-47.0); HEMOGLOBIN 12.5 g/dL (12.0-15.5); LYMPH # 0.4 x10^3/uL (1.0-4.8); LYMPH % 4 % (24-48); MEAN CORPUSCULAR HEMOGLOBIN 30 pg (25-35); MEAN CORPUSCULAR HGB CONC 34 g/dL (31-37); MEAN CORPUSCULAR VOLUME 89 fL (79-100); MONO # 0.8 x10^3/uL (0.0-1.1); MONO % 8 % (0-9); NEUT # 8.4 x10^3uL (1.8-7.7); NEUT % 86 % (31-73); PLATELET COUNT 237 x10^3/uL (140-400); RED CELL DISTRIBUTION WIDTH 13.6 % (11.5-14.5); WHITE BLOOD COUNT 9.8 x10^3/uL (4.0-11.0)
--- NOTE | 2018-05-11 07:46 | PDOC ---
PROGRESS NOTES Chief Complaint Chief Complaint Seizures CVA syndrome THC and tobacco use, Metabolic encephalopathy acute abdominal pain with diarrhea UTI HTN. anxiety disorder chronic pain History of Present Illness History of Present Illness Ms. Cates is a 77 y/o female transferred here from [facility] ER Had a seizure at the grocery store and EMS called, per ER there, patient had prev. been instructed to get MRI of her brain and had not been completed. She uses THC for chronic pain, tobacco use > 50 years. She also complained of abd pain with diarrhea for 2 days. Right sided pain and feels constipated now, pain 6/10. 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 Still c/o abdominal pain and feeling of constipation worse today. Able to sit up in bed now. C/o not tolerating ASA well, baby aspirin EC better tolerated. She is aware of her new CVA, but not concerned. 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 Distal 1/3 of LV is mildly hypokinetic. Doppler and Color Flow revealed mild to moderate aortic regurgitation. Mitral annular calcification is mild. The posterior mitral valve leaflet appears thickened. 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 LV EF 45% THC and tobacco use - counseled Metabolic encephalopathy - possibly 2/2 CVA or UTI Celiac stenosis - May need to proceed with noncontrast MR angiography of abdomen for further evaluation of celiac stenosis (patient reports that she is allergic to contrasts) Acute abdominal pain with diarrhea - GI consulted UTI - on levaquin HTN - goal SBP < 150mmHg Anxiety disorder - managed Chronic pain Diet - General PPX - Heparin FULL CODE Inpatient for at least 2 midnights for CVA recovery, PT/OT/RN ASSESSMENT. needs BM soon, will need skilled svcs on d/c Vitals Vitals Vital Signs Date Time Temp Pulse Resp B/P (MAP) Pulse Ox O2 Delivery O2 Flow Rate FiO2 05/11/18 03:23 98.4 114 17 132/68 (89) 100 Room Air 98.4 Physical Exam General: Alert, Oriented X3, Cooperative, No acute distress Heart: Normal S1, Normal S2, No murmurs Lungs: Wheezing, Crackles Abdomen: Normal bowel sounds, Soft, Other (Diffuse tenderness) Extremities: No edema, Normal pulses Skin: No rashes Comment Review of Relevant I have reviewed the following items jamila (where applicable) has been applied. Labs Microbiology 05/08/18 Urine Culture - Final, Complete 05/08/18 Urine Culture Result 1 (CARLIE) - Final, Complete Medications Current Medications Pantoprazole Sodium (PROTONIX VIAL for IV PUSH) 40 mg DAILYAC IVP ; Start 05/07 at 16:30; Stop 05/07/18 at 18:45; Status DC Albuterol Sulfate (Ventolin Neb Soln) 2.5 mg PRN Q4HRS PRN NEB SHORTNESS OF BREATH; Start 05/07/18 at 15:45 Albuterol/ Ipratropium (Duoneb) 3 ml RTQID NEB Last administered on 05/10/18at 18:23; Start 05/07/18 at 16:00 Levofloxacin/ Dextrose (Levaquin Per Pharmacy) 1 each PRN DAILY PRN MC SEE COMMENTS; Start 05/07/18 at 16:00 Levofloxacin/ Dextrose 50 ml @ 50 mls/hr Q24H IV Last administered on at 17:42; Start 05/07/18 at 17:00; Stop 05/09/18 at 15:06; Status DC Gadobutrol (Gadavist) 6 mmol 1X ONCE IV Last administered on 05/07/18at 16:43 ; Start 05/07/18 at 16:30; Stop 05/07/18 at 16:34; Status DC Oxycodone/ Acetaminophen (Percocet 5/325) 2 tab PRN Q6HRS PRN PO PAIN MOD TO SEV Last administered on 05/10/18at 22:00; Start 05/07/18 at 17:15 Oxycodone/ Acetaminophen (Percocet 5/325) 1 tab PRN Q4HRS PRN PO PAIN MILD Last administered on 05/11/18at 05:07; Start 05/07/18 at 17:15 Aspirin (Jovany Aspirin) 325 mg DAILYWBKFT PO Last administered on 05/08/18at 08 :30; Start 05/07/18 at 18:30; Stop 05/10/18 at 14:06; Status DC Famotidine (Pepcid) 20 mg BID PO Last administered on 05/08/18at 08:29; Start 05/07/18 at 21:00; Stop 05/08/18 at 11:53; Status DC Furosemide (Lasix) 20 mg DAILY PO Last administered on 05/10/18 09:09; Start 05/07/18 at 19:00 Potassium Chloride (Klor-Con) 10 meq DAILY PO Last administered on 05/10/18 09:09; Start 05/07/18 at 19:00 Ketotifen Fumarate (Zaditor) 1 drop BID OU Last administered on 05/10/18 22: 06; Start 05/07/18 at 21:00 Pantoprazole Sodium (Protonix) 40 mg DAILYAC PO Last administered on 05:07; Start 05/07/18 at 19:00 Amlodipine Besylate (Norvasc) 2.5 mg DAILY PO Last administered on 05/10/18 09:09; Start 05/07/18 at 19:00 Amlodipine Besylate (Norvasc) 2.5 mg 1X ONCE PO ; Start 05/07/18 at 19:00; Stop 05/07/18 at 19:01; Status DC Zolpidem Tartrate (Ambien) 5 mg PRN QHS PRN PO INSOMNIA Last administered on 22:00; Start 05/07/18 at 21:15 Morphine Sulfate (Morphine Sulfate) 4 mg PRN Q2HR PRN IV PAIN Last administered on 05/10/18at 17:33; Start 05/08/18 at 10:30 Docusate Sodium (Colace) 100 mg DAILY PO Last administered on 05/10/18 09:09 ; Start 05/08/18 at 11:00 Senna/Docusate Sodium (Senna Plus) 1 tab DAILY PRN PO CONSTIPATION, 2ND CHOICE Last administered on 05/08/18 10:39; Start 05/08/18 at 10:30 Polyethylene Glycol (miraLAX PACKET) 17 gm PRN DAILY PRN PO CONSTIPATION, 1ST CHOICE Last administered on 05/08/18at 10:39; Start 05/08/18 at 10:30; Stop at 20:16; Status DC Atorvastatin Calcium (Lipitor) 10 mg QHS PO Last administered on 05/10/18at 22: 00; Start 05/08/18 at 21:00 Famotidine (Pepcid) 20 mg DAILY PO ; Start 05/09/18 at 09:00; Stop 05/09/18 at 09:00; Status DC Psyllium Hydrophilic Mucilloid (Metamucil Fiber Packet) 1 pkt DAILY PO Last administered on 05/10/18at 09:09; Start 05/08/18 at 13:00 Lactobacillus Rhamnosus (Culturelle) 1 cap BID PO Last administered on 22:00; Start 05/08/18 at 21:00 Lactulose (LACTULOSE 300ML for RECTAL) 200 gm 1X ONCE NH ; Start 05/09/18 at 12:45; Stop 05/09/18 at 12:46; Status UNV Lactulose (Lactulose) 20 gm PRN DAILY PRN PO CONSTIPATION 3RD CHOICE Last administered on 05/10/18 14:50; Start 05/09/18 at 12:45 Simethicone (Gas-X) 80 mg PRN AFTMEALHC PRN PO GAS / BLOATING Last administered on 05/09/18at 14:13; Start 05/09/18 at 12:45 Levofloxacin (Levaquin) 250 mg QHS PO Last administered on 05/10/18 22:00; Start 05/09/18 at 21:00 Polyethylene Glycol (miraLAX PACKET) 17 gm PRN TID PRN PO CONSTIPATION, 1ST CHOICE Last administered on 05/10/18at 22:00; Start 05/09/18 at 20:30 Mineral Oil (Mineral Oil) 30 ml PRN DAILY PRN PO CONSTIPATION, UNREL BY OTHERS Last administered on 05/10/18at 13:36; Start 05/10/18 at 13:00 Aspirin (Ecotrin) 81 mg DAILYWBKFT PO Last administered on 05/10/18 14:50; Start 05/10/18 at 14:15 Sucralfate (Carafate) 1 gm PRN BFRMEALHC PRN PO STOMACH PAIN Last administered on 05/10/18 14:50; Start 05/10/18 at 14:15 Alprazolam (Xanax) 0.25 mg PRN BID PRN PO ANXIETY / AGITATION Last administered on 05/10/18 18:17; Start 05/10/18 at 18:15 Active Scripts Active Pepcid (Famotidine) 20 Mg Tablet 20 Mg PO BID Levsin-Sl (Hyoscyamine Sulfate) 0.125 Mg Tab.subl 1-2 Tab SL PRN Q4HRS PRN Reported Protonix (Pantoprazole Sodium) 20 Mg Tablet.dr 2 Tab PO DAILY Amlodipine Besylate 5 Mg Tablet 5 Mg PO DAILY Patanol (Olopatadine Hcl) 5 Ml Drops 1 Drop EACHEYE BID Lasix (Furosemide) 20 Mg Tablet 1 Tab PO DAILY Klor-Con 10 (Potassium Chloride) 10 Meq Tablet.er 1 Tab PO DAILY Amitiza (Lubiprostone) 8 Mcg Capsule 1 Cap PO BID Toprol Xl (Metoprolol Succinate) 50 Mg Tab.er.24h 1 Tab PO DAILY Vitals/I & O Vital Sign - Last 24 Hours 05/10/18 05/10/18 05/10/18 05/10/18 08:30 09:09 09:09 09:10 Pulse 123 B/P (MAP) 134/74 O2 Delivery Room Air Room Air Room Air 05/10/18 05/10/18 05/10/18 05/10/18 11:00 11:20 13:39 14:50 Temp 97.8 97.8 Pulse 102 Resp 16 B/P (MAP) 148/63 (91) Pulse Ox 94 O2 Delivery Room Air Room Air Room Air Room Air 05/10/18 05/10/18 05/10/18 05/10/18 15:00 15:29 17:33 18:19 Temp 98.1 98.1 Pulse 103 Resp 16 B/P (MAP) 123/53 (76) Pulse Ox 100 O2 Delivery Room Air Room Air Room Air Room Air 05/10/18 05/10/18 05/10/18 05/10/18 18:23 19:53 20:00 23:15 Temp 99.1 99.5 99.1 99.5 Pulse 116 114 Resp 18 16 B/P (MAP) 124/71 (88) 104/57 (73) Pulse Ox 94 97 O2 Delivery Room Air Room Air Room Air Room Air 05/11/18 03:23 Temp 98.4 98.4 Pulse 114 Resp 17 B/P (MAP) 132/68 (89) Pulse Ox 100 O2 Delivery Room Air Intake and Output 05/10/18 05/10/18 05/11/18 15:00 23:00 07:00 Intake Total 300 ml Balance 300 ml CURT MURRIETA MD May 11, 2018 07:46
[2018-05-11 08:05] LABS: ALBUMIN 2.6 g/dL (3.4-5.0); ALBUMIN/GLOBULIN RATIO 0.6 (1.0-1.7); CALCIUM 9.2 mg/dL (8.5-10.1); CREATININE 0.9 mg/dL (0.6-1.0); GFR 73.1; POTASSIUM 4.1 mmol/L (3.5-5.1); TOTAL BILIRUBIN 0.4 mg/dL (0.2-1.0); TOTAL PROTEIN 7.2 g/dL (6.4-8.2)
[2018-05-11] MEDS: ASPIRIN ENTERIC COATED 81 MG TABLET.DR. PO SCH (08:09)
[2018-05-11] MEDS: LACTOBACILLUS RHAMNOSUS GG 1 CAPSULE. PO SCH ×2 (08:09→20:36)
[2018-05-11] MEDS: POTASSIUM CHLORIDE 10 MEQ TABLET.ER. PO SCH (08:09)
[2018-05-11] MEDS: SENNOSIDES/DOCUSATE 8.6/50MG TABLET. PO PRN (08:09)
[2018-05-11] MEDS: KETOTIFEN FUMARATE 0.025% OPHTH SOLUTION BOTTLE. OU SCH ×2 (08:09→20:37)
[2018-05-11] MEDS: PSYLLIUM HUSK (SUGAR FREE) 1 PKT PACKET PO SCH (08:10)
[2018-05-11] MEDS: DOCUSATE SODIUM 100 MG CAPSULE. PO SCH (08:10)
[2018-05-11] MEDS: LACTULOSE 20 GM/30 ML SOLUTION. PO PRN (08:10)
[2018-05-11] MEDS: ALPRAZolam 0.25 MG TABLET PO PRN (08:10)
[2018-05-11] MEDS: amLODIPine BESYLATE 2.5 MG TABLET PO SCH (08:12)
[2018-05-11] MEDS: FUROSEMIDE 20 MG TABLET PO SCH (08:12)
[2018-05-11 10:38] LABS: % BANDS 2 % (0-9); % EOS 1 % (0-5); % LYMPHS 4 % (24-48); % MONOS 7 % (0-10); % SEGS 86 % (35-66); PLT ESTIMATE ADEQUATE (ADEQUATE)
--- NOTE | 2018-05-11 14:18 | PDOC ---
Subjective: Subjective: Pt continues to report abdominal pain, mostly in the right side of her abdomen. She denies nausea or vomiting. She has not had a BM in 4 days despite taking MiraLAX, Senna, prune juice. She takes Amitiza 8 mcg BID at home and wonders if she may restart this. Objective: Vital Signs: Vital Signs Date Time Temp Pulse Resp B/P (MAP) Pulse Ox O2 Delivery O2 Flow Rate FiO2 05/11/18 11:00 97.4 113 20 112/82 (92) 94 Room Air 97.4 Labs: Laboratory Tests Test 05/11/18 07:15 White Blood Count 9.8 x10^3/uL Red Blood Count 4.10 x10^6/uL Hemoglobin 12.5 g/dL Hematocrit 36.5 % Mean Corpuscular Volume 89 fL Mean Corpuscular Hemoglobin 30 pg Mean Corpuscular Hemoglobin Concent 34 g/dL Red Cell Distribution Width 13.6 % Platelet Count 237 x10^3/uL Neutrophils (%) (Auto) 86 % Lymphocytes (%) (Auto) 4 % Monocytes (%) (Auto) 8 % Eosinophils (%) (Auto) 1 % Basophils (%) (Auto) 1 % Neutrophils # (Auto) 8.4 x10^3uL Lymphocytes # (Auto) 0.4 x10^3/uL Monocytes # (Auto) 0.8 x10^3/uL Eosinophils # (Auto) 0.1 x10^3/uL Basophils # (Auto) 0.1 x10^3/uL Segmented Neutrophils % 86 % Band Neutrophils % 2 % Lymphocytes % 4 % Monocytes % 7 % Eosinophils % 1 % Platelet Estimate Adequate Sodium Level 136 mmol/L Potassium Level 4.1 mmol/L Chloride Level 99 mmol/L Carbon Dioxide Level 30 mmol/L Anion Gap 7 Blood Urea Nitrogen 8 mg/dL Creatinine 0.9 mg/dL Estimated GFR (Cockcroft-Gault) 73.1 BUN/Creatinine Ratio 9 Glucose Level 104 mg/dL Calcium Level 9.2 mg/dL Total Bilirubin 0.4 mg/dL Aspartate Amino Transf (AST/SGOT) 16 U/L Alanine Aminotransferase (ALT/SGPT) 12 U/L Alkaline Phosphatase 88 U/L Total Protein 7.2 g/dL Albumin 2.6 g/dL Albumin/Globulin Ratio 0.6 Imaging: Doppler ultrasound 10/21/18 IMPRESSION: Elevated celiac artery peak systolic velocity consistent with 70 percent or greater stenosis. PE: GEN: NAD HEENT: Atraumatic, PERRLA LUNGS: CTAB HEART: RRR, no murmurs ABD: Diffusely tender, worse in RUQ and RLQ EXTREMITY: No edema SKIN: No rashes, no jaundice NEURO/PSYCH: A & O 3 A/P: Recommendations: - Constipation: Will restart Amitiza at 8 mcg BID- may need to increase dose if constipation persists - Abnormal doppler ultrasound with 70% Celiac artery stenosis- will order MR angiography for further evaluation - PT/OT FELA GREGORY May 11, 2018 14:18
[2018-05-11] MEDS ORDERED: GADOBUTROL 7.5 MMOL/7.5 ML VIAL IV ONE (14:30)
--- NOTE | 2018-05-11 14:40 | PDOC ---
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 Small subacute infarct along the right ventricle. Metabolic encephalopathy. Confusion. UTI. HTN. CHF EF 45%. Abdominal pain. Old small lacunar infarcts near right frontal horn and right occipital lobe. 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 Brain atrophy, cannabinoids induced and CVA. Cannabinoid use/abuse x 50 years. Smoking x 50 years. Drinking. Benzo positive. RECOMMENDATIONS/PLAN: ASA 325 mg daily,. Lipitor 10 mg HS. Keppra 500 mg bid. Treat UTI. Treat medical diseases. Consulted GI. Patient education for marijuana and smoking cessation. Discussed in all detail again with her and her daughter at bedside on 05/11/18. HISTORY OF THE PRESENT ILLNESS: 77-y-old AA female patient with Hx of marijuana use/abuse and smoking for about 50 years. She had a seizure on 05/07/18 described by her daughter as LOC, eyes rolling back to her head, foam from her mouth, stiffness with shaking movements in her UE mostly for several minutes. Postictally, she was confused and unable to recognize her surroundings. She had 4 similar episodes in the past 1.5 years per her daughter. PMH: HTN, mild valvular heart disease, ?seizure, UTI, diverticulosis. PAST SURGERY HISTORY: Tonsillectomy Appendectomy, Hysterectomy ALLERGY: Reviewed. MEDICATIONS: Refer to [facility] FAMILY HISTORY: Non contributory. No seizures. SOCIAL HISTORY: Lives at home. he smokes < 1 pack of cigarettes a day for 50 years. She drinks alcohol occasionally. She uses marijuana on a daily basis for 50 years.. REVIEW OF SYSTEMS: Constitutional: No cachexia. Head: No recent traumatic brain or head injury. Skin: No edema, or rash. Ear: No infection. Eyes: No vision loss or color blindness. Nose: No bleeding or purulent discharges. Hearing: Mild hearing decrease. Neck: No injury. Breast: No history of cancer, masses,or discharges. Cardiac: HTN. Pulmonary: COPD? longstanding smoking. GI: Diverticulosis. Urinary/genital: UTI. Endocrinologic: No cousin face, craniofacial dysmorphism, polydactyly. Skeletomuscular: No muscular atrophy, deformity. Neurological: see HP. Psychiatric: Substance and drug use/abuse. Otherwise, not [id number] review of systems. PHYSICAL EXAMINATION: General appearance is in subacute distress. HEENT: Normocephalic and nontraumatic. Eyes, nose, ears, and throat are unremarkable. Neck is supple. No lymphadenopathy. No crepitus. Cardiovascular: S1, S2, regular rate and rhythm. Pulmonary: Clear to auscultation bilaterally. Abdomen: Bowel sounds are positive. Extremities: No rash, lesions, or edema. No restriction of range of motion NEUROLOGICAL EXAMINATION: Awake. Sitting in chair. Oriented to time, place and person. PERRL. EOMI. CN: no focal findings. Muscle tone: within normal. Muscle strength: 5- DTR: 1-2 Plantar reflex: Neutral response bilaterally Gait: not examined in chair. Sensory exam: no abnormal findings. No acute cerebellar signs elicited. Objective Objective Vital Signs Date Time Temp Pulse Resp B/P (MAP) Pulse Ox O2 Delivery O2 Flow Rate FiO2 05/11/18 11:00 97.4 113 20 112/82 (92) 94 Room Air 97.4 Intake and Output 05/11/18 07:00 Intake Total 300 ml Balance 300 ml Intake Oral 300 ml # Voids 11 Vitals Signs Vitals VS - Last 72 Hours, by Label Date Time Temp Pulse Resp B/P (MAP) Pulse Ox O2 Delivery O2 Flow Rate FiO2 05/11/18 11:00 97.4 113 20 112/82 (92) 94 Room Air 97.4 05/11/18 08:12 103 106/62 05/11/18 08:00 Room Air 05/11/18 07:00 99.0 103 24 106/62 (77) 94 Room Air 99.0 05/11/18 03:23 98.4 114 17 132/68 (89) 100 Room Air 98.4 05/10/18 23:15 99.5 114 16 104/57 (73) 97 Room Air 99.5 05/10/18 20:00 Room Air 05/10/18 19:53 99.1 116 18 124/71 (88) 94 Room Air 99.1 05/10/18 18:23 Room Air 05/10/18 18:19 Room Air 05/10/18 17:33 Room Air 05/10/18 15:29 Room Air 05/10/18 15:00 98.1 103 16 123/53 (76) 100 Room Air 98.1 05/10/18 14:50 Room Air 05/10/18 13:39 Room Air 05/10/18 11:20 Room Air 05/10/18 11:00 97.8 102 16 148/63 (91) 94 Room Air 97.8 05/10/18 09:10 Room Air 05/10/18 09:09 123 134/74 05/10/18 09:09 Room Air 05/10/18 08:30 Room Air 05/10/18 07:00 98.1 123 16 134/74 (94) 100 Room Air 98.1 Laboratory Laboratory Laboratory Tests Test 05/11/18 07:15 White Blood Count 9.8 x10^3/uL (4.0-11.0) Red Blood Count 4.10 x10^6/uL (3.50-5.40) Hemoglobin 12.5 g/dL (12.0-15.5) Hematocrit 36.5 % (36.0-47.0) Mean Corpuscular Volume 89 fL (79-100) Mean Corpuscular Hemoglobin 30 pg (25-35) Mean Corpuscular Hemoglobin Concent 34 g/dL (31-37) Red Cell Distribution Width 13.6 % (11.5-14.5) Platelet Count 237 x10^3/uL (140-400) Neutrophils (%) (Auto) 86 % (31-73) Lymphocytes (%) (Auto) 4 % (24-48) Monocytes (%) (Auto) 8 % (0-9) Eosinophils (%) (Auto) 1 % (0-3) Basophils (%) (Auto) 1 % (0-3) Neutrophils # (Auto) 8.4 x10^3uL (1.8-7.7) Lymphocytes # (Auto) 0.4 x10^3/uL (1.0-4.8) Monocytes # (Auto) 0.8 x10^3/uL (0.0-1.1) Eosinophils # (Auto) 0.1 x10^3/uL (0.0-0.7) Basophils # (Auto) 0.1 x10^3/uL (0.0-0.2) Segmented Neutrophils % 86 % (35-66) Band Neutrophils % 2 % (0-9) Lymphocytes % 4 % (24-48) Monocytes % 7 % (0-10) Eosinophils % 1 % (0-5) Platelet Estimate Adequate (ADEQUATE) Sodium Level 136 mmol/L (136-145) Potassium Level 4.1 mmol/L (3.5-5.1) Chloride Level 99 mmol/L (98-107) Carbon Dioxide Level 30 mmol/L (21-32) Anion Gap 7 (6-14) Blood Urea Nitrogen 8 mg/dL (7-20) Creatinine 0.9 mg/dL (0.6-1.0) Estimated GFR (Cockcroft-Gault) 73.1 BUN/Creatinine Ratio 9 (6-20) Glucose Level 104 mg/dL (70-99) Calcium Level 9.2 mg/dL (8.5-10.1) Total Bilirubin 0.4 mg/dL (0.2-1.0) Aspartate Amino Transf (AST/SGOT) 16 U/L (15-37) Alanine Aminotransferase (ALT/SGPT) 12 U/L (14-59) Alkaline Phosphatase 88 U/L (46-116) Total Protein 7.2 g/dL (6.4-8.2) Albumin 2.6 g/dL (3.4-5.0) Albumin/Globulin Ratio 0.6 (1.0-1.7) Microbiology 05/08/18 Urine Culture - Final, Complete 05/08/18 Urine Culture Result 1 (CARLIE) - Final, Complete Medication Medications Current Medications Alprazolam (Xanax) 0.25 mg PRN BID PRN PO ANXIETY / AGITATION Last administered on 05/11/18at 08:10; Start 05/10/18 at 18:15 Gadobutrol (Gadavist) 7.5 mmol 1X ONCE IV ; Start 05/11/18 at 14:30; Stop at 14:31; Status DC Influenza Virus Vaccine (Afluria Trivalent [id number] Syringe) 0.5 ml ONCE ONCE VAX IM ; Start 05/11/18 at 10:30; Stop 05/11/18 at 10:31; Status DC Lubiprostone (Amitiza) 8 mcg BIDWMEALS PO ; Start 05/11/18 at 17:00 Comment Review of Relevant I have reviewed the following items jamila (where applicable) has been applied. JUAN PABLO BARRIOS MD May 11, 2018 14:40
--- NOTE | 2018-05-11 16:01 | RAD ---
MRA of the abdomen with contrast 05/11/2018 CLINICAL HISTORY: Abdominal pain. 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 TECHNIQUE: After the intravenous administration of 7.5 cc of Gadavist, dynamic enhanced thin section, volumetric fat saturated T1-weighted coronal images of the abdomen were obtained. Volume rendered 3-D reconstructed images of the abdominal aorta and its branches were obtained. FINDINGS: Comparison is made to patient's ultrasound of the abdomen dated 05/09/2018. Moderate atherosclerotic calcification of the abdominal aorta and its branches is seen. The abdominal aorta tapers normally. A high-grade stenosis which is estimated to be greater than 90 percent is seen involving the origin of the celiac trunk. This measures 5 mm in length. The origin of the superior mesenteric artery is patent. The inferior mesenteric artery is not visualized. Moderate atheromatous plaque formation is seen involving the visualized renal arteries. The origins of both renal arteries are patent. Moderate atheromatous plaque formation is seen involving the common iliac arteries and their branches. A 50 percent stenosis is seen involving the left common iliac artery. This measures 6 mm in length. IMPRESSION: 1. 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 2. 50 % stenosis is seen involving the left common iliac artery. Electronically signed by: Bill Quinones MD (05/11/2018 3:57 PM) [id number]
[2018-05-11] MEDS: LUBIPROSTONE 8 MCG CAPSULE PO SCH (17:29)
--- NOTE | 2018-05-11 17:45 | EEG ---
DATE OF SERVICE: 05/08/2018 ELECTROENCEPHALOGRAM NUMBER: [id number]. OBJECTIVE: This is a 77-year-old female patient with history of seizure. EEG was requested to evaluate seizure activity with history of seizures and cannabinoid use. METHODS: Twenty electrodes were applied according to the international 10/20 electrode placement system. EKG monitoring, hyperventilation, intermittent photic stimulation, monopolar and bipolar montages are routinely utilized. The record was obtained on a digital system with video monitoring. FINDINGS: 1. Background: The patient was recorded in the awake, drowsy and sleep states. The overall background amplitude is 10-20 microvolts. A posterior dominant rhythm of 7-8 Hz is observed. 2. Abnormalities: No specific epileptiform discharge or electrographic seizure is seen. No focal or diffuse slowing. 3. Activation: Hyperventilation was performed with poor efforts. Intermittent photic stimulation was performed with photic driving. No specific epileptiform discharge or electrographic seizure induced by hyperventilation or intermittent photic stimulation. IMPRESSION: This EEG is a mildly abnormal study for the awake, drowsy and sleep states. The posterior dominant rhythm of 7-8 Hz is mildly slow for age. No focal, lateralizing, specific epileptiform discharge or electrographic seizure is seen. JUAN PABLO BARRIOS MD DR: LOI/edie JOB#: [id number] / [id number] AARON
--- NOTE | 2018-05-11 19:07 | PDOC2 ---
CONSULT Date of Consult Date of Consult DATE: 05/11/18 TIME: 18:59 History of Present Illness Reason for Visit: Pleasant 77yo female who presented after questionable seizure activity. Has been having RUQ abdominal pain and severe constipation. She denies any post- prandial abdominal pain now or in past. Daughter states that she has lost approx. 10 lbs over the last 6 months due to lack of appetite. She denies any osmotic type bowel movements or food fear. Past Medical History Cardiovascular: HTN CENTRAL NERVOUS SYSTEM: Seizure GI: GERD Renal/: UTI Endocrine: No pertinent hx Past Surgical History Past Surgical History: Appendectomy, Hysterectomy Family History Family History: Alzheimer's Disease, No Significant Social History Social History: Parent <1 pack per day ALCOHOL: rare Drugs: Marijuana (daily "if I can get it") Current Medications Current Medications Current Medications Pantoprazole Sodium (PROTONIX VIAL for IV PUSH) 40 mg DAILYAC IVP ; Start 05/07 at 16:30; Stop 05/07/18 at 18:45; Status DC Albuterol Sulfate (Ventolin Neb Soln) 2.5 mg PRN Q4HRS PRN NEB SHORTNESS OF BREATH; Start 05/07/18 at 15:45 Albuterol/ Ipratropium (Duoneb) 3 ml RTQID NEB Last administered on 05/10/18at 18:23; Start 05/07/18 at 16:00 Levofloxacin/ Dextrose (Levaquin Per Pharmacy) 1 each PRN DAILY PRN MC SEE COMMENTS; Start 05/07/18 at 16:00 Levofloxacin/ Dextrose 50 ml @ 50 mls/hr Q24H IV Last administered on at 17:42; Start 05/07/18 at 17:00; Stop 05/09/18 at 15:06; Status DC Gadobutrol (Gadavist) 6 mmol 1X ONCE IV Last administered on 05/07/18at 16:43 ; Start 05/07/18 at 16:30; Stop 05/07/18 at 16:34; Status DC Oxycodone/ Acetaminophen (Percocet 5/325) 2 tab PRN Q6HRS PRN PO PAIN MOD TO SEV Last administered on 05/10/18at 22:00; Start 05/07/18 at 17:15 Oxycodone/ Acetaminophen (Percocet 5/325) 1 tab PRN Q4HRS PRN PO PAIN MILD Last administered on 05/11/18 15:18; Start 05/07/18 at 17:15 Aspirin (Jovany Aspirin) 325 mg DAILYWBKFT PO Last administered on 05/08/18 08 :30; Start 05/07/18 at 18:30; Stop 05/10/18 at 14:06; Status DC Famotidine (Pepcid) 20 mg BID PO Last administered on 05/08/18 08:29; Start 05/07/18 at 21:00; Stop 05/08/18 at 11:53; Status DC Furosemide (Lasix) 20 mg DAILY PO Last administered on 05/10/18 09:09; Start 05/07/18 at 19:00 Potassium Chloride (Klor-Con) 10 meq DAILY PO Last administered on 05/11/18 08:09; Start 05/07/18 at 19:00 Ketotifen Fumarate (Zaditor) 1 drop BID OU Last administered on 05/11/18 08: 09; Start 05/07/18 at 21:00 Pantoprazole Sodium (Protonix) 40 mg DAILYAC PO Last administered on 05:07; Start 05/07/18 at 19:00 Amlodipine Besylate (Norvasc) 2.5 mg DAILY PO Last administered on 05/10/18 09:09; Start 05/07/18 at 19:00 Amlodipine Besylate (Norvasc) 2.5 mg 1X ONCE PO ; Start 05/07/18 at 19:00; Stop 05/07/18 at 19:01; Status DC Zolpidem Tartrate (Ambien) 5 mg PRN QHS PRN PO INSOMNIA Last administered on 22:00; Start 05/07/18 at 21:15 Morphine Sulfate (Morphine Sulfate) 4 mg PRN Q2HR PRN IV PAIN Last administered on 05/10/18at 17:33; Start 05/08/18 at 10:30 Docusate Sodium (Colace) 100 mg DAILY PO Last administered on 05/11/18 08:10 ; Start 05/08/18 at 11:00 Senna/Docusate Sodium (Senna Plus) 1 tab DAILY PRN PO CONSTIPATION, 2ND CHOICE Last administered on 10/22/18at 08:09; Start 05/08/18 at 10:30 Polyethylene Glycol (miraLAX PACKET) 17 gm PRN DAILY PRN PO CONSTIPATION, 1ST CHOICE Last administered on 05/08/18at 10:39; Start 05/08/18 at 10:30; Stop at 20:16; Status DC Atorvastatin Calcium (Lipitor) 10 mg QHS PO Last administered on 05/10/18 22: 00; Start 05/08/18 at 21:00 Famotidine (Pepcid) 20 mg DAILY PO ; Start 05/09/18 at 09:00; Stop 05/09/18 at 09:00; Status DC Psyllium Hydrophilic Mucilloid (Metamucil Fiber Packet) 1 pkt DAILY PO Last administered on 05/11/18 08:10; Start 05/08/18 at 13:00 Lactobacillus Rhamnosus (Culturelle) 1 cap BID PO Last administered on 08:09; Start 05/08/18 at 21:00 Lactulose (LACTULOSE 300ML for RECTAL) 200 gm 1X ONCE IA ; Start 05/09/18 at 12:45; Stop 05/09/18 at 12:46; Status UNV Lactulose (Lactulose) 20 gm PRN DAILY PRN PO CONSTIPATION 3RD CHOICE Last administered on 05/11/18 08:10; Start 05/09/18 at 12:45 Simethicone (Gas-X) 80 mg PRN AFTMEALHC PRN PO GAS / BLOATING Last administered on 05/09/18at 14:13; Start 05/09/18 at 12:45 Levofloxacin (Levaquin) 250 mg QHS PO Last administered on 05/10/18at 22:00; Start 05/09/18 at 21:00 Polyethylene Glycol (miraLAX PACKET) 17 gm PRN TID PRN PO CONSTIPATION, 1ST CHOICE Last administered on 05/10/18at 22:00; Start 05/09/18 at 20:30 Mineral Oil (Mineral Oil) 30 ml PRN DAILY PRN PO CONSTIPATION, UNREL BY OTHERS Last administered on 05/10/18at 13:36; Start 05/10/18 at 13:00 Aspirin (Ecotrin) 81 mg DAILYWBKFT PO Last administered on 05/11/18at 08:09; Start 05/10/18 at 14:15 Sucralfate (Carafate) 1 gm PRN BFRMEALHC PRN PO STOMACH PAIN Last administered on 05/10/18at 14:50; Start 05/10/18 at 14:15 Alprazolam (Xanax) 0.25 mg PRN BID PRN PO ANXIETY / AGITATION Last administered on 05/11/18at 08:10; Start 05/10/18 at 18:15 Influenza Virus Vaccine (Afluria Trivalent [id number] Syringe) 0.5 ml ONCE ONCE VAX IM Last administered on 05/11/18at 17:29; Start 05/11/18 at 10:30; Stop 05/11/18 at 10:31; Status DC Lubiprostone (Amitiza) 8 mcg BIDWMEALS PO Last administered on 05/11/18at 17:29 ; Start 05/11/18 at 17:00 Gadobutrol (Gadavist) 7.5 mmol 1X ONCE IV Last administered on 05/11/18at 14: 50; Start 05/11/18 at 14:30; Stop 05/11/18 at 14:31; Status DC Active Scripts Active Pepcid (Famotidine) 20 Mg Tablet 20 Mg PO BID Levsin-Sl (Hyoscyamine Sulfate) 0.125 Mg Tab.subl 1-2 Tab SL PRN Q4HRS PRN Reported Protonix (Pantoprazole Sodium) 20 Mg Tablet.dr 2 Tab PO DAILY Amlodipine Besylate 5 Mg Tablet 5 Mg PO DAILY Patanol (Olopatadine Hcl) 5 Ml Drops 1 Drop EACHEYE BID Lasix (Furosemide) 20 Mg Tablet 1 Tab PO DAILY Klor-Con 10 (Potassium Chloride) 10 Meq Tablet.er 1 Tab PO DAILY Amitiza (Lubiprostone) 8 Mcg Capsule 1 Cap PO BID Toprol Xl (Metoprolol Succinate) 50 Mg Tab.er.24h 1 Tab PO DAILY Allergies Allergies: Coded Allergies: lisinopril (Verified Allergy, Severe, throat closing, 04/03/18) Iodine and Iodide Containing Produc (Verified Allergy, Intermediate, 05/08) Penicillins (Verified Allergy, Intermediate, Rash, 04/03/18) ROS Gastrointestinal: Yes Constipation Physical Exam General: Alert, Oriented X3, Cooperative, No acute distress HEENT: Atraumatic, PERRLA, EOMI Lungs: Clear to auscultation, Normal air movement Heart: Regular rate, Normal S1, Normal S2 Abdomen: Normal bowel sounds, Soft, No tenderness, No masses Extremities: No clubbing, No cyanosis, No edema, Normal pulses, No tenderness/ swelling Skin: No rashes, No significant lesion Neuro: Normal speech, Strength at 5/5 X4 ext, Normal tone, Sensation intact, Cranial nerves 3-12 NL Psych/Mental Status: Mental status NL, Mood NL MUSCULOSKELETAL: No deformity, No swelling Vitals VITALS Vital Signs Date Time Temp Pulse Resp B/P (MAP) Pulse Ox O2 Delivery O2 Flow Rate FiO2 05/11/18 17:27 Nasal Cannula 2.0 05/11/18 15:18 94 05/11/18 15:00 99.2 120 18 137/71 (93) 99.2 Labs Labs Laboratory Tests Test 05/11/18 07:15 White Blood Count 9.8 x10^3/uL (4.0-11.0) Red Blood Count 4.10 x10^6/uL (3.50-5.40) Hemoglobin 12.5 g/dL (12.0-15.5) Hematocrit 36.5 % (36.0-47.0) Mean Corpuscular Volume 89 fL (79-100) Mean Corpuscular Hemoglobin 30 pg (25-35) Mean Corpuscular Hemoglobin Concent 34 g/dL (31-37) Red Cell Distribution Width 13.6 % (11.5-14.5) Platelet Count 237 x10^3/uL (140-400) Neutrophils (%) (Auto) 86 % (31-73) Lymphocytes (%) (Auto) 4 % (24-48) Monocytes (%) (Auto) 8 % (0-9) Eosinophils (%) (Auto) 1 % (0-3) Basophils (%) (Auto) 1 % (0-3) Neutrophils # (Auto) 8.4 x10^3uL (1.8-7.7) Lymphocytes # (Auto) 0.4 x10^3/uL (1.0-4.8) Monocytes # (Auto) 0.8 x10^3/uL (0.0-1.1) Eosinophils # (Auto) 0.1 x10^3/uL (0.0-0.7) Basophils # (Auto) 0.1 x10^3/uL (0.0-0.2) Segmented Neutrophils % 86 % (35-66) Band Neutrophils % 2 % (0-9) Lymphocytes % 4 % (24-48) Monocytes % 7 % (0-10) Eosinophils % 1 % (0-5) Platelet Estimate Adequate (ADEQUATE) Sodium Level 136 mmol/L (136-145) Potassium Level 4.1 mmol/L (3.5-5.1) Chloride Level 99 mmol/L (98-107) Carbon Dioxide Level 30 mmol/L (21-32) Anion Gap 7 (6-14) Blood Urea Nitrogen 8 mg/dL (7-20) Creatinine 0.9 mg/dL (0.6-1.0) Estimated GFR (Cockcroft-Gault) 73.1 BUN/Creatinine Ratio 9 (6-20) Glucose Level 104 mg/dL (70-99) Calcium Level 9.2 mg/dL (8.5-10.1) Total Bilirubin 0.4 mg/dL (0.2-1.0) Aspartate Amino Transf (AST/SGOT) 16 U/L (15-37) Alanine Aminotransferase (ALT/SGPT) 12 U/L (14-59) Alkaline Phosphatase 88 U/L (46-116) Total Protein 7.2 g/dL (6.4-8.2) Albumin 2.6 g/dL (3.4-5.0) Albumin/Globulin Ratio 0.6 (1.0-1.7) Laboratory Tests Test 05/11/18 07:15 White Blood Count 9.8 x10^3/uL (4.0-11.0) Red Blood Count 4.10 x10^6/uL (3.50-5.40) Hemoglobin 12.5 g/dL (12.0-15.5) Hematocrit 36.5 % (36.0-47.0) Mean Corpuscular Volume 89 fL (79-100) Mean Corpuscular Hemoglobin 30 pg (25-35) Mean Corpuscular Hemoglobin Concent 34 g/dL (31-37) Red Cell Distribution Width 13.6 % (11.5-14.5) Platelet Count 237 x10^3/uL (140-400) Neutrophils (%) (Auto) 86 % (31-73) Lymphocytes (%) (Auto) 4 % (24-48) Monocytes (%) (Auto) 8 % (0-9) Eosinophils (%) (Auto) 1 % (0-3) Basophils (%) (Auto) 1 % (0-3) Neutrophils # (Auto) 8.4 x10^3uL (1.8-7.7) Lymphocytes # (Auto) 0.4 x10^3/uL (1.0-4.8) Monocytes # (Auto) 0.8 x10^3/uL (0.0-1.1) Eosinophils # (Auto) 0.1 x10^3/uL (0.0-0.7) Basophils # (Auto) 0.1 x10^3/uL (0.0-0.2) Segmented Neutrophils % 86 % (35-66) Band Neutrophils % 2 % (0-9) Lymphocytes % 4 % (24-48) Monocytes % 7 % (0-10) Eosinophils % 1 % (0-5) Platelet Estimate Adequate (ADEQUATE) Sodium Level 136 mmol/L (136-145) Potassium Level 4.1 mmol/L (3.5-5.1) Chloride Level 99 mmol/L (98-107) Carbon Dioxide Level 30 mmol/L (21-32) Anion Gap 7 (6-14) Blood Urea Nitrogen 8 mg/dL (7-20) Creatinine 0.9 mg/dL (0.6-1.0) Estimated GFR (Cockcroft-Gault) 73.1 BUN/Creatinine Ratio 9 (6-20) Glucose Level 104 mg/dL (70-99) Calcium Level 9.2 mg/dL (8.5-10.1) Total Bilirubin 0.4 mg/dL (0.2-1.0) Aspartate Amino Transf (AST/SGOT) 16 U/L (15-37) Alanine Aminotransferase (ALT/SGPT) 12 U/L (14-59) Alkaline Phosphatase 88 U/L (46-116) Total Protein 7.2 g/dL (6.4-8.2) Albumin 2.6 g/dL (3.4-5.0) Albumin/Globulin Ratio 0.6 (1.0-1.7) Assessment/Plan Assessment/Plan Abdominal pain--I suspect her pain is secondary to constipation. Reviewed MRA of mesenteric vessels. MRA is very poor study for large vessels and should not be ordered. It tends to overestimate blockage and disease. Will order CTA or ABD/pelvis to evaluate mesenteric vessels. The patients story does not match someone having mesenteric insufficiency. All questions answered. Will f/u with testing. Dottie Watkins DO, DOTTIE FERNÁNDEZ DO May 11, 2018 19:07
[2018-05-11] MEDS: ATORVASTATIN CALCIUM 10 MG TABLET. PO SCH (20:37)
[2018-05-11] MEDS: ZOLPIDEM 5 MG TABLET. PO PRN (20:42)
[2018-05-12] MEDS: oxyCODONE/APAP 5/325 1 TAB TABLET PO PRN (01:24)
[2018-05-12 03:01] VITALS: BP 127/68
[2018-05-12 05:47] LABS: BASO % 0 % (0-3); EOS # 0.3 x10^3/uL (0.0-0.7); EOS % 3 % (0-3); HEMATOCRIT 36.4 % (36.0-47.0); HEMOGLOBIN 12.4 g/dL (12.0-15.5); LYMPH # 0.6 x10^3/uL (1.0-4.8); LYMPH % 6 % (24-48); MEAN CORPUSCULAR HEMOGLOBIN 30 pg (25-35); MEAN CORPUSCULAR HGB CONC 34 g/dL (31-37); MEAN CORPUSCULAR VOLUME 89 fL (79-100); MONO # 0.7 x10^3/uL (0.0-1.1); MONO % 8 % (0-9); NEUT # 7.2 x10^3uL (1.8-7.7); NEUT % 83 % (31-73); PLATELET COUNT 279 x10^3/uL (140-400); RED BLOOD COUNT 4.07 x10^6/uL (3.50-5.40); WHITE BLOOD COUNT 8.8 x10^3/uL (4.0-11.0)
[2018-05-12 06:05] LABS: ALBUMIN 2.7 g/dL (3.4-5.0); ALBUMIN/GLOBULIN RATIO 0.6 (1.0-1.7); CALCIUM 9.1 mg/dL (8.5-10.1); CREATININE 0.8 mg/dL (0.6-1.0); GFR 83.7; POTASSIUM 4.6 mmol/L (3.5-5.1); TOTAL BILIRUBIN 0.4 mg/dL (0.2-1.0); TOTAL PROTEIN 7.5 g/dL (6.4-8.2)
[2018-05-12] MEDS: PANTOPRAZOLE 40 MG TABLET.DR. PO SCH (06:16)
[2018-05-12 07:00] VITALS: BP 141/68
[2018-05-12] MEDS: IPRATRPIUM/ALBUTEROL 0.5/2.5MG 3 ML NEBU. NEB SCH ×4 (08:20→20:00)
[2018-05-12] MEDS: DOCUSATE SODIUM 100 MG CAPSULE. PO SCH (08:47)
[2018-05-12] MEDS: POTASSIUM CHLORIDE 10 MEQ TABLET.ER. PO SCH (08:47)
[2018-05-12] MEDS: LUBIPROSTONE 8 MCG CAPSULE PO SCH ×2 (08:47→18:13)
[2018-05-12] MEDS: LACTOBACILLUS RHAMNOSUS GG 1 CAPSULE. PO SCH ×2 (08:47→20:57)
[2018-05-12] MEDS: FUROSEMIDE 20 MG TABLET PO SCH (08:47)
[2018-05-12] MEDS: SUCRALFATE 1 GM TABLET. PO PRN (08:47)
[2018-05-12] MEDS: SENNOSIDES/DOCUSATE 8.6/50MG TABLET. PO PRN (08:47)
[2018-05-12] MEDS: KETOTIFEN FUMARATE 0.025% OPHTH SOLUTION BOTTLE. OU SCH ×2 (08:47→20:57)
[2018-05-12] MEDS: amLODIPine BESYLATE 2.5 MG TABLET PO SCH (08:48)
[2018-05-12] MEDS: ASPIRIN ENTERIC COATED 81 MG TABLET.DR. PO SCH (08:48)
[2018-05-12] MEDS: PSYLLIUM HUSK (SUGAR FREE) 1 PKT PACKET PO SCH (08:48)
--- NOTE | 2018-05-12 09:28 | PDOC ---
SURGICAL PROGRESS NOTE Subjective She continues to have significant abdominal discomfort. No nausea or emesis. Vital Signs Vital Signs Date Time Temp Pulse Resp B/P (MAP) Pulse Ox O2 Delivery O2 Flow Rate FiO2 05/12/18 08:48 110 141/68 05/12/18 08:20 94 Room Air 05/12/18 07:00 98.3 18 98.3 05/12/18 03:02 2.0 I&O Intake and Output 05/12/18 07:00 Intake Total 840 ml Balance 840 ml Intake Oral 840 ml # Voids 9 # Bowel Movements 6 General: Alert, No acute distress Lungs: Normal air movement Heart: Regular rate Abdomen: Soft, Other (diffuse discomfort) Extremities: No edema Labs reviewed Assessment/Plan Abdominal pain unchanged MRI showed celiac stenosis, but I doubt that this is the cause of her abdominal pain Seizure disorder CTA Abd/pelvis ordered to get better assessment of mesenteric vasculature. Will f/u CTA when complete. Would continue with bowel regimen. IMELDA OTTO MD May 12, 2018 09:28
--- NOTE | 2018-05-12 09:37 | PDOC ---
PROGRESS NOTES Chief Complaint Chief Complaint Seizures CVA Metabolic encephalopathy Acute abdominal pain w/constipation UTI H/o HTN H/o anxiety disorder H/o chronic pain H/o THC and tobacco use History of Present Illness History of Present Illness Pt seen and examined Pt sitting upright in bed Discussed with RN Vitals Vitals Vital Signs Date Time Temp Pulse Resp B/P (MAP) Pulse Ox O2 Delivery O2 Flow Rate FiO2 05/12/18 08:48 110 141/68 05/12/18 08:20 94 Room Air 05/12/18 07:00 98.3 18 98.3 05/12/18 03:02 2.0 Physical Exam General: Alert, Oriented X3, Cooperative, No acute distress Heart: Regular rate, Normal S1, Normal S2 Lungs: Wheezing, Crackles, Other (coarse lung sounds b/l) Abdomen: Normal bowel sounds, Soft, No masses, Other (mild tenderness) Extremities: No clubbing, No cyanosis, No edema, Normal pulses, No tenderness/ swelling Skin: No rashes, No significant lesion Labs LABS Laboratory Tests Test 05/11/18 13:35 05/12/18 05:10 Clostridium difficile Toxin (PCR) Negative (Negative) White Blood Count 8.8 x10^3/uL (4.0-11.0) Red Blood Count 4.07 x10^6/uL (3.50-5.40) Hemoglobin 12.4 g/dL (12.0-15.5) Hematocrit 36.4 % (36.0-47.0) Mean Corpuscular Volume 89 fL (79-100) Mean Corpuscular Hemoglobin 30 pg (25-35) Mean Corpuscular Hemoglobin Concent 34 g/dL (31-37) Red Cell Distribution Width 14.0 % (11.5-14.5) Platelet Count 279 x10^3/uL (140-400) Neutrophils (%) (Auto) 83 % (31-73) Lymphocytes (%) (Auto) 6 % (24-48) Monocytes (%) (Auto) 8 % (0-9) Eosinophils (%) (Auto) 3 % (0-3) Basophils (%) (Auto) 0 % (0-3) Neutrophils # (Auto) 7.2 x10^3uL (1.8-7.7) Lymphocytes # (Auto) 0.6 x10^3/uL (1.0-4.8) Monocytes # (Auto) 0.7 x10^3/uL (0.0-1.1) Eosinophils # (Auto) 0.3 x10^3/uL (0.0-0.7) Basophils # (Auto) 0.0 x10^3/uL (0.0-0.2) Sodium Level 137 mmol/L (136-145) Potassium Level 4.6 mmol/L (3.5-5.1) Chloride Level 100 mmol/L (98-107) Carbon Dioxide Level 30 mmol/L (21-32) Anion Gap 7 (6-14) Blood Urea Nitrogen 12 mg/dL (7-20) Creatinine 0.8 mg/dL (0.6-1.0) Estimated GFR (Cockcroft-Gault) 83.7 BUN/Creatinine Ratio 15 (6-20) Glucose Level 119 mg/dL (70-99) Calcium Level 9.1 mg/dL (8.5-10.1) Total Bilirubin 0.4 mg/dL (0.2-1.0) Aspartate Amino Transf (AST/SGOT) 19 U/L (15-37) Alanine Aminotransferase (ALT/SGPT) 13 U/L (14-59) Alkaline Phosphatase 103 U/L (46-116) Total Protein 7.5 g/dL (6.4-8.2) Albumin 2.7 g/dL (3.4-5.0) Albumin/Globulin Ratio 0.6 (1.0-1.7) Review of Systems Review of Systems C/o weakness, fatigue, stomach cramping, constipation and cough productive of mucus Denies chest pain or SOB Assessment and Plan Assessmemt and Plan Assessment: Seizures CVA Metabolic encephalopathy Acute abdominal pain w/constipation UTI H/o HTN H/o anxiety disorder H/o chronic pain H/o THC and tobacco use Plan: CXR, aspiration pneumonia? Consult pulm, Dr. Zamora re possible aspiration pneumonia CTA scheduled per vascular Cont PT/OT ST Labs PRN narcotics Bowel hygiene Cont breathing treatments Cont levaquin for UTI Home meds DVT ppx Comment Review of Relevant I have reviewed the following items jamila (where applicable) has been applied. Labs Laboratory Tests Test 05/11/18 07:15 05/11/18 13:35 05/12/18 05:10 White Blood Count 9.8 x10^3/uL (4.0-11.0) 8.8 x10^3/uL (4.0-11.0) Red Blood Count 4.10 x10^6/uL (3.50-5.40) 4.07 x10^6/uL (3.50-5.40) Hemoglobin 12.5 g/dL (12.0-15.5) 12.4 g/dL (12.0-15.5) Hematocrit 36.5 % (36.0-47.0) 36.4 % (36.0-47.0) Mean Corpuscular Volume 89 fL (79-100) 89 fL (79-100) Mean Corpuscular Hemoglobin 30 pg (25-35) 30 pg (25-35) Mean Corpuscular Hemoglobin Concent 34 g/dL (31-37) 34 g/dL (31-37) Red Cell Distribution Width 13.6 % (11.5-14.5) 14.0 % (11.5-14.5) Platelet Count 237 x10^3/uL (140-400) 279 x10^3/uL (140-400) Neutrophils (%) (Auto) 86 % (31-73) 83 % (31-73) Lymphocytes (%) (Auto) 4 % (24-48) 6 % (24-48) Monocytes (%) (Auto) 8 % (0-9) 8 % (0-9) Eosinophils (%) (Auto) 1 % (0-3) 3 % (0-3) Basophils (%) (Auto) 1 % (0-3) 0 % (0-3) Neutrophils # (Auto) 8.4 x10^3uL (1.8-7.7) 7.2 x10^3uL (1.8-7.7) Lymphocytes # (Auto) 0.4 x10^3/uL (1.0-4.8) 0.6 x10^3/uL (1.0-4.8) Monocytes # (Auto) 0.8 x10^3/uL (0.0-1.1) 0.7 x10^3/uL (0.0-1.1) Eosinophils # (Auto) 0.1 x10^3/uL (0.0-0.7) 0.3 x10^3/uL (0.0-0.7) Basophils # (Auto) 0.1 x10^3/uL (0.0-0.2) 0.0 x10^3/uL (0.0-0.2) Segmented Neutrophils % 86 % (35-66) Band Neutrophils % 2 % (0-9) Lymphocytes % 4 % (24-48) Monocytes % 7 % (0-10) Eosinophils % 1 % (0-5) Platelet Estimate Adequate (ADEQUATE) Sodium Level 136 mmol/L (136-145) 137 mmol/L (136-145) Potassium Level 4.1 mmol/L (3.5-5.1) 4.6 mmol/L (3.5-5.1) Chloride Level 99 mmol/L (98-107) 100 mmol/L (98-107) Carbon Dioxide Level 30 mmol/L (21-32) 30 mmol/L (21-32) Anion Gap 7 (6-14) 7 (6-14) Blood Urea Nitrogen 8 mg/dL (7-20) 12 mg/dL (7-20) Creatinine 0.9 mg/dL (0.6-1.0) 0.8 mg/dL (0.6-1.0) Estimated GFR (Cockcroft-Gault) 73.1 83.7 BUN/Creatinine Ratio 9 (6-20) 15 (6-20) Glucose Level 104 mg/dL (70-99) 119 mg/dL (70-99) Calcium Level 9.2 mg/dL (8.5-10.1) 9.1 mg/dL (8.5-10.1) Total Bilirubin 0.4 mg/dL (0.2-1.0) 0.4 mg/dL (0.2-1.0) Aspartate Amino Transf (AST/SGOT) 16 U/L (15-37) 19 U/L (15-37) Alanine Aminotransferase (ALT/SGPT) 12 U/L (14-59) 13 U/L (14-59) Alkaline Phosphatase 88 U/L (46-116) 103 U/L (46-116) Total Protein 7.2 g/dL (6.4-8.2) 7.5 g/dL (6.4-8.2) Albumin 2.6 g/dL (3.4-5.0) 2.7 g/dL (3.4-5.0) Albumin/Globulin Ratio 0.6 (1.0-1.7) 0.6 (1.0-1.7) Clostridium difficile Toxin (PCR) Negative (Negative) Laboratory Tests Test 05/11/18 13:35 05/12/18 05:10 Clostridium difficile Toxin (PCR) Negative (Negative) White Blood Count 8.8 x10^3/uL (4.0-11.0) Red Blood Count 4.07 x10^6/uL (3.50-5.40) Hemoglobin 12.4 g/dL (12.0-15.5) Hematocrit 36.4 % (36.0-47.0) Mean Corpuscular Volume 89 fL (79-100) Mean Corpuscular Hemoglobin 30 pg (25-35) Mean Corpuscular Hemoglobin Concent 34 g/dL (31-37) Red Cell Distribution Width 14.0 % (11.5-14.5) Platelet Count 279 x10^3/uL (140-400) Neutrophils (%) (Auto) 83 % (31-73) Lymphocytes (%) (Auto) 6 % (24-48) Monocytes (%) (Auto) 8 % (0-9) Eosinophils (%) (Auto) 3 % (0-3) Basophils (%) (Auto) 0 % (0-3) Neutrophils # (Auto) 7.2 x10^3uL (1.8-7.7) Lymphocytes # (Auto) 0.6 x10^3/uL (1.0-4.8) Monocytes # (Auto) 0.7 x10^3/uL (0.0-1.1) Eosinophils # (Auto) 0.3 x10^3/uL (0.0-0.7) Basophils # (Auto) 0.0 x10^3/uL (0.0-0.2) Sodium Level 137 mmol/L (136-145) Potassium Level 4.6 mmol/L (3.5-5.1) Chloride Level 100 mmol/L (98-107) Carbon Dioxide Level 30 mmol/L (21-32) Anion Gap 7 (6-14) Blood Urea Nitrogen 12 mg/dL (7-20) Creatinine 0.8 mg/dL (0.6-1.0) Estimated GFR (Cockcroft-Gault) 83.7 BUN/Creatinine Ratio 15 (6-20) Glucose Level 119 mg/dL (70-99) Calcium Level 9.1 mg/dL (8.5-10.1) Total Bilirubin 0.4 mg/dL (0.2-1.0) Aspartate Amino Transf (AST/SGOT) 19 U/L (15-37) Alanine Aminotransferase (ALT/SGPT) 13 U/L (14-59) Alkaline Phosphatase 103 U/L (46-116) Total Protein 7.5 g/dL (6.4-8.2) Albumin 2.7 g/dL (3.4-5.0) Albumin/Globulin Ratio 0.6 (1.0-1.7) Microbiology 05/11/18 Fecal Leukocyte Stain - Final, Complete 05/08/18 Urine Culture - Final, Complete 05/08/18 Urine Culture Result 1 (CARLIE) - Final, Complete Medications Current Medications Pantoprazole Sodium (PROTONIX VIAL for IV PUSH) 40 mg DAILYAC IVP ; Start 05/07 at 16:30; Stop 05/07/18 at 18:45; Status DC Albuterol Sulfate (Ventolin Neb Soln) 2.5 mg PRN Q4HRS PRN NEB SHORTNESS OF BREATH; Start 05/07/18 at 15:45 Albuterol/ Ipratropium (Duoneb) 3 ml RTQID NEB Last administered on 05/12/18at 08:20; Start 05/07/18 at 16:00 Levofloxacin/ Dextrose (Levaquin Per Pharmacy) 1 each PRN DAILY PRN MC SEE COMMENTS; Start 05/07/18 at 16:00 Levofloxacin/ Dextrose 50 ml @ 50 mls/hr Q24H IV Last administered on at 17:42; Start 05/07/18 at 17:00; Stop 05/09/18 at 15:06; Status DC Gadobutrol (Gadavist) 6 mmol 1X ONCE IV Last administered on 05/07/18at 16:43 ; Start 05/07/18 at 16:30; Stop 05/07/18 at 16:34; Status DC Oxycodone/ Acetaminophen (Percocet 5/325) 2 tab PRN Q6HRS PRN PO PAIN MOD TO SEV Last administered on 05/10/18 22:00; Start 05/07/18 at 17:15 Oxycodone/ Acetaminophen (Percocet 5/325) 1 tab PRN Q4HRS PRN PO PAIN MILD Last administered on 05/12/18 01:24; Start 05/07/18 at 17:15 Aspirin (Jovany Aspirin) 325 mg DAILYWBKFT PO Last administered on 05/08/18 08 :30; Start 05/07/18 at 18:30; Stop 05/10/18 at 14:06; Status DC Famotidine (Pepcid) 20 mg BID PO Last administered on 05/08/18 08:29; Start 05/07/18 at 21:00; Stop 05/08/18 at 11:53; Status DC Furosemide (Lasix) 20 mg DAILY PO Last administered on 05/12/18 08:47; Start 05/07/18 at 19:00 Potassium Chloride (Klor-Con) 10 meq DAILY PO Last administered on 05/12/18 08:47; Start 05/07/18 at 19:00 Ketotifen Fumarate (Zaditor) 1 drop BID OU Last administered on 05/12/18 08: 47; Start 05/07/18 at 21:00 Pantoprazole Sodium (Protonix) 40 mg DAILYAC PO Last administered on 06:16; Start 05/07/18 at 19:00 Amlodipine Besylate (Norvasc) 2.5 mg DAILY PO Last administered on 05/12/18 08:48; Start 05/07/18 at 19:00 Amlodipine Besylate (Norvasc) 2.5 mg 1X ONCE PO ; Start 05/07/18 at 19:00; Stop 05/07/18 at 19:01; Status DC Zolpidem Tartrate (Ambien) 5 mg PRN QHS PRN PO INSOMNIA Last administered on 20:42; Start 05/07/18 at 21:15 Morphine Sulfate (Morphine Sulfate) 4 mg PRN Q2HR PRN IV PAIN Last administered on 05/10/18 17:33; Start 05/08/18 at 10:30 Docusate Sodium (Colace) 100 mg DAILY PO Last administered on 05/12/18 08:47 ; Start 05/08/18 at 11:00 Senna/Docusate Sodium (Senna Plus) 1 tab DAILY PRN PO CONSTIPATION, 2ND CHOICE Last administered on 05/12/18 08:47; Start 05/08/18 at 10:30 Polyethylene Glycol (miraLAX PACKET) 17 gm PRN DAILY PRN PO CONSTIPATION, 1ST CHOICE Last administered on 05/08/18 10:39; Start 05/08/18 at 10:30; Stop at 20:16; Status DC Atorvastatin Calcium (Lipitor) 10 mg QHS PO Last administered on 05/11/18 20: 37; Start 05/08/18 at 21:00 Famotidine (Pepcid) 20 mg DAILY PO ; Start 05/09/18 at 09:00; Stop 05/09/18 at 09:00; Status DC Psyllium Hydrophilic Mucilloid (Metamucil Fiber Packet) 1 pkt DAILY PO Last administered on 05/12/18 08:48; Start 05/08/18 at 13:00 Lactobacillus Rhamnosus (Culturelle) 1 cap BID PO Last administered on 08:47; Start 05/08/18 at 21:00 Lactulose (LACTULOSE 300ML for RECTAL) 200 gm 1X ONCE RI ; Start 05/09/18 at 12:45; Stop 05/09/18 at 12:46; Status UNV Lactulose (Lactulose) 20 gm PRN DAILY PRN PO CONSTIPATION 3RD CHOICE Last administered on 05/11/18 08:10; Start 05/09/18 at 12:45 Simethicone (Gas-X) 80 mg PRN AFTMEALHC PRN PO GAS / BLOATING Last administered on 05/09/18at 14:13; Start 05/09/18 at 12:45 Levofloxacin (Levaquin) 250 mg QHS PO Last administered on 05/11/18 20:37; Start 05/09/18 at 21:00 Polyethylene Glycol (miraLAX PACKET) 17 gm PRN TID PRN PO CONSTIPATION, 1ST CHOICE Last administered on 05/10/18 22:00; Start 05/09/18 at 20:30 Mineral Oil (Mineral Oil) 30 ml PRN DAILY PRN PO CONSTIPATION, UNREL BY OTHERS Last administered on 10/21/18at 13:36; Start 05/10/18 at 13:00 Aspirin (Ecotrin) 81 mg DAILYWBKFT PO Last administered on 05/12/18at 08:48; Start 05/10/18 at 14:15 Sucralfate (Carafate) 1 gm PRN BFRMEALHC PRN PO STOMACH PAIN Last administered on 05/12/18at 08:47; Start 05/10/18 at 14:15 Alprazolam (Xanax) 0.25 mg PRN BID PRN PO ANXIETY / AGITATION Last administered on 05/11/18at 08:10; Start 05/10/18 at 18:15 Influenza Virus Vaccine (Afluria Trivalent [id number] Syringe) 0.5 ml ONCE ONCE VAX IM Last administered on 05/11/18at 17:29; Start 05/11/18 at 10:30; Stop 05/11/18 at 10:31; Status DC Lubiprostone (Amitiza) 8 mcg BIDWMEALS PO Last administered on 05/12/18at 08:47 ; Start 05/11/18 at 17:00 Gadobutrol (Gadavist) 7.5 mmol 1X ONCE IV Last administered on 05/11/18at 14: 50; Start 05/11/18 at 14:30; Stop 05/11/18 at 14:31; Status DC Prednisone (Prednisone) 20 mg 1X ONCE PO ; Start 05/12/18 at 18:00; Stop at 18:01 Prednisone (Prednisone) 20 mg 1X ONCE PO ; Start 05/13/18 at 00:00; Stop at 00:01 Prednisone (Prednisone) 20 mg 1X ONCE PO ; Start 05/13/18 at 06:00; Stop at 06:01 Diphenhydramine HCl (Benadryl) 50 mg 1X ONCE PO ; Start 05/13/18 at 07:00; Stop 05/13/18 at 07:01 Active Scripts Active Pepcid (Famotidine) 20 Mg Tablet 20 Mg PO BID Levsin-Sl (Hyoscyamine Sulfate) 0.125 Mg Tab.subl 1-2 Tab SL PRN Q4HRS PRN Reported Protonix (Pantoprazole Sodium) 20 Mg Tablet.dr 2 Tab PO DAILY Amlodipine Besylate 5 Mg Tablet 5 Mg PO DAILY Patanol (Olopatadine Hcl) 5 Ml Drops 1 Drop EACHEYE BID Lasix (Furosemide) 20 Mg Tablet 1 Tab PO DAILY Klor-Con 10 (Potassium Chloride) 10 Meq Tablet.er 1 Tab PO DAILY Amitiza (Lubiprostone) 8 Mcg Capsule 1 Cap PO BID Toprol Xl (Metoprolol Succinate) 50 Mg Tab.er.24h 1 Tab PO DAILY Vitals/I & O Vital Sign - Last 24 Hours 05/11/18 05/11/18 05/11/18 05/11/18 11:00 15:00 15:18 19:00 Temp 97.4 99.2 98.7 97.4 99.2 98.7 Pulse 113 120 101 Resp 20 18 18 B/P (MAP) 112/82 (92) 137/71 (93) 116/54 (74) Pulse Ox 94 96 94 97 O2 Delivery Room Air Nasal Cannula Nasal Cannula Nasal Cannula O2 Flow Rate 2.0 2.0 2.0 05/11/18 05/11/18 05/11/18 05/11/18 20:22 20:38 20:40 23:00 Temp 99.6 99.6 Pulse 83 Resp 20 18 B/P (MAP) 143/69 (93) Pulse Ox 94 94 95 O2 Delivery Room Air Nasal Cannula Nasal Cannula Nasal Cannula O2 Flow Rate 2.0 2.0 2.0 05/12/18 05/12/18 05/12/18 05/12/18 01:24 02:25 03:01 03:02 Temp 99.6 99.6 Pulse 102 Resp 20 18 18 18 B/P (MAP) 127/68 (87) Pulse Ox 95 94 88 94 O2 Delivery Room Air Nasal Cannula Room Air Nasal Cannula O2 Flow Rate 2.0 2.0 05/12/18 05/12/18 05/12/18 07:00 08:20 08:48 Temp 98.3 98.3 Pulse 110 110 Resp 18 B/P (MAP) 141/68 (92) 141/68 Pulse Ox 94 94 O2 Delivery Room Air Room Air Intake and Output 05/11/18 05/11/18 05/12/18 15:00 23:00 07:00 Intake Total 180 ml 420 ml 240 ml Balance 180 ml 420 ml 240 ml GLORIA MUELLER III DO May 12, 2018 09:37
[2018-05-12 11:00] VITALS: BP 124/74
--- NOTE | 2018-05-12 13:54 | PDOC ---
G I PROGRESS NOTE Subjective Maybe less pain, marginally so. Eating a little better. Bowels moved "a little ". Objective Vascular consult reviewed and appreciated. Physical Exam Lungs clear. RRR Abdomen soft, not distended. Generalized mild tenderness. Review of Relevant I have reviewed the following items jamila (where applicable) has been applied. Labs Laboratory Tests Test 05/11/18 07:15 05/11/18 13:35 05/12/18 05:10 White Blood Count 9.8 x10^3/uL (4.0-11.0) 8.8 x10^3/uL (4.0-11.0) Red Blood Count 4.10 x10^6/uL (3.50-5.40) 4.07 x10^6/uL (3.50-5.40) Hemoglobin 12.5 g/dL (12.0-15.5) 12.4 g/dL (12.0-15.5) Hematocrit 36.5 % (36.0-47.0) 36.4 % (36.0-47.0) Mean Corpuscular Volume 89 fL (79-100) 89 fL (79-100) Mean Corpuscular Hemoglobin 30 pg (25-35) 30 pg (25-35) Mean Corpuscular Hemoglobin Concent 34 g/dL (31-37) 34 g/dL (31-37) Red Cell Distribution Width 13.6 % (11.5-14.5) 14.0 % (11.5-14.5) Platelet Count 237 x10^3/uL (140-400) 279 x10^3/uL (140-400) Neutrophils (%) (Auto) 86 % (31-73) 83 % (31-73) Lymphocytes (%) (Auto) 4 % (24-48) 6 % (24-48) Monocytes (%) (Auto) 8 % (0-9) 8 % (0-9) Eosinophils (%) (Auto) 1 % (0-3) 3 % (0-3) Basophils (%) (Auto) 1 % (0-3) 0 % (0-3) Neutrophils # (Auto) 8.4 x10^3uL (1.8-7.7) 7.2 x10^3uL (1.8-7.7) Lymphocytes # (Auto) 0.4 x10^3/uL (1.0-4.8) 0.6 x10^3/uL (1.0-4.8) Monocytes # (Auto) 0.8 x10^3/uL (0.0-1.1) 0.7 x10^3/uL (0.0-1.1) Eosinophils # (Auto) 0.1 x10^3/uL (0.0-0.7) 0.3 x10^3/uL (0.0-0.7) Basophils # (Auto) 0.1 x10^3/uL (0.0-0.2) 0.0 x10^3/uL (0.0-0.2) Segmented Neutrophils % 86 % (35-66) Band Neutrophils % 2 % (0-9) Lymphocytes % 4 % (24-48) Monocytes % 7 % (0-10) Eosinophils % 1 % (0-5) Platelet Estimate Adequate (ADEQUATE) Sodium Level 136 mmol/L (136-145) 137 mmol/L (136-145) Potassium Level 4.1 mmol/L (3.5-5.1) 4.6 mmol/L (3.5-5.1) Chloride Level 99 mmol/L (98-107) 100 mmol/L (98-107) Carbon Dioxide Level 30 mmol/L (21-32) 30 mmol/L (21-32) Anion Gap 7 (6-14) 7 (6-14) Blood Urea Nitrogen 8 mg/dL (7-20) 12 mg/dL (7-20) Creatinine 0.9 mg/dL (0.6-1.0) 0.8 mg/dL (0.6-1.0) Estimated GFR (Cockcroft-Gault) 73.1 83.7 BUN/Creatinine Ratio 9 (6-20) 15 (6-20) Glucose Level 104 mg/dL (70-99) 119 mg/dL (70-99) Calcium Level 9.2 mg/dL (8.5-10.1) 9.1 mg/dL (8.5-10.1) Total Bilirubin 0.4 mg/dL (0.2-1.0) 0.4 mg/dL (0.2-1.0) Aspartate Amino Transf (AST/SGOT) 16 U/L (15-37) 19 U/L (15-37) Alanine Aminotransferase (ALT/SGPT) 12 U/L (14-59) 13 U/L (14-59) Alkaline Phosphatase 88 U/L (46-116) 103 U/L (46-116) Total Protein 7.2 g/dL (6.4-8.2) 7.5 g/dL (6.4-8.2) Albumin 2.6 g/dL (3.4-5.0) 2.7 g/dL (3.4-5.0) Albumin/Globulin Ratio 0.6 (1.0-1.7) 0.6 (1.0-1.7) Clostridium difficile Toxin (PCR) Negative (Negative) Laboratory Tests Test 05/12/18 05:10 White Blood Count 8.8 x10^3/uL (4.0-11.0) Red Blood Count 4.07 x10^6/uL (3.50-5.40) Hemoglobin 12.4 g/dL (12.0-15.5) Hematocrit 36.4 % (36.0-47.0) Mean Corpuscular Volume 89 fL (79-100) Mean Corpuscular Hemoglobin 30 pg (25-35) Mean Corpuscular Hemoglobin Concent 34 g/dL (31-37) Red Cell Distribution Width 14.0 % (11.5-14.5) Platelet Count 279 x10^3/uL (140-400) Neutrophils (%) (Auto) 83 % (31-73) Lymphocytes (%) (Auto) 6 % (24-48) Monocytes (%) (Auto) 8 % (0-9) Eosinophils (%) (Auto) 3 % (0-3) Basophils (%) (Auto) 0 % (0-3) Neutrophils # (Auto) 7.2 x10^3uL (1.8-7.7) Lymphocytes # (Auto) 0.6 x10^3/uL (1.0-4.8) Monocytes # (Auto) 0.7 x10^3/uL (0.0-1.1) Eosinophils # (Auto) 0.3 x10^3/uL (0.0-0.7) Basophils # (Auto) 0.0 x10^3/uL (0.0-0.2) Sodium Level 137 mmol/L (136-145) Potassium Level 4.6 mmol/L (3.5-5.1) Chloride Level 100 mmol/L (98-107) Carbon Dioxide Level 30 mmol/L (21-32) Anion Gap 7 (6-14) Blood Urea Nitrogen 12 mg/dL (7-20) Creatinine 0.8 mg/dL (0.6-1.0) Estimated GFR (Cockcroft-Gault) 83.7 BUN/Creatinine Ratio 15 (6-20) Glucose Level 119 mg/dL (70-99) Calcium Level 9.1 mg/dL (8.5-10.1) Total Bilirubin 0.4 mg/dL (0.2-1.0) Aspartate Amino Transf (AST/SGOT) 19 U/L (15-37) Alanine Aminotransferase (ALT/SGPT) 13 U/L (14-59) Alkaline Phosphatase 103 U/L (46-116) Total Protein 7.5 g/dL (6.4-8.2) Albumin 2.7 g/dL (3.4-5.0) Albumin/Globulin Ratio 0.6 (1.0-1.7) Microbiology 05/11/18 Fecal Leukocyte Stain - Final, Complete 05/08/18 Urine Culture - Final, Complete 05/08/18 Urine Culture Result 1 (CARLIE) - Final, Complete Vitals/I & O Vital Sign - Last 24 Hours 05/11/18 05/11/18 05/11/18 05/11/18 15:00 15:18 19:00 20:22 Temp 99.2 98.7 99.2 98.7 Pulse 120 101 Resp 18 18 B/P (MAP) 137/71 (93) 116/54 (74) Pulse Ox 96 94 97 94 O2 Delivery Nasal Cannula Nasal Cannula Nasal Cannula Room Air O2 Flow Rate 2.0 2.0 2.0 05/11/18 05/11/18 05/11/18 05/12/18 20:38 20:40 23:00 01:24 Temp 99.6 99.6 Pulse 83 Resp 20 18 20 B/P (MAP) 143/69 (93) Pulse Ox 94 95 95 O2 Delivery Nasal Cannula Nasal Cannula Nasal Cannula Room Air O2 Flow Rate 2.0 2.0 2.0 05/12/18 05/12/18 05/12/1805/12/18 02:25 03:01 03:02 07:00 Temp 99.6 98.3 99.6 98.3 Pulse 102 110 Resp 18 18 18 18 B/P (MAP) 127/68 (87) 141/68 (92) Pulse Ox 94 88 94 94 O2 Delivery Nasal Cannula Room Air Nasal Cannula Room Air O2 Flow Rate 2.0 2.0 05/12/18 05/12/18 05/12/18 05/12/18 08:20 08:25 08:48 11:00 Temp 98.6 98.6 Pulse 110 101 Resp 18 B/P (MAP) 141/68 124/74 (91) Pulse Ox 94 96 O2 Delivery Room Air Room Air Room Air 05/12/18 12:39 Pulse Ox 97 O2 Delivery Room Air Intake and Output 05/11/18 05/11/18 05/12/18 15:00 23:00 07:00 Intake Total 180 ml 420 ml 240 ml Balance 180 ml 420 ml 240 ml Assessment Chronic abdominal pain--functional? Extensive negative w/u's over the years. Don't believe this is likely chronic mesenteric insufficiency either. Plan of Care Note Try antispasmodic. Await CTA. RALPH CAMEJO MD May 12, 2018 13:53
[2018-05-12 15:00] VITALS: BP 122/71
--- NOTE | 2018-05-12 15:45 | PDOC ---
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 Small subacute infarct along the right ventricle. Metabolic encephalopathy. Confusion. UTI. HTN. CHF EF 45%. Abdominal pain. Old small lacunar infarcts near right frontal horn and right occipital lobe. 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 Brain atrophy, cannabinoids induced and CVA. Cannabinoid use/abuse x 50 years. Smoking x 50 years. Drinking. Benzo positive. RECOMMENDATIONS/PLAN: ASA 325 mg daily,. Lipitor 10 mg HS. Keppra 500 mg bid. Treat UTI. Treat medical diseases. Consulted GI. 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 Patient education for marijuana and smoking cessation. Discussed in all detail again with her and her daughter at bedside on 05/11/18. HISTORY OF THE PRESENT ILLNESS: 77-y-old AA female patient with Hx of marijuana use/abuse and smoking for about 50 years. She had a seizure on 05/07/18 described by her daughter as LOC, eyes rolling back to her head, foam from her mouth, stiffness with shaking movements in her UE mostly for several minutes. Postictally, she was confused and unable to recognize her surroundings. She had 4 similar episodes in the past 1.5 years per her daughter. PMH: HTN, mild valvular heart disease? Seizure, UTI, diverticulosis. PAST SURGERY HISTORY: Tonsillectomy Appendectomy, Hysterectomy ALLERGY: Reviewed. MEDICATIONS: Refer to [facility] FAMILY HISTORY: Non contributory. No seizures. SOCIAL HISTORY: Lives at home. he smokes < 1 pack of cigarettes a day for 50 years. She drinks alcohol occasionally. She uses marijuana on a daily basis for 50 years.. REVIEW OF SYSTEMS: Constitutional: No cachexia. Head: No recent traumatic brain or head injury. Skin: No edema, or rash. Ear: No infection. Eyes: No vision loss or color blindness. Nose: No bleeding or purulent discharges. Hearing: Mild hearing decrease. Neck: No injury. Breast: No history of cancer, masses,or discharges. Cardiac: HTN. Pulmonary: COPD? longstanding smoking. GI: Diverticulosis. Urinary/genital: UTI. Endocrinologic: No cousin face, craniofacial dysmorphism, polydactyly. Skeletomuscular: No muscular atrophy, deformity. Neurological: see HP. Psychiatric: Substance and drug use/abuse. Otherwise, not [id number] review of systems. PHYSICAL EXAMINATION: General appearance is in subacute distress. HEENT: Normocephalic and nontraumatic. Eyes, nose, ears, and throat are unremarkable. Neck is supple. No lymphadenopathy. No crepitus. Cardiovascular: S1, S2, regular rate and rhythm. Pulmonary: Clear to auscultation bilaterally. Abdomen: Bowel sounds are positive. Extremities: No rash, lesions, or edema. No restriction of range of motion NEUROLOGICAL EXAMINATION: Awake. Sitting in chair. Oriented to time, place and person. PERRL. EOMI. CN: no focal findings. Muscle tone: within normal. Muscle strength: 5- DTR: 1-2 Plantar reflex: Neutral response bilaterally Gait: Able to walk with a walker. Sensory exam: no abnormal findings. No acute cerebellar signs elicited. Objective Objective Vital Signs Date Time Temp Pulse Resp B/P (MAP) Pulse Ox O2 Delivery O2 Flow Rate FiO2 05/12/18 15:00 99.1 107 18 122/71 (88) 97 Room Air 99.1 05/12/18 03:02 2.0 Intake and Output 05/12/18 07:00 Intake Total 840 ml Balance 840 ml Intake Oral 840 ml # Voids 9 # Bowel Movements 6 Vitals Signs Vitals VS - Last 72 Hours, by Label Date Time Temp Pulse Resp B/P (MAP) Pulse Ox O2 Delivery O2 Flow Rate FiO2 05/12/18 15:00 99.1 107 18 122/71 (88) 97 Room Air 99.1 05/12/18 12:39 97 Room Air 05/12/18 11:00 98.6 101 18 124/74 (91) 96 Room Air 98.6 05/12/18 08:48 110 141/68 05/12/18 08:25 Room Air 05/12/18 08:20 94 Room Air 05/12/18 07:00 98.3 110 18 141/68 (92) 94 Room Air 98.3 05/12/18 03:02 18 94 Nasal Cannula 2.0 05/12/18 03:01 99.6 102 18 127/68 (87) 88 Room Air 99.6 05/12/18 02:25 18 94 Nasal Cannula 2.0 05/12/18 01:24 20 95 Room Air 05/11/18 23:00 99.6 83 18 143/69 (93) 95 Nasal Cannula 2.0 99.6 05/11/18 20:40 Nasal Cannula 2.0 05/11/18 20:38 20 94 Nasal Cannula 2.0 05/11/18 20:22 94 Room Air 05/11/18 19:00 98.7 101 18 116/54 (74) 97 Nasal Cannula 2.0 98.7 05/11/18 15:18 94 Nasal Cannula 2.0 05/11/18 15:00 99.2 120 18 137/71 (93) 96 Nasal Cannula 2.0 99.2 05/11/18 11:00 97.4 113 20 112/82 (92) 94 Room Air 97.4 05/11/18 08:12 103 106/62 05/11/18 08:00 Room Air 05/11/18 07:00 99.0 103 24 106/62 (77) 94 Room Air 99.0 Laboratory Laboratory Laboratory Tests Test 05/12/18 05:10 White Blood Count 8.8 x10^3/uL (4.0-11.0) Red Blood Count 4.07 x10^6/uL (3.50-5.40) Hemoglobin 12.4 g/dL (12.0-15.5) Hematocrit 36.4 % (36.0-47.0) Mean Corpuscular Volume 89 fL (79-100) Mean Corpuscular Hemoglobin 30 pg (25-35) Mean Corpuscular Hemoglobin Concent 34 g/dL (31-37) Red Cell Distribution Width 14.0 % (11.5-14.5) Platelet Count 279 x10^3/uL (140-400) Neutrophils (%) (Auto) 83 % (31-73) Lymphocytes (%) (Auto) 6 % (24-48) Monocytes (%) (Auto) 8 % (0-9) Eosinophils (%) (Auto) 3 % (0-3) Basophils (%) (Auto) 0 % (0-3) Neutrophils # (Auto) 7.2 x10^3uL (1.8-7.7) Lymphocytes # (Auto) 0.6 x10^3/uL (1.0-4.8) Monocytes # (Auto) 0.7 x10^3/uL (0.0-1.1) Eosinophils # (Auto) 0.3 x10^3/uL (0.0-0.7) Basophils # (Auto) 0.0 x10^3/uL (0.0-0.2) Sodium Level 137 mmol/L (136-145) Potassium Level 4.6 mmol/L (3.5-5.1) Chloride Level 100 mmol/L (98-107) Carbon Dioxide Level 30 mmol/L (21-32) Anion Gap 7 (6-14) Blood Urea Nitrogen 12 mg/dL (7-20) Creatinine 0.8 mg/dL (0.6-1.0) Estimated GFR (Cockcroft-Gault) 83.7 BUN/Creatinine Ratio 15 (6-20) Glucose Level 119 mg/dL (70-99) Calcium Level 9.1 mg/dL (8.5-10.1) Total Bilirubin 0.4 mg/dL (0.2-1.0) Aspartate Amino Transf (AST/SGOT) 19 U/L (15-37) Alanine Aminotransferase (ALT/SGPT) 13 U/L (14-59) Alkaline Phosphatase 103 U/L (46-116) Total Protein 7.5 g/dL (6.4-8.2) Albumin 2.7 g/dL (3.4-5.0) Albumin/Globulin Ratio 0.6 (1.0-1.7) Microbiology 05/11/18 Fecal Leukocyte Stain - Final, Complete 05/08/18 Urine Culture - Final, Complete 05/08/18 Urine Culture Result 1 (CARLIE) - Final, Complete Medication Medications Current Medications Dicyclomine HCl (Bentyl) 10 mg TID PO ; Start 05/12/18 at 14:00 Diphenhydramine HCl (Benadryl) 50 mg 1X ONCE PO ; Start 05/13/18 at 07:00; Stop 05/13/18 at 07:01 Lubiprostone (Amitiza) 8 mcg BIDWMEALS PO Last administered on 05/12/18at 08:47 ; Start 05/11/18 at 17:00 Prednisone (Prednisone) 20 mg 1X ONCE PO ; Start 05/12/18 at 18:00; Stop at 18:01 Prednisone (Prednisone) 20 mg 1X ONCE PO ; Start 05/13/18 at 00:00; Stop at 00:01 Prednisone (Prednisone) 20 mg 1X ONCE PO ; Start 05/13/18 at 06:00; Stop at 06:01 Comment Review of Relevant I have reviewed the following items jamila (where applicable) has been applied. JUAN PABLO BARRIOS MD May 12, 2018 15:45
--- NOTE | 2018-05-12 17:27 | PDOC ---
PULMONARY PROGRESS NOTES Vitals Vital Signs Date Time Temp Pulse Resp B/P (MAP) Pulse Ox O2 Delivery O2 Flow Rate FiO2 05/12/18 16:32 Room Air 05/12/18 15:00 99.1 107 18 122/71 (88) 97 99.1 05/12/18 03:02 2.0 Lungs: Wheezing, Crackles, Other (coarse lung sounds b/l) Labs Laboratory Tests Test 05/11/18 07:15 05/11/18 13:35 05/12/18 05:10 White Blood Count 9.8 x10^3/uL (4.0-11.0) 8.8 x10^3/uL (4.0-11.0) Red Blood Count 4.10 x10^6/uL (3.50-5.40) 4.07 x10^6/uL (3.50-5.40) Hemoglobin 12.5 g/dL (12.0-15.5) 12.4 g/dL (12.0-15.5) Hematocrit 36.5 % (36.0-47.0) 36.4 % (36.0-47.0) Mean Corpuscular Volume 89 fL (79-100) 89 fL (79-100) Mean Corpuscular Hemoglobin 30 pg (25-35) 30 pg (25-35) Mean Corpuscular Hemoglobin Concent 34 g/dL (31-37) 34 g/dL (31-37) Red Cell Distribution Width 13.6 % (11.5-14.5) 14.0 % (11.5-14.5) Platelet Count 237 x10^3/uL (140-400) 279 x10^3/uL (140-400) Neutrophils (%) (Auto) 86 % (31-73) 83 % (31-73) Lymphocytes (%) (Auto) 4 % (24-48) 6 % (24-48) Monocytes (%) (Auto) 8 % (0-9) 8 % (0-9) Eosinophils (%) (Auto) 1 % (0-3) 3 % (0-3) Basophils (%) (Auto) 1 % (0-3) 0 % (0-3) Neutrophils # (Auto) 8.4 x10^3uL (1.8-7.7) 7.2 x10^3uL (1.8-7.7) Lymphocytes # (Auto) 0.4 x10^3/uL (1.0-4.8) 0.6 x10^3/uL (1.0-4.8) Monocytes # (Auto) 0.8 x10^3/uL (0.0-1.1) 0.7 x10^3/uL (0.0-1.1) Eosinophils # (Auto) 0.1 x10^3/uL (0.0-0.7) 0.3 x10^3/uL (0.0-0.7) Basophils # (Auto) 0.1 x10^3/uL (0.0-0.2) 0.0 x10^3/uL (0.0-0.2) Segmented Neutrophils % 86 % (35-66) Band Neutrophils % 2 % (0-9) Lymphocytes % 4 % (24-48) Monocytes % 7 % (0-10) Eosinophils % 1 % (0-5) Platelet Estimate Adequate (ADEQUATE) Sodium Level 136 mmol/L (136-145) 137 mmol/L (136-145) Potassium Level 4.1 mmol/L (3.5-5.1) 4.6 mmol/L (3.5-5.1) Chloride Level 99 mmol/L (98-107) 100 mmol/L (98-107) Carbon Dioxide Level 30 mmol/L (21-32) 30 mmol/L (21-32) Anion Gap 7 (6-14) 7 (6-14) Blood Urea Nitrogen 8 mg/dL (7-20) 12 mg/dL (7-20) Creatinine 0.9 mg/dL (0.6-1.0) 0.8 mg/dL (0.6-1.0) Estimated GFR (Cockcroft-Gault) 73.1 83.7 BUN/Creatinine Ratio 9 (6-20) 15 (6-20) Glucose Level 104 mg/dL (70-99) 119 mg/dL (70-99) Calcium Level 9.2 mg/dL (8.5-10.1) 9.1 mg/dL (8.5-10.1) Total Bilirubin 0.4 mg/dL (0.2-1.0) 0.4 mg/dL (0.2-1.0) Aspartate Amino Transf (AST/SGOT) 16 U/L (15-37) 19 U/L (15-37) Alanine Aminotransferase (ALT/SGPT) 12 U/L (14-59) 13 U/L (14-59) Alkaline Phosphatase 88 U/L (46-116) 103 U/L (46-116) Total Protein 7.2 g/dL (6.4-8.2) 7.5 g/dL (6.4-8.2) Albumin 2.6 g/dL (3.4-5.0) 2.7 g/dL (3.4-5.0) Albumin/Globulin Ratio 0.6 (1.0-1.7) 0.6 (1.0-1.7) Clostridium difficile Toxin (PCR) Negative (Negative) Laboratory Tests Test 05/12/18 05:10 White Blood Count 8.8 x10^3/uL (4.0-11.0) Red Blood Count 4.07 x10^6/uL (3.50-5.40) Hemoglobin 12.4 g/dL (12.0-15.5) Hematocrit 36.4 % (36.0-47.0) Mean Corpuscular Volume 89 fL (79-100) Mean Corpuscular Hemoglobin 30 pg (25-35) Mean Corpuscular Hemoglobin Concent 34 g/dL (31-37) Red Cell Distribution Width 14.0 % (11.5-14.5) Platelet Count 279 x10^3/uL (140-400) Neutrophils (%) (Auto) 83 % (31-73) Lymphocytes (%) (Auto) 6 % (24-48) Monocytes (%) (Auto) 8 % (0-9) Eosinophils (%) (Auto) 3 % (0-3) Basophils (%) (Auto) 0 % (0-3) Neutrophils # (Auto) 7.2 x10^3uL (1.8-7.7) Lymphocytes # (Auto) 0.6 x10^3/uL (1.0-4.8) Monocytes # (Auto) 0.7 x10^3/uL (0.0-1.1) Eosinophils # (Auto) 0.3 x10^3/uL (0.0-0.7) Basophils # (Auto) 0.0 x10^3/uL (0.0-0.2) Sodium Level 137 mmol/L (136-145) Potassium Level 4.6 mmol/L (3.5-5.1) Chloride Level 100 mmol/L (98-107) Carbon Dioxide Level 30 mmol/L (21-32) Anion Gap 7 (6-14) Blood Urea Nitrogen 12 mg/dL (7-20) Creatinine 0.8 mg/dL (0.6-1.0) Estimated GFR (Cockcroft-Gault) 83.7 BUN/Creatinine Ratio 15 (6-20) Glucose Level 119 mg/dL (70-99) Calcium Level 9.1 mg/dL (8.5-10.1) Total Bilirubin 0.4 mg/dL (0.2-1.0) Aspartate Amino Transf (AST/SGOT) 19 U/L (15-37) Alanine Aminotransferase (ALT/SGPT) 13 U/L (14-59) Alkaline Phosphatase 103 U/L (46-116) Total Protein 7.5 g/dL (6.4-8.2) Albumin 2.7 g/dL (3.4-5.0) Albumin/Globulin Ratio 0.6 (1.0-1.7) Medications Active Scripts Medications Dose Route/Sig Max Daily Dose Days Date Category Protonix (Pantoprazole Sodium) 20 Mg Tablet.dr 2 Tab PO DAILY 05/07/18 Reported Amlodipine Besylate 5 Mg Tablet 5 Mg PO DAILY 05/07/18 Reported Patanol (Olopatadine Hcl) 5 Ml Drops 1 Drop EACHEYE BID 05/07/18 Reported Lasix (Furosemide) 20 Mg Tablet 1 Tab PO DAILY 05/07/18 Reported Klor-Con 10 (Potassium Chloride) 10 Meq Tablet.er 1 Tab PO DAILY 05/07/18 Reported Amitiza (Lubiprostone) 8 Mcg Capsule 1 Cap PO BID 05/07/18 Reported Pepcid (Famotidine) 20 Mg Tablet 20 Mg PO BID 04/03/18 Rx Levsin-Sl (Hyoscyamine Sulfate) 0.125 Mg Tab.subl 1-2 Tab SL PRN Q4HRS PRN 04/03/18 Rx Toprol Xl (Metoprolol Succinate) 50 Mg Tab.er.24h 1 Tab PO DAILY 12/29/16 Reported Impression . note dictated, repeat cxr resp status is compensated SIMEON Knox MD May 12, 2018 17:26
[2018-05-12] MEDS ORDERED: predniSONE 20 MG TABLET PO ONE (18:00)
[2018-05-12] MEDS: DICYCLOMINE HCL 10 MG CAPSULE PO SCH ×2 (18:13→20:57)
[2018-05-12 19:00] VITALS: BP 142/70
[2018-05-12] MEDS: ATORVASTATIN CALCIUM 10 MG TABLET. PO SCH (20:57)
[2018-05-12] MEDS: ZOLPIDEM 5 MG TABLET. PO PRN (21:03)
[2018-05-12 23:00] VITALS: BP 135/75
--- NOTE | 2018-05-13 00:10 | CONS ---
DATE OF CONSULTATION: 05/12/2018 ATTENDING PHYSICIAN: Dr. Elisabet Head. REASON FOR CONSULTATION: The patient seen in pulmonary consultation at the request of Dr. Shine for possible aspiration. HISTORY OF PRESENT ILLNESS: The patient is a 77-year-old female that was admitted several days ago, had a seizure at the grocery store. She was also complaining of abdominal pain, diarrhea for 2 days, right-sided. She was constipated. She is currently being seen by the GI Service for chronic abdominal pain. She had extensive workup over the years and they recommended antispasmodic. I was asked to see the patient for possible aspiration. She has had some nausea, but no recent emesis. She had an MRA of the abdomen with contrast. 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 The patient used to smoke, but is currently not smoking, does not wear oxygen at home. No metered dose inhalers. PAST MEDICAL HISTORY: Hypertension, COPD, tobacco dependence in remission, seizures, gastroesophageal reflux and UTI. PAST SURGICAL HISTORY: Status post appendectomy, hysterectomy. FAMILY HISTORY: Alzheimer's disorder. SOCIAL HISTORY: She is currently smoking less than a pack of cigarettes a day, rare use of alcohol and does admit to marijuana use. REVIEW OF SYSTEMS: As indicated above, otherwise, a 10-point system was reviewed and negative. PHYSICAL EXAMINATION: GENERAL: The patient was afebrile. VITAL SIGNS: She is currently on room air in no respiratory distress. HEENT: Eyes, the sclerae were nonicteric. NECK: Jugular venous distention was not elevated. No lymphadenopathy. CHEST: Full expansion. LUNGS: Crackles throughout with no wheezes. CARDIOVASCULAR: Regular rate and rhythm with S1, S2, no S3. ABDOMEN: Soft, diffuse tenderness, nondistended. EXTREMITIES: No clubbing, cyanosis or edema. NEUROLOGIC: The patient was awake, alert, following commands. A detailed neuro exam was not performed. LABORATORY DATA: Reviewed. Chest x-ray from the 18 was normal. IMPRESSION: 1. Possible aspiration pneumonia. 2. Chronic abdominal pain. 3. 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 4. Seizure disorder. 5. Chronic obstructive pulmonary disease. PLAN: 1. Respiratory status appears to be compensated. We will proceed with chest x-ray. 2. Continue current medical management. 3. We will make further recommendations depending on the x-ray findings. I do appreciate the privilege in sharing this patient's care. SIMEON BHARDWAJ MD DR: DELMY/edie JOB#: [id number] / [id number]
[2018-05-13 03:10] VITALS: BP 141/68
[2018-05-13 04:58] LABS: BASO % 0 % (0-3); EOS % 0 % (0-3); HEMATOCRIT 35.8 % (36.0-47.0); HEMOGLOBIN 12.3 g/dL (12.0-15.5); LYMPH # 0.3 x10^3/uL (1.0-4.8); LYMPH % 4 % (24-48); MEAN CORPUSCULAR HEMOGLOBIN 31 pg (25-35); MEAN CORPUSCULAR HGB CONC 34 g/dL (31-37); MEAN CORPUSCULAR VOLUME 89 fL (79-100); MONO # 0.1 x10^3/uL (0.0-1.1); MONO % 1 % (0-9); NEUT % 94 % (31-73); PLATELET COUNT 291 x10^3/uL (140-400); RED BLOOD COUNT 4.04 x10^6/uL (3.50-5.40); RED CELL DISTRIBUTION WIDTH 13.6 % (11.5-14.5); WHITE BLOOD COUNT 6.3 x10^3/uL (4.0-11.0)
[2018-05-13 05:22] LABS: ALBUMIN 2.6 g/dL (3.4-5.0); ALBUMIN/GLOBULIN RATIO 0.5 (1.0-1.7); CALCIUM 9.7 mg/dL (8.5-10.1); CREATININE 0.9 mg/dL (0.6-1.0); GFR 73.1; POTASSIUM 4.3 mmol/L (3.5-5.1); TOTAL BILIRUBIN 0.3 mg/dL (0.2-1.0); TOTAL PROTEIN 7.5 g/dL (6.4-8.2)
[2018-05-13] MEDS ORDERED: predniSONE 20 MG TABLET PO ONE ×2 (06:00)
[2018-05-13] MEDS: IPRATRPIUM/ALBUTEROL 0.5/2.5MG 3 ML NEBU. NEB SCH ×4 (06:43→19:31)
[2018-05-13] MEDS ORDERED: diphenhydrAMINE HCL 25 MG CAPSULE PO ONE (07:00)
[2018-05-13] MEDS ORDERED: IOHEXOL 300 MG/ML 100ML VIAL. IV ONE (07:15)
[2018-05-13] MEDS: MORPHINE SULFATE 4 MG/ML VIAL. IV PRN (07:36)
[2018-05-13] MEDS: KETOTIFEN FUMARATE 0.025% OPHTH SOLUTION BOTTLE. OU SCH ×2 (07:36→20:10)
--- NOTE | 2018-05-13 08:06 | RAD ---
Portable chest, 05/12/2018: HISTORY: Aspiration Comparison is made to a study from 05/07/2018. The heart size is normal. There is moderate calcific plaquing of the aorta. The pulmonary vascularity is normal. No pulmonary infiltrate is seen. There is no evidence of pleural fluid. Moderate spurring is present in the spine. IMPRESSION: No acute cardiopulmonary abnormality is detected. Electronically signed by: Amor Stanley MD (05/13/2018 8:03 AM) [facility]
[2018-05-13 08:15] VITALS: BP 144/72
[2018-05-13] MEDS: DOCUSATE SODIUM 100 MG CAPSULE. PO SCH (08:58)
[2018-05-13] MEDS: PSYLLIUM HUSK (SUGAR FREE) 1 PKT PACKET PO SCH (08:58)
[2018-05-13] MEDS: PANTOPRAZOLE 40 MG TABLET.DR. PO SCH (08:59)
[2018-05-13] MEDS: DICYCLOMINE HCL 10 MG CAPSULE PO SCH ×3 (08:59→20:11)
[2018-05-13] MEDS: LACTOBACILLUS RHAMNOSUS GG 1 CAPSULE. PO SCH ×2 (08:59→20:10)
[2018-05-13] MEDS: amLODIPine BESYLATE 2.5 MG TABLET PO SCH (08:59)
[2018-05-13] MEDS: POTASSIUM CHLORIDE 10 MEQ TABLET.ER. PO SCH (08:59)
[2018-05-13] MEDS: ASPIRIN ENTERIC COATED 81 MG TABLET.DR. PO SCH (08:59)
[2018-05-13] MEDS: LUBIPROSTONE 8 MCG CAPSULE PO SCH ×2 (08:59→17:27)
[2018-05-13] MEDS: FUROSEMIDE 20 MG TABLET PO SCH (08:59)
--- NOTE | 2018-05-13 09:54 | PDOC ---
PROGRESS NOTES Subjective Subjective Pt dangled at bedside, just finished breakfast. Reports ok apetite. Her abdominal pain is located in RU and LQ and described as dull 03/30. It does not radiate anywhere. She denies nausea or vomiting or diarrhea. She still has not had a normal bowel movement, regardless of current bowel regimen. Her pain is intermittent. Nothing makes her pain better and today it was worsened by eating. She reports a "full sensation". Objective Objective Vital Signs Date Time Temp Pulse Resp B/P (MAP) Pulse Ox O2 Delivery O2 Flow Rate FiO2 05/13/18 08:59 108 144/72 05/13/18 08:15 97.6 16 96 Room Air 97.6 05/12/18 03:02 2.0 Intake and Output 05/13/18 07:00 Intake Total 250 ml Balance 250 ml Intake Oral 250 ml # Voids 6 # Bowel Movements 3 Physical Exam Physical Exam Awake, alert, in mild distress from pain Respirations non-labored Abdomen soft, tender to palpation in RUQ and centrally. No masses noted. No peripheral edema Plan Plan of Care MRA and US showed celiac stenosis. Pt went for CTA this morning for better assessment of arterial disease, report pending. We will follow up with results. Pt also appears to be constipated, Recommend continue bowel regimen. Comment Review of Relevant I have reviewed the following items jamila (where applicable) has been applied. Labs Laboratory Tests Test 05/11/18 13:35 05/12/18 05:10 05/13/18 04:15 Clostridium difficile Toxin (PCR) Negative (Negative) White Blood Count 8.8 x10^3/uL (4.0-11.0) 6.3 x10^3/uL (4.0-11.0) Red Blood Count 4.07 x10^6/uL (3.50-5.40) 4.04 x10^6/uL (3.50-5.40) Hemoglobin 12.4 g/dL (12.0-15.5) 12.3 g/dL (12.0-15.5) Hematocrit 36.4 % (36.0-47.0) 35.8 % (36.0-47.0) Mean Corpuscular Volume 89 fL (79-100) 89 fL (79-100) Mean Corpuscular Hemoglobin 30 pg (25-35) 31 pg (25-35) Mean Corpuscular Hemoglobin Concent 34 g/dL (31-37) 34 g/dL (31-37) Red Cell Distribution Width 14.0 % (11.5-14.5) 13.6 % (11.5-14.5) Platelet Count 279 x10^3/uL (140-400) 291 x10^3/uL (140-400) Neutrophils (%) (Auto) 83 % (31-73) 94 % (31-73) Lymphocytes (%) (Auto) 6 % (24-48) 4 % (24-48) Monocytes (%) (Auto) 8 % (0-9) 1 % (0-9) Eosinophils (%) (Auto) 3 % (0-3) 0 % (0-3) Basophils (%) (Auto) 0 % (0-3) 0 % (0-3) Neutrophils # (Auto) 7.2 x10^3uL (1.8-7.7) 6.0 x10^3uL (1.8-7.7) Lymphocytes # (Auto) 0.6 x10^3/uL (1.0-4.8) 0.3 x10^3/uL (1.0-4.8) Monocytes # (Auto) 0.7 x10^3/uL (0.0-1.1) 0.1 x10^3/uL (0.0-1.1) Eosinophils # (Auto) 0.3 x10^3/uL (0.0-0.7) 0.0 x10^3/uL (0.0-0.7) Basophils # (Auto) 0.0 x10^3/uL (0.0-0.2) 0.0 x10^3/uL (0.0-0.2) Sodium Level 137 mmol/L (136-145) 138 mmol/L (136-145) Potassium Level 4.6 mmol/L (3.5-5.1) 4.3 mmol/L (3.5-5.1) Chloride Level 100 mmol/L (98-107) 101 mmol/L (98-107) Carbon Dioxide Level 30 mmol/L (21-32) 29 mmol/L (21-32) Anion Gap 7 (6-14) 8 (6-14) Blood Urea Nitrogen 12 mg/dL (7-20) 11 mg/dL (7-20) Creatinine 0.8 mg/dL (0.6-1.0) 0.9 mg/dL (0.6-1.0) Estimated GFR (Cockcroft-Gault) 83.7 73.1 BUN/Creatinine Ratio 15 (6-20) 12 (6-20) Glucose Level 119 mg/dL (70-99) 164 mg/dL (70-99) Calcium Level 9.1 mg/dL (8.5-10.1) 9.7 mg/dL (8.5-10.1) Total Bilirubin 0.4 mg/dL (0.2-1.0) 0.3 mg/dL (0.2-1.0) Aspartate Amino Transf (AST/SGOT) 19 U/L (15-37) 16 U/L (15-37) Alanine Aminotransferase (ALT/SGPT) 13 U/L (14-59) 13 U/L (14-59) Alkaline Phosphatase 103 U/L (46-116) 86 U/L (46-116) Total Protein 7.5 g/dL (6.4-8.2) 7.5 g/dL (6.4-8.2) Albumin 2.7 g/dL (3.4-5.0) 2.6 g/dL (3.4-5.0) Albumin/Globulin Ratio 0.6 (1.0-1.7) 0.5 (1.0-1.7) Laboratory Tests Test 05/13/18 04:15 White Blood Count 6.3 x10^3/uL (4.0-11.0) Red Blood Count 4.04 x10^6/uL (3.50-5.40) Hemoglobin 12.3 g/dL (12.0-15.5) Hematocrit 35.8 % (36.0-47.0) Mean Corpuscular Volume 89 fL (79-100) Mean Corpuscular Hemoglobin 31 pg (25-35) Mean Corpuscular Hemoglobin Concent 34 g/dL (31-37) Red Cell Distribution Width 13.6 % (11.5-14.5) Platelet Count 291 x10^3/uL (140-400) Neutrophils (%) (Auto) 94 % (31-73) Lymphocytes (%) (Auto) 4 % (24-48) Monocytes (%) (Auto) 1 % (0-9) Eosinophils (%) (Auto) 0 % (0-3) Basophils (%) (Auto) 0 % (0-3) Neutrophils # (Auto) 6.0 x10^3uL (1.8-7.7) Lymphocytes # (Auto) 0.3 x10^3/uL (1.0-4.8) Monocytes # (Auto) 0.1 x10^3/uL (0.0-1.1) Eosinophils # (Auto) 0.0 x10^3/uL (0.0-0.7) Basophils # (Auto) 0.0 x10^3/uL (0.0-0.2) Sodium Level 138 mmol/L (136-145) Potassium Level 4.3 mmol/L (3.5-5.1) Chloride Level 101 mmol/L (98-107) Carbon Dioxide Level 29 mmol/L (21-32) Anion Gap 8 (6-14) Blood Urea Nitrogen 11 mg/dL (7-20) Creatinine 0.9 mg/dL (0.6-1.0) Estimated GFR (Cockcroft-Gault) 73.1 BUN/Creatinine Ratio 12 (6-20) Glucose Level 164 mg/dL (70-99) Calcium Level 9.7 mg/dL (8.5-10.1) Total Bilirubin 0.3 mg/dL (0.2-1.0) Aspartate Amino Transf (AST/SGOT) 16 U/L (15-37) Alanine Aminotransferase (ALT/SGPT) 13 U/L (14-59) Alkaline Phosphatase 86 U/L (46-116) Total Protein 7.5 g/dL (6.4-8.2) Albumin 2.6 g/dL (3.4-5.0) Albumin/Globulin Ratio 0.5 (1.0-1.7) Microbiology 05/11/18 Fecal Leukocyte Stain - Final, Complete 05/08/18 Urine Culture - Final, Complete 05/08/18 Urine Culture Result 1 (CARLIE) - Final, Complete Medications Current Medications Pantoprazole Sodium (PROTONIX VIAL for IV PUSH) 40 mg DAILYAC IVP ; Start 05/07 at 16:30; Stop 05/07/18 at 18:45; Status DC Albuterol Sulfate (Ventolin Neb Soln) 2.5 mg PRN Q4HRS PRN NEB SHORTNESS OF BREATH; Start 05/07/18 at 15:45 Albuterol/ Ipratropium (Duoneb) 3 ml RTQID NEB Last administered on 05/13/18at 06:43; Start 05/07/18 at 16:00 Levofloxacin/ Dextrose (Levaquin Per Pharmacy) 1 each PRN DAILY PRN MC SEE COMMENTS; Start 05/07/18 at 16:00 Levofloxacin/ Dextrose 50 ml @ 50 mls/hr Q24H IV Last administered on at 17:42; Start 05/07/18 at 17:00; Stop 05/09/18 at 15:06; Status DC Gadobutrol (Gadavist) 6 mmol 1X ONCE IV Last administered on 05/07/18at 16:43 ; Start 05/07/18 at 16:30; Stop 05/07/18 at 16:34; Status DC Oxycodone/ Acetaminophen (Percocet 5/325) 2 tab PRN Q6HRS PRN PO PAIN MOD TO SEV Last administered on 05/10/18at 22:00; Start 05/07/18 at 17:15; Stop 05/12 at 18:58; Status DC Oxycodone/ Acetaminophen (Percocet 5/325) 1 tab PRN Q4HRS PRN PO PAIN MILD Last administered on 05/12/18at 01:24; Start 05/07/18 at 17:15 Aspirin (Jovany Aspirin) 325 mg DAILYWBKFT PO Last administered on 05/08/18at 08 :30; Start 05/07/18 at 18:30; Stop 05/10/18 at 14:06; Status DC Famotidine (Pepcid) 20 mg BID PO Last administered on 05/08/18at 08:29; Start 05/07/18 at 21:00; Stop 05/08/18 at 11:53; Status DC Furosemide (Lasix) 20 mg DAILY PO Last administered on 05/13/18at 08:59; Start 05/07/18 at 19:00 Potassium Chloride (Klor-Con) 10 meq DAILY PO Last administered on 05/13/18at 08:59; Start 05/07/18 at 19:00 Ketotifen Fumarate (Zaditor) 1 drop BID OU Last administered on 05/13/18 07: 36; Start 05/07/18 at 21:00 Pantoprazole Sodium (Protonix) 40 mg DAILYAC PO Last administered on 08:59; Start 05/07/18 at 19:00 Amlodipine Besylate (Norvasc) 2.5 mg DAILY PO Last administered on 05/13/18 08:59; Start 05/07/18 at 19:00 Amlodipine Besylate (Norvasc) 2.5 mg 1X ONCE PO ; Start 05/07/18 at 19:00; Stop 05/07/18 at 19:01; Status DC Zolpidem Tartrate (Ambien) 5 mg PRN QHS PRN PO INSOMNIA Last administered on 21:03; Start 05/07/18 at 21:15 Morphine Sulfate (Morphine Sulfate) 4 mg PRN Q2HR PRN IV PAIN Last administered on 05/13/18 07:36; Start 05/08/18 at 10:30 Docusate Sodium (Colace) 100 mg DAILY PO Last administered on 05/13/18 08:58 ; Start 05/08/18 at 11:00 Senna/Docusate Sodium (Senna Plus) 1 tab DAILY PRN PO CONSTIPATION, 2ND CHOICE Last administered on 05/12/18 08:47; Start 05/08/18 at 10:30 Polyethylene Glycol (miraLAX PACKET) 17 gm PRN DAILY PRN PO CONSTIPATION, 1ST CHOICE Last administered on 05/08/18at 10:39; Start 05/08/18 at 10:30; Stop at 20:16; Status DC Atorvastatin Calcium (Lipitor) 10 mg QHS PO Last administered on 05/12/18 20: 57; Start 05/08/18 at 21:00 Famotidine (Pepcid) 20 mg DAILY PO ; Start 05/09/18 at 09:00; Stop 05/09/18 at 09:00; Status DC Psyllium Hydrophilic Mucilloid (Metamucil Fiber Packet) 1 pkt DAILY PO Last administered on 05/13/18 08:58; Start 05/08/18 at 13:00 Lactobacillus Rhamnosus (Culturelle) 1 cap BID PO Last administered on 08:59; Start 05/08/18 at 21:00 Lactulose (LACTULOSE 300ML for RECTAL) 200 gm 1X ONCE TX ; Start 05/09/18 at 12:45; Stop 05/09/18 at 12:46; Status UNV Lactulose (Lactulose) 20 gm PRN DAILY PRN PO CONSTIPATION 3RD CHOICE Last administered on 05/11/18 08:10; Start 05/09/18 at 12:45 Simethicone (Gas-X) 80 mg PRN AFTMEALHC PRN PO GAS / BLOATING Last administered on 05/09/18 14:13; Start 05/09/18 at 12:45 Levofloxacin (Levaquin) 250 mg QHS PO Last administered on 05/12/18 20:57; Start 05/09/18 at 21:00 Polyethylene Glycol (miraLAX PACKET) 17 gm PRN TID PRN PO CONSTIPATION, 1ST CHOICE Last administered on 05/10/18at 22:00; Start 05/09/18 at 20:30 Mineral Oil (Mineral Oil) 30 ml PRN DAILY PRN PO CONSTIPATION, UNREL BY OTHERS Last administered on 05/10/18 13:36; Start 05/10/18 at 13:00 Aspirin (Ecotrin) 81 mg DAILYWBKFT PO Last administered on 05/13/18 08:59; Start 05/10/18 at 14:15 Sucralfate (Carafate) 1 gm PRN BFRMEALHC PRN PO STOMACH PAIN Last administered on 05/12/18 08:47; Start 05/10/18 at 14:15 Alprazolam (Xanax) 0.25 mg PRN BID PRN PO ANXIETY / AGITATION Last administered on 05/11/18 08:10; Start 05/10/18 at 18:15 Influenza Virus Vaccine (Afluria Trivalent [id number] Syringe) 0.5 ml ONCE ONCE VAX IM Last administered on 05/11/18 17:29; Start 05/11/18 at 10:30; Stop 05/11/18 at 10:31; Status DC Lubiprostone (Amitiza) 8 mcg BIDWMEALS PO Last administered on 05/13/18 08:59 ; Start 05/11/18 at 17:00 Gadobutrol (Gadavist) 7.5 mmol 1X ONCE IV Last administered on 05/11/18at 14: 50; Start 05/11/18 at 14:30; Stop 05/11/18 at 14:31; Status DC Prednisone (Prednisone) 20 mg 1X ONCE PO Last administered on 05/12/18at 18:13 ; Start 05/12/18 at 18:00; Stop 05/12/18 at 18:01; Status DC Prednisone (Prednisone) 20 mg 1X ONCE PO Last administered on 05/12/18at 23:44 ; Start 05/13/18 at 00:00; Stop 05/13/18 at 00:01; Status DC Prednisone (Prednisone) 20 mg 1X ONCE PO Last administered on 05/13/18at 06:01 ; Start 05/13/18 at 06:00; Stop 05/13/18 at 06:01; Status DC Diphenhydramine HCl (Benadryl) 50 mg 1X ONCE PO Last administered on at 08:11; Start 05/13/18 at 07:00; Stop 05/13/18 at 07:01; Status DC Dicyclomine HCl (Bentyl) 10 mg TID PO Last administered on 05/13/18at 08:59; Start 05/12/18 at 14:00 Iohexol (Omnipaque 300 Mg/ml) 90 ml 1X ONCE IV Last administered on at 08:38; Start 05/13/18 at 07:15; Stop 05/13/18 at 07:18; Status DC Active Scripts Active Pepcid (Famotidine) 20 Mg Tablet 20 Mg PO BID Levsin-Sl (Hyoscyamine Sulfate) 0.125 Mg Tab.subl 1-2 Tab SL PRN Q4HRS PRN Reported Protonix (Pantoprazole Sodium) 20 Mg Tablet.dr 2 Tab PO DAILY Amlodipine Besylate 5 Mg Tablet 5 Mg PO DAILY Patanol (Olopatadine Hcl) 5 Ml Drops 1 Drop EACHEYE BID Lasix (Furosemide) 20 Mg Tablet 1 Tab PO DAILY Klor-Con 10 (Potassium Chloride) 10 Meq Tablet.er 1 Tab PO DAILY Amitiza (Lubiprostone) 8 Mcg Capsule 1 Cap PO BID Toprol Xl (Metoprolol Succinate) 50 Mg Tab.er.24h 1 Tab PO DAILY Vitals/I & O Vital Sign - Last 24 Hours 05/12/18 05/12/18 05/12/18 05/12/18 11:00 12:39 15:00 16:32 Temp 98.6 99.1 98.6 99.1 Pulse 101 107 Resp 18 18 B/P (MAP) 124/74 (91) 122/71 (88) Pulse Ox 96 97 97 O2 Delivery Room Air Room Air Room Air Room Air 05/12/18 05/12/18 05/12/18 05/13/18 19:00 20:00 23:00 03:10 Temp 97.9 99.7 97.5 97.9 99.7 97.5 Pulse 107 101 99 Resp 18 16 16 B/P (MAP) 142/70 (94) 135/75 (95) 141/68 (92) Pulse Ox 98 99 99 O2 Delivery Room Air Room Air Room Air Room Air 05/13/18 05/13/18 05/13/18 06:43 08:15 08:59 Temp 97.6 97.6 Pulse 108 108 Resp 16 B/P (MAP) 144/72 (96) 144/72 Pulse Ox 98 96 O2 Delivery Room Air Room Air Intake and Output 05/12/18 05/12/18 05/13/18 15:00 23:00 07:00 Intake Total 250 ml Balance 250 ml MINGO HOUSTON May 13, 2018 09:54
--- NOTE | 2018-05-13 10:22 | PDOC ---
PULMONARY PROGRESS NOTES Vitals Vital Signs Date Time Temp Pulse Resp B/P (MAP) Pulse Ox O2 Delivery O2 Flow Rate FiO2 05/13/18 08:59 108 144/72 05/13/18 08:15 97.6 16 96 Room Air 97.6 Lungs: Wheezing, Crackles, Other (coarse lung sounds b/l) Labs Laboratory Tests Test 05/11/18 13:35 05/12/18 05:10 05/13/18 04:15 Clostridium difficile Toxin (PCR) Negative (Negative) White Blood Count 8.8 x10^3/uL (4.0-11.0) 6.3 x10^3/uL (4.0-11.0) Red Blood Count 4.07 x10^6/uL (3.50-5.40) 4.04 x10^6/uL (3.50-5.40) Hemoglobin 12.4 g/dL (12.0-15.5) 12.3 g/dL (12.0-15.5) Hematocrit 36.4 % (36.0-47.0) 35.8 % (36.0-47.0) Mean Corpuscular Volume 89 fL (79-100) 89 fL (79-100) Mean Corpuscular Hemoglobin 30 pg (25-35) 31 pg (25-35) Mean Corpuscular Hemoglobin Concent 34 g/dL (31-37) 34 g/dL (31-37) Red Cell Distribution Width 14.0 % (11.5-14.5) 13.6 % (11.5-14.5) Platelet Count 279 x10^3/uL (140-400) 291 x10^3/uL (140-400) Neutrophils (%) (Auto) 83 % (31-73) 94 % (31-73) Lymphocytes (%) (Auto) 6 % (24-48) 4 % (24-48) Monocytes (%) (Auto) 8 % (0-9) 1 % (0-9) Eosinophils (%) (Auto) 3 % (0-3) 0 % (0-3) Basophils (%) (Auto) 0 % (0-3) 0 % (0-3) Neutrophils # (Auto) 7.2 x10^3uL (1.8-7.7) 6.0 x10^3uL (1.8-7.7) Lymphocytes # (Auto) 0.6 x10^3/uL (1.0-4.8) 0.3 x10^3/uL (1.0-4.8) Monocytes # (Auto) 0.7 x10^3/uL (0.0-1.1) 0.1 x10^3/uL (0.0-1.1) Eosinophils # (Auto) 0.3 x10^3/uL (0.0-0.7) 0.0 x10^3/uL (0.0-0.7) Basophils # (Auto) 0.0 x10^3/uL (0.0-0.2) 0.0 x10^3/uL (0.0-0.2) Sodium Level 137 mmol/L (136-145) 138 mmol/L (136-145) Potassium Level 4.6 mmol/L (3.5-5.1) 4.3 mmol/L (3.5-5.1) Chloride Level 100 mmol/L (98-107) 101 mmol/L (98-107) Carbon Dioxide Level 30 mmol/L (21-32) 29 mmol/L (21-32) Anion Gap 7 (6-14) 8 (6-14) Blood Urea Nitrogen 12 mg/dL (7-20) 11 mg/dL (7-20) Creatinine 0.8 mg/dL (0.6-1.0) 0.9 mg/dL (0.6-1.0) Estimated GFR (Cockcroft-Gault) 83.7 73.1 BUN/Creatinine Ratio 15 (6-20) 12 (6-20) Glucose Level 119 mg/dL (70-99) 164 mg/dL (70-99) Calcium Level 9.1 mg/dL (8.5-10.1) 9.7 mg/dL (8.5-10.1) Total Bilirubin 0.4 mg/dL (0.2-1.0) 0.3 mg/dL (0.2-1.0) Aspartate Amino Transf (AST/SGOT) 19 U/L (15-37) 16 U/L (15-37) Alanine Aminotransferase (ALT/SGPT) 13 U/L (14-59) 13 U/L (14-59) Alkaline Phosphatase 103 U/L (46-116) 86 U/L (46-116) Total Protein 7.5 g/dL (6.4-8.2) 7.5 g/dL (6.4-8.2) Albumin 2.7 g/dL (3.4-5.0) 2.6 g/dL (3.4-5.0) Albumin/Globulin Ratio 0.6 (1.0-1.7) 0.5 (1.0-1.7) Laboratory Tests Test 05/13/18 04:15 White Blood Count 6.3 x10^3/uL (4.0-11.0) Red Blood Count 4.04 x10^6/uL (3.50-5.40) Hemoglobin 12.3 g/dL (12.0-15.5) Hematocrit 35.8 % (36.0-47.0) Mean Corpuscular Volume 89 fL (79-100) Mean Corpuscular Hemoglobin 31 pg (25-35) Mean Corpuscular Hemoglobin Concent 34 g/dL (31-37) Red Cell Distribution Width 13.6 % (11.5-14.5) Platelet Count 291 x10^3/uL (140-400) Neutrophils (%) (Auto) 94 % (31-73) Lymphocytes (%) (Auto) 4 % (24-48) Monocytes (%) (Auto) 1 % (0-9) Eosinophils (%) (Auto) 0 % (0-3) Basophils (%) (Auto) 0 % (0-3) Neutrophils # (Auto) 6.0 x10^3uL (1.8-7.7) Lymphocytes # (Auto) 0.3 x10^3/uL (1.0-4.8) Monocytes # (Auto) 0.1 x10^3/uL (0.0-1.1) Eosinophils # (Auto) 0.0 x10^3/uL (0.0-0.7) Basophils # (Auto) 0.0 x10^3/uL (0.0-0.2) Sodium Level 138 mmol/L (136-145) Potassium Level 4.3 mmol/L (3.5-5.1) Chloride Level 101 mmol/L (98-107) Carbon Dioxide Level 29 mmol/L (21-32) Anion Gap 8 (6-14) Blood Urea Nitrogen 11 mg/dL (7-20) Creatinine 0.9 mg/dL (0.6-1.0) Estimated GFR (Cockcroft-Gault) 73.1 BUN/Creatinine Ratio 12 (6-20) Glucose Level 164 mg/dL (70-99) Calcium Level 9.7 mg/dL (8.5-10.1) Total Bilirubin 0.3 mg/dL (0.2-1.0) Aspartate Amino Transf (AST/SGOT) 16 U/L (15-37) Alanine Aminotransferase (ALT/SGPT) 13 U/L (14-59) Alkaline Phosphatase 86 U/L (46-116) Total Protein 7.5 g/dL (6.4-8.2) Albumin 2.6 g/dL (3.4-5.0) Albumin/Globulin Ratio 0.5 (1.0-1.7) Medications Active Scripts Medications Dose Route/Sig Max Daily Dose Days Date Category Protonix (Pantoprazole Sodium) 20 Mg Tablet.dr 2 Tab PO DAILY 05/07/18 Reported Amlodipine Besylate 5 Mg Tablet 5 Mg PO DAILY 05/07/18 Reported Patanol (Olopatadine Hcl) 5 Ml Drops 1 Drop EACHEYE BID 05/07/18 Reported Lasix (Furosemide) 20 Mg Tablet 1 Tab PO DAILY 05/07/18 Reported Klor-Con 10 (Potassium Chloride) 10 Meq Tablet.er 1 Tab PO DAILY 05/07/18 Reported Amitiza (Lubiprostone) 8 Mcg Capsule 1 Cap PO BID 05/07/18 Reported Pepcid (Famotidine) 20 Mg Tablet 20 Mg PO BID 04/03/18 Rx Levsin-Sl (Hyoscyamine Sulfate) 0.125 Mg Tab.subl 1-2 Tab SL PRN Q4HRS PRN 04/03/18 Rx Toprol Xl (Metoprolol Succinate) 50 Mg Tab.er.24h 1 Tab PO DAILY 07/18/16 Reported Impression . note dictated, repeat cxr resp status is compensated SIMEON Knox MD May 13, 2018 10:22
--- NOTE | 2018-05-13 10:59 | RAD ---
PQRS Compliance Statement: One or more of the following individualized dose reduction techniques were utilized for this examination: 1. Automated exposure control 2. Adjustment of the mA and/or kV according to patient size 3. Use of iterative reconstruction technique CT ANGIOGRAPHY ABD AND PELVIS Clinical Indication: ABD PAIN, mesenteric artery stenosis. Comparison: MRA abdomen 05/11/2018. TECHNIQUE: Helical CT imaging of the abdomen and pelvis is performed after 90 cc of Omnipaque [address] angiogram protocol. 3-D MIP and volume rendering reconstructions of the abdominal aorta and its branches. Findings: Atherosclerotic calcification and high-grade stenosis at the origin of the celiac artery. The superior mesenteric arteries patent. Atherosclerotic calcification and moderate stenosis at the origin of the right renal artery. Atherosclerotic calcification and high-grade stenosis in the proximal left renal artery. There is severe atherosclerotic calcification of the distal infrarenal abdominal aorta. There is no aneurysm. Atherosclerotic calcification and mild narrowing of the right common iliac artery. Atherosclerotic calcification and severe narrowing of the proximal left common iliac artery. There is moderate disease of the bilateral external iliac arteries. Visualized femoral arteries are patent. Moderate consolidations in the posterior lower lobes bilaterally. There is mild wall thickening of the distal esophagus. The cardiac size is normal. Trace pericardial fluid. Liver, gallbladder, and arterial phase spleen are normal. No peripancreatic inflammation. The pancreatic duct is dilated. Adrenal gland hyperplasia. Cortical thinning of the kidneys. No hydronephrosis. Cannot exclude mild wall thickening of the distal stomach. The stomach is not well distended, limiting evaluation. No dilated small bowel. There is a small tortuous enhancing artery in the distal rectum. Correlate for any rectal bleeding. There is moderate descending and sigmoid colon diverticulosis. Moderate colon stool volume. No colon wall thickening is identified. Appendix is not identified, no secondary signs of appendicitis. Urinary bladder is normal. Hysterectomy. No pelvic free fluid. No compression fracture of the lumbar spine. IMPRESSION: 1. Atherosclerotic disease. 2. 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 3. Moderate stenosis at the origin of the right renal artery. High-grade stenosis in the proximal left renal artery. 4. Severe narrowing of the proximal left common iliac artery. 5. Moderate consolidations in the bilateral lower lobes posteriorly. Considerations include atelectasis, pneumonia, or aspiration. 6. Mild wall thickening of the distal esophagus. Considerations include esophagitis or Rees's esophagus. 7. Cannot exclude mild wall thickening of the distal stomach, correlate for gastritis. 8. Tortuous enhancing artery in the distal rectum. Correlate for any rectal bleeding. 9. Moderate distal colon diverticulosis without diverticulitis. Electronically signed by: Derik Quintero MD (05/13/2018 10:56 AM) [id number]
--- NOTE | 2018-05-13 11:17 | PDOC ---
Subjective: Subjective: On commode - she says she doesn't know if she's had a bowel movement yet and asks me to look - soft light brown stool present. Says she ate better this morning. Wants to know why no one has an answer for why she's sick. Objective: Vital Signs: Vital Signs Date Time Temp Pulse Resp B/P (MAP) Pulse Ox O2 Delivery O2 Flow Rate FiO2 05/13/18 10:41 98 Room Air 05/13/18 08:59 108 144/72 05/13/18 08:15 97.6 16 97.6 Imaging: CTA A/P IMPRESSION: 1. Atherosclerotic disease. 2. 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 3. Moderate stenosis at the origin of the right renal artery. High-grade stenosis in the proximal left renal artery. 4. Severe narrowing of the proximal left common iliac artery. 5. Moderate consolidations in the bilateral lower lobes posteriorly. Considerations include atelectasis, pneumonia, or aspiration. 6. Mild wall thickening of the distal esophagus. Considerations include esophagitis or Rees's esophagus. 7. Cannot exclude mild wall thickening of the distal stomach, correlate for gastritis. 8. Tortuous enhancing artery in the distal rectum. Correlate for any rectal bleeding. 9. Moderate distal colon diverticulosis without diverticulitis. PE: GEN: NAD, on commode LUNGS: room air NEURO/PSYCH: A & O 3 but poor historian A/P: Chronic abd pain Constipation - resolved Abnormal CTA - high-grade stenosis of celiac artery -- She's still unclear if she's stooling - I saw stool in commode. Additional CTA findings noted (esophagitis, gastritis, tortuous artery in distal rectum). Is on PPI and not bleeding. Await vascular thoughts. VIVIAN MOREL May 13, 2018 11:17
[2018-05-13 11:32] VITALS: BP 126/63
--- NOTE | 2018-05-13 12:01 | PDOC ---
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 dysphagia concerns of silent aspiration History of Present Illness History of Present Illness Complaining of abdominal pain which is the most bothersome for her. She describes mostly as abdominal cramps. Getting morphine 4 mg which helps with the pain Started also on Bentyl by GI is getting that scheduled Some constipation that has since resolved I did provide her multiple imaging copies, and I reviewed together with her with RN at bedside MRI shows acute stroke. Neuro exam is nonfocal but she is very slow to speech and very weak. She does not want to go to snu or rehabilitation. She lives alone at home and uses some assistive desire device. She has a daughter which lives a few miles and plans to move closer to [facility] for help if needed urine culture is negative-I have reviewed Discussed the case with GI, unlikely mesenteric ischemia, CT angiogram of abdomen and pelvis reviewed Celiac artery is blocked 90% although she has good collaterals. Diagnosis of functional abdominal pain otherwise - has had extensive workup in many other facilities in the recent past PLAN: I will start working on discharge Start MS [place] 15 twice a day with Percocets for breakthrough pain If pain otherwise controlled, then home with home health tomorrow She is refusing SNU or rehabilitation Did consult [facility]-some notes about concerns of aspiration pneumonitis last night Pulmonary now got involved Discussed with [facility] and RN Vitals Vitals Vital Signs Date Time Temp Pulse Resp B/P (MAP) Pulse Ox O2 Delivery O2 Flow Rate FiO2 05/13/18 11:32 96.4 102 18 126/63 (84) 95 Room Air 96.4 Physical Exam General: Alert, No acute distress Heart: Regular rate Lungs: Wheezing, Crackles, Other (coarse lung sounds b/l) Abdomen: Normal bowel sounds, Soft, No masses, Other Extremities: No edema Skin: No rashes, No significant lesion Labs LABS Laboratory Tests Test 05/13/18 04:15 White Blood Count 6.3 x10^3/uL (4.0-11.0) Red Blood Count 4.04 x10^6/uL (3.50-5.40) Hemoglobin 12.3 g/dL (12.0-15.5) Hematocrit 35.8 % (36.0-47.0) Mean Corpuscular Volume 89 fL (79-100) Mean Corpuscular Hemoglobin 31 pg (25-35) Mean Corpuscular Hemoglobin Concent 34 g/dL (31-37) Red Cell Distribution Width 13.6 % (11.5-14.5) Platelet Count 291 x10^3/uL (140-400) Neutrophils (%) (Auto) 94 % (31-73) Lymphocytes (%) (Auto) 4 % (24-48) Monocytes (%) (Auto) 1 % (0-9) Eosinophils (%) (Auto) 0 % (0-3) Basophils (%) (Auto) 0 % (0-3) Neutrophils # (Auto) 6.0 x10^3uL (1.8-7.7) Lymphocytes # (Auto) 0.3 x10^3/uL (1.0-4.8) Monocytes # (Auto) 0.1 x10^3/uL (0.0-1.1) Eosinophils # (Auto) 0.0 x10^3/uL (0.0-0.7) Basophils # (Auto) 0.0 x10^3/uL (0.0-0.2) Sodium Level 138 mmol/L (136-145) Potassium Level 4.3 mmol/L (3.5-5.1) Chloride Level 101 mmol/L (98-107) Carbon Dioxide Level 29 mmol/L (21-32) Anion Gap 8 (6-14) Blood Urea Nitrogen 11 mg/dL (7-20) Creatinine 0.9 mg/dL (0.6-1.0) Estimated GFR (Cockcroft-Gault) 73.1 BUN/Creatinine Ratio 12 (6-20) Glucose Level 164 mg/dL (70-99) Calcium Level 9.7 mg/dL (8.5-10.1) Total Bilirubin 0.3 mg/dL (0.2-1.0) Aspartate Amino Transf (AST/SGOT) 16 U/L (15-37) Alanine Aminotransferase (ALT/SGPT) 13 U/L (14-59) Alkaline Phosphatase 86 U/L (46-116) Total Protein 7.5 g/dL (6.4-8.2) Albumin 2.6 g/dL (3.4-5.0) Albumin/Globulin Ratio 0.5 (1.0-1.7) Review of Systems Review of Systems abd pain,, weak, otherwise negative ROS Comment Review of Relevant I have reviewed the following items jamila (where applicable) has been applied. Labs Laboratory Tests Test 05/11/18 13:35 05/12/18 05:10 05/13/18 04:15 Clostridium difficile Toxin (PCR) Negative (Negative) White Blood Count 8.8 x10^3/uL (4.0-11.0) 6.3 x10^3/uL (4.0-11.0) Red Blood Count 4.07 x10^6/uL (3.50-5.40) 4.04 x10^6/uL (3.50-5.40) Hemoglobin 12.4 g/dL (12.0-15.5) 12.3 g/dL (12.0-15.5) Hematocrit 36.4 % (36.0-47.0) 35.8 % (36.0-47.0) Mean Corpuscular Volume 89 fL (79-100) 89 fL (79-100) Mean Corpuscular Hemoglobin 30 pg (25-35) 31 pg (25-35) Mean Corpuscular Hemoglobin Concent 34 g/dL (31-37) 34 g/dL (31-37) Red Cell Distribution Width 14.0 % (11.5-14.5) 13.6 % (11.5-14.5) Platelet Count 279 x10^3/uL (140-400) 291 x10^3/uL (140-400) Neutrophils (%) (Auto) 83 % (31-73) 94 % (31-73) Lymphocytes (%) (Auto) 6 % (24-48) 4 % (24-48) Monocytes (%) (Auto) 8 % (0-9) 1 % (0-9) Eosinophils (%) (Auto) 3 % (0-3) 0 % (0-3) Basophils (%) (Auto) 0 % (0-3) 0 % (0-3) Neutrophils # (Auto) 7.2 x10^3uL (1.8-7.7) 6.0 x10^3uL (1.8-7.7) Lymphocytes # (Auto) 0.6 x10^3/uL (1.0-4.8) 0.3 x10^3/uL (1.0-4.8) Monocytes # (Auto) 0.7 x10^3/uL (0.0-1.1) 0.1 x10^3/uL (0.0-1.1) Eosinophils # (Auto) 0.3 x10^3/uL (0.0-0.7) 0.0 x10^3/uL (0.0-0.7) Basophils # (Auto) 0.0 x10^3/uL (0.0-0.2) 0.0 x10^3/uL (0.0-0.2) Sodium Level 137 mmol/L (136-145) 138 mmol/L (136-145) Potassium Level 4.6 mmol/L (3.5-5.1) 4.3 mmol/L (3.5-5.1) Chloride Level 100 mmol/L (98-107) 101 mmol/L (98-107) Carbon Dioxide Level 30 mmol/L (21-32) 29 mmol/L (21-32) Anion Gap 7 (6-14) 8 (6-14) Blood Urea Nitrogen 12 mg/dL (7-20) 11 mg/dL (7-20) Creatinine 0.8 mg/dL (0.6-1.0) 0.9 mg/dL (0.6-1.0) Estimated GFR (Cockcroft-Gault) 83.7 73.1 BUN/Creatinine Ratio 15 (6-20) 12 (6-20) Glucose Level 119 mg/dL (70-99) 164 mg/dL (70-99) Calcium Level 9.1 mg/dL (8.5-10.1) 9.7 mg/dL (8.5-10.1) Total Bilirubin 0.4 mg/dL (0.2-1.0) 0.3 mg/dL (0.2-1.0) Aspartate Amino Transf (AST/SGOT) 19 U/L (15-37) 16 U/L (15-37) Alanine Aminotransferase (ALT/SGPT) 13 U/L (14-59) 13 U/L (14-59) Alkaline Phosphatase 103 U/L (46-116) 86 U/L (46-116) Total Protein 7.5 g/dL (6.4-8.2) 7.5 g/dL (6.4-8.2) Albumin 2.7 g/dL (3.4-5.0) 2.6 g/dL (3.4-5.0) Albumin/Globulin Ratio 0.6 (1.0-1.7) 0.5 (1.0-1.7) Laboratory Tests Test 05/13/18 04:15 White Blood Count 6.3 x10^3/uL (4.0-11.0) Red Blood Count 4.04 x10^6/uL (3.50-5.40) Hemoglobin 12.3 g/dL (12.0-15.5) Hematocrit 35.8 % (36.0-47.0) Mean Corpuscular Volume 89 fL (79-100) Mean Corpuscular Hemoglobin 31 pg (25-35) Mean Corpuscular Hemoglobin Concent 34 g/dL (31-37) Red Cell Distribution Width 13.6 % (11.5-14.5) Platelet Count 291 x10^3/uL (140-400) Neutrophils (%) (Auto) 94 % (31-73) Lymphocytes (%) (Auto) 4 % (24-48) Monocytes (%) (Auto) 1 % (0-9) Eosinophils (%) (Auto) 0 % (0-3) Basophils (%) (Auto) 0 % (0-3) Neutrophils # (Auto) 6.0 x10^3uL (1.8-7.7) Lymphocytes # (Auto) 0.3 x10^3/uL (1.0-4.8) Monocytes # (Auto) 0.1 x10^3/uL (0.0-1.1) Eosinophils # (Auto) 0.0 x10^3/uL (0.0-0.7) Basophils # (Auto) 0.0 x10^3/uL (0.0-0.2) Sodium Level 138 mmol/L (136-145) Potassium Level 4.3 mmol/L (3.5-5.1) Chloride Level 101 mmol/L (98-107) Carbon Dioxide Level 29 mmol/L (21-32) Anion Gap 8 (6-14) Blood Urea Nitrogen 11 mg/dL (7-20) Creatinine 0.9 mg/dL (0.6-1.0) Estimated GFR (Cockcroft-Gault) 73.1 BUN/Creatinine Ratio 12 (6-20) Glucose Level 164 mg/dL (70-99) Calcium Level 9.7 mg/dL (8.5-10.1) Total Bilirubin 0.3 mg/dL (0.2-1.0) Aspartate Amino Transf (AST/SGOT) 16 U/L (15-37) Alanine Aminotransferase (ALT/SGPT) 13 U/L (14-59) Alkaline Phosphatase 86 U/L (46-116) Total Protein 7.5 g/dL (6.4-8.2) Albumin 2.6 g/dL (3.4-5.0) Albumin/Globulin Ratio 0.5 (1.0-1.7) Microbiology 05/11/18 Fecal Leukocyte Stain - Final, Complete 05/08/18 Urine Culture - Final, Complete 05/08/18 Urine Culture Result 1 (CARLIE) - Final, Complete Medications Current Medications Pantoprazole Sodium (PROTONIX VIAL for IV PUSH) 40 mg DAILYAC IVP ; Start 05/07 at 16:30; Stop 05/07/18 at 18:45; Status DC Albuterol Sulfate (Ventolin Neb Soln) 2.5 mg PRN Q4HRS PRN NEB SHORTNESS OF BREATH; Start 05/07/18 at 15:45 Albuterol/ Ipratropium (Duoneb) 3 ml RTQID NEB Last administered on 05/13/18at 10:41; Start 05/07/18 at 16:00 Levofloxacin/ Dextrose (Levaquin Per Pharmacy) 1 each PRN DAILY PRN MC SEE COMMENTS; Start 05/07/18 at 16:00 Levofloxacin/ Dextrose 50 ml @ 50 mls/hr Q24H IV Last administered on at 17:42; Start 05/07/18 at 17:00; Stop 05/09/18 at 15:06; Status DC Gadobutrol (Gadavist) 6 mmol 1X ONCE IV Last administered on 05/07/18at 16:43 ; Start 05/07/18 at 16:30; Stop 05/07/18 at 16:34; Status DC Oxycodone/ Acetaminophen (Percocet 5/325) 2 tab PRN Q6HRS PRN PO PAIN MOD TO SEV Last administered on 05/10/18at 22:00; Start 05/07/18 at 17:15; Stop 05/12 at 18:58; Status DC Oxycodone/ Acetaminophen (Percocet 5/325) 1 tab PRN Q4HRS PRN PO PAIN MILD Last administered on 05/12/18 01:24; Start 05/07/18 at 17:15 Aspirin (Jovany Aspirin) 325 mg DAILYWBKFT PO Last administered on 05/08/18 08 :30; Start 05/07/18 at 18:30; Stop 05/10/18 at 14:06; Status DC Famotidine (Pepcid) 20 mg BID PO Last administered on 05/08/18 08:29; Start 05/07/18 at 21:00; Stop 05/08/18 at 11:53; Status DC Furosemide (Lasix) 20 mg DAILY PO Last administered on 05/13/18 08:59; Start 05/07/18 at 19:00 Potassium Chloride (Klor-Con) 10 meq DAILY PO Last administered on 05/13/18 08:59; Start 05/07/18 at 19:00 Ketotifen Fumarate (Zaditor) 1 drop BID OU Last administered on 05/13/18 07: 36; Start 05/07/18 at 21:00 Pantoprazole Sodium (Protonix) 40 mg DAILYAC PO Last administered on 08:59; Start 05/07/18 at 19:00 Amlodipine Besylate (Norvasc) 2.5 mg DAILY PO Last administered on 05/13/18 08:59; Start 05/07/18 at 19:00 Amlodipine Besylate (Norvasc) 2.5 mg 1X ONCE PO ; Start 05/07/18 at 19:00; Stop 05/07/18 at 19:01; Status DC Zolpidem Tartrate (Ambien) 5 mg PRN QHS PRN PO INSOMNIA Last administered on 21:03; Start 05/07/18 at 21:15 Morphine Sulfate (Morphine Sulfate) 4 mg PRN Q2HR PRN IV PAIN Last administered on 05/13/18 07:36; Start 05/08/18 at 10:30 Docusate Sodium (Colace) 100 mg DAILY PO Last administered on 05/13/18 08:58 ; Start 05/08/18 at 11:00 Senna/Docusate Sodium (Senna Plus) 1 tab DAILY PRN PO CONSTIPATION, 2ND CHOICE Last administered on 05/12/18 08:47; Start 05/08/18 at 10:30 Polyethylene Glycol (miraLAX PACKET) 17 gm PRN DAILY PRN PO CONSTIPATION, 1ST CHOICE Last administered on 05/08/18 10:39; Start 05/08/18 at 10:30; Stop at 20:16; Status DC Atorvastatin Calcium (Lipitor) 10 mg QHS PO Last administered on 05/12/18 20: 57; Start 05/08/18 at 21:00 Famotidine (Pepcid) 20 mg DAILY PO ; Start 05/09/18 at 09:00; Stop 05/09/18 at 09:00; Status DC Psyllium Hydrophilic Mucilloid (Metamucil Fiber Packet) 1 pkt DAILY PO Last administered on 05/13/18 08:58; Start 05/08/18 at 13:00 Lactobacillus Rhamnosus (Culturelle) 1 cap BID PO Last administered on 08:59; Start 05/08/18 at 21:00 Lactulose (LACTULOSE 300ML for RECTAL) 200 gm 1X ONCE SD ; Start 05/09/18 at 12:45; Stop 05/09/18 at 12:46; Status UNV Lactulose (Lactulose) 20 gm PRN DAILY PRN PO CONSTIPATION 3RD CHOICE Last administered on 05/11/18 08:10; Start 05/09/18 at 12:45 Simethicone (Gas-X) 80 mg PRN AFTMEALHC PRN PO GAS / BLOATING Last administered on 05/09/18 14:13; Start 05/09/18 at 12:45 Levofloxacin (Levaquin) 250 mg QHS PO Last administered on 05/12/18 20:57; Start 05/09/18 at 21:00 Polyethylene Glycol (miraLAX PACKET) 17 gm PRN TID PRN PO CONSTIPATION, 1ST CHOICE Last administered on 05/10/18at 22:00; Start 05/09/18 at 20:30 Mineral Oil (Mineral Oil) 30 ml PRN DAILY PRN PO CONSTIPATION, UNREL BY OTHERS Last administered on 05/10/18at 13:36; Start 05/10/18 at 13:00 Aspirin (Ecotrin) 81 mg DAILYWBKFT PO Last administered on 05/13/18at 08:59; Start 05/10/18 at 14:15 Sucralfate (Carafate) 1 gm PRN BFRMEALHC PRN PO STOMACH PAIN Last administered on 05/12/18 08:47; Start 05/10/18 at 14:15 Alprazolam (Xanax) 0.25 mg PRN BID PRN PO ANXIETY / AGITATION Last administered on 05/11/18at 08:10; Start 05/10/18 at 18:15 Influenza Virus Vaccine (Afluria Trivalent 2596-1125 Syringe) 0.5 ml ONCE ONCE VAX IM Last administered on 05/11/18at 17:29; Start 05/11/18 at 10:30; Stop 05/11/18 at 10:31; Status DC Lubiprostone (Amitiza) 8 mcg BIDWMEALS PO Last administered on 05/13/18at 08:59 ; Start 05/11/18 at 17:00 Gadobutrol (Gadavist) 7.5 mmol 1X ONCE IV Last administered on 05/11/18at 14: 50; Start 05/11/18 at 14:30; Stop 05/11/18 at 14:31; Status DC Prednisone (Prednisone) 20 mg 1X ONCE PO Last administered on 05/12/18at 18:13 ; Start 05/12/18 at 18:00; Stop 05/12/18 at 18:01; Status DC Prednisone (Prednisone) 20 mg 1X ONCE PO Last administered on 05/12/18at 23:44 ; Start 05/13/18 at 00:00; Stop 05/13/18 at 00:01; Status DC Prednisone (Prednisone) 20 mg 1X ONCE PO Last administered on 05/13/18at 06:01 ; Start 05/13/18 at 06:00; Stop 05/13/18 at 06:01; Status DC Diphenhydramine HCl (Benadryl) 50 mg 1X ONCE PO Last administered on at 08:11; Start 05/13/18 at 07:00; Stop 05/13/18 at 07:01; Status DC Dicyclomine HCl (Bentyl) 10 mg TID PO Last administered on 05/13/18at 08:59; Start 05/12/18 at 14:00 Iohexol (Omnipaque 300 Mg/ml) 90 ml 1X ONCE IV Last administered on at 08:38; Start 05/13/18 at 07:15; Stop 05/13/18 at 07:18; Status DC Active Scripts Active Pepcid (Famotidine) 20 Mg Tablet 20 Mg PO BID Levsin-Sl (Hyoscyamine Sulfate) 0.125 Mg Tab.subl 1-2 Tab SL PRN Q4HRS PRN Reported Protonix (Pantoprazole Sodium) 20 Mg Tablet.dr 2 Tab PO DAILY Amlodipine Besylate 5 Mg Tablet 5 Mg PO DAILY Patanol (Olopatadine Hcl) 5 Ml Drops 1 Drop EACHEYE BID Lasix (Furosemide) 20 Mg Tablet 1 Tab PO DAILY Klor-Con 10 (Potassium Chloride) 10 Meq Tablet.er 1 Tab PO DAILY Amitiza (Lubiprostone) 8 Mcg Capsule 1 Cap PO BID Toprol Xl (Metoprolol Succinate) 50 Mg Tab.er.24h 1 Tab PO DAILY Vitals/I & O Vital Sign - Last 24 Hours 05/12/18 05/12/18 05/12/18 05/12/18 12:39 15:00 16:32 19:00 Temp 99.1 97.9 99.1 97.9 Pulse 107 107 Resp 18 18 B/P (MAP) 122/71 (88) 142/70 (94) Pulse Ox 97 97 98 O2 Delivery Room Air Room Air Room Air Room Air 05/12/18 05/12/18 05/13/18 05/13/18 20:00 23:00 03:10 06:43 Temp 99.7 97.5 99.7 97.5 Pulse 101 99 Resp 16 16 B/P (MAP) 135/75 (95) 141/68 (92) Pulse Ox 99 99 98 O2 Delivery Room Air Room Air Room Air Room Air 05/13/18 05/13/18 05/13/1818 08:00 08:15 08:59 10:41 Temp 97.6 97.6 Pulse 108 108 Resp 16 B/P (MAP) 144/72 (96) 144/72 Pulse Ox 96 98 O2 Delivery Room Air Room Air Room Air 05/13/18 11:32 Temp 96.4 96.4 Pulse 102 Resp 18 B/P (MAP) 126/63 (84) Pulse Ox 95 O2 Delivery Room Air Intake and Output 05/12/18 05/12/18 05/13/18 15:00 23:00 07:00 Intake Total 250 ml Balance 250 ml ELEAZAR DEWEY MD May 13, 2018 12:01
[2018-05-13] MEDS ORDERED: oxyCODONE/APAP 10/325 1 TAB TABLET PO PRN (12:15)
[2018-05-13] MEDS: MORPHINE ER 15 MG TABLET.ER PO SCH ×2 (13:12→20:10)
[2018-05-13 15:00] VITALS: BP 161/70
--- NOTE | 2018-05-13 15:53 | PDOC ---
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 Small subacute infarct along the right ventricle. Metabolic encephalopathy. Confusion. UTI. HTN. CHF EF 45%. Abdominal pain. Diverticulosis. Rees's esophagus? Celiac A high grade stenosis. Left proximal renal A high grade stenosis. left common iliac A severe narrowing. Right renal A moderate stenosis. Old small lacunar infarcts near right frontal horn and right occipital lobe. 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 Brain atrophy, cannabinoids and CVA contributed. Cannabinoid use/abuse x 50 years. Smoking x 50 years. Benzo positive. RECOMMENDATIONS/PLAN: ASA 325 mg daily. Lipitor 10 mg HS. Keppra 500 mg bid. Treat UTI. Treat medical diseases. Consulted GI. Consulted Vascular Surgery multiple A stenoses. Patient education for marijuana and smoking cessation. Discussed in all detail again with her and her daughter at bedside on 05/11/18. HISTORY OF THE PRESENT ILLNESS: 77-y-old AA female patient with Hx of marijuana use/abuse and smoking for about 50 years. She had a seizure on 05/07/18 described by her daughter as LOC, eyes rolling back to her head, foam from her mouth, stiffness with shaking movements in her UE mostly for several minutes. Postictally, she was confused and unable to recognize her surroundings. She had 4 similar episodes in the past 1.5 years per her daughter. PMH: HTN, mild valvular heart disease? Seizure, UTI, diverticulosis. PAST SURGERY HISTORY: Tonsillectomy Appendectomy, Hysterectomy ALLERGY: Reviewed. MEDICATIONS: Refer to [facility] FAMILY HISTORY: Non contributory. No seizures. SOCIAL HISTORY: Lives at home. he smokes < 1 pack of cigarettes a day for 50 years. She drinks alcohol occasionally. She uses marijuana on a daily basis for 50 years.. REVIEW OF SYSTEMS: Constitutional: No cachexia. Head: No recent traumatic brain or head injury. Skin: No edema, or rash. Ear: No infection. Eyes: No vision loss or color blindness. Nose: No bleeding or purulent discharges. Hearing: Mild hearing decrease. Neck: No injury. Breast: No history of cancer, masses,or discharges. Cardiac: HTN. Pulmonary: COPD? longstanding smoking. GI: Diverticulosis. Urinary/genital: UTI. Endocrinologic: No cousin face, craniofacial dysmorphism, polydactyly. Skeletomuscular: No muscular atrophy, deformity. Neurological: see HP. Psychiatric: Substance and drug use/abuse. Otherwise, not [id number] review of systems. PHYSICAL EXAMINATION: General appearance is in subacute distress. HEENT: Normocephalic and nontraumatic. Eyes, nose, ears, and throat are unremarkable. Neck is supple. No lymphadenopathy. No crepitus. Cardiovascular: S1, S2, regular rate and rhythm. Pulmonary: Clear to auscultation bilaterally. Abdomen: Bowel sounds are positive. Extremities: No rash, lesions, or edema. No restriction of range of motion NEUROLOGICAL EXAMINATION: Awake. Oriented to time, place and person. PERRL. EOMI. CN: no focal findings. Muscle tone: within normal. Muscle strength: 5- DTR: 1-2 Plantar reflex: Neutral response bilaterally Gait: Able to walk with a walker. Sensory exam: no abnormal findings. No acute cerebellar signs elicited. Objective Objective Vital Signs Date Time Temp Pulse Resp B/P (MAP) Pulse Ox O2 Delivery O2 Flow Rate FiO2 05/13/18 15:00 98.4 100 18 161/70 (100) 99 Room Air 98.4 Intake and Output 05/13/18 07:00 Intake Total 250 ml Balance 250 ml Intake Oral 250 ml # Voids 6 # Bowel Movements 3 Vitals Signs Vitals VS - Last 72 Hours, by Label Date Time Temp Pulse Resp B/P (MAP) Pulse Ox O2 Delivery O2 Flow Rate FiO2 05/13/18 15:00 98.4 100 18 161/70 (100) 99 Room Air 98.4 05/13/18 13:12 Room Air 05/13/18 11:32 96.4 102 18 126/63 (84) 95 Room Air 96.4 05/13/18 10:41 98 Room Air 05/13/18 08:59 108 144/72 05/13/18 08:15 97.6 108 16 144/72 (96) 96 Room Air 97.6 05/13/18 08:00 Room Air 05/13/18 06:43 98 Room Air 05/13/18 03:10 97.5 99 16 141/68 (92) 99 Room Air 97.5 05/12/18 23:00 99.7 101 16 135/75 (95) 99 Room Air 99.7 05/12/18 20:00 Room Air 05/12/18 19:00 97.9 107 18 142/70 (94) 98 Room Air 97.9 05/12/18 16:32 Room Air 05/12/18 15:00 99.1 107 18 122/71 (88) 97 Room Air 99.1 05/12/18 12:39 97 Room Air 05/12/18 11:00 98.6 101 18 124/74 (91) 96 Room Air 98.6 05/12/18 08:48 110 141/68 05/12/18 08:25 Room Air 05/12/18 08:20 94 Room Air 05/12/18 07:00 98.3 110 18 141/68 (92) 94 Room Air 98.3 Laboratory Laboratory Laboratory Tests Test 05/13/18 04:15 White Blood Count 6.3 x10^3/uL (4.0-11.0) Red Blood Count 4.04 x10^6/uL (3.50-5.40) Hemoglobin 12.3 g/dL (12.0-15.5) Hematocrit 35.8 % (36.0-47.0) Mean Corpuscular Volume 89 fL (79-100) Mean Corpuscular Hemoglobin 31 pg (25-35) Mean Corpuscular Hemoglobin Concent 34 g/dL (31-37) Red Cell Distribution Width 13.6 % (11.5-14.5) Platelet Count 291 x10^3/uL (140-400) Neutrophils (%) (Auto) 94 % (31-73) Lymphocytes (%) (Auto) 4 % (24-48) Monocytes (%) (Auto) 1 % (0-9) Eosinophils (%) (Auto) 0 % (0-3) Basophils (%) (Auto) 0 % (0-3) Neutrophils # (Auto) 6.0 x10^3uL (1.8-7.7) Lymphocytes # (Auto) 0.3 x10^3/uL (1.0-4.8) Monocytes # (Auto) 0.1 x10^3/uL (0.0-1.1) Eosinophils # (Auto) 0.0 x10^3/uL (0.0-0.7) Basophils # (Auto) 0.0 x10^3/uL (0.0-0.2) Sodium Level 138 mmol/L (136-145) Potassium Level 4.3 mmol/L (3.5-5.1) Chloride Level 101 mmol/L (98-107) Carbon Dioxide Level 29 mmol/L (21-32) Anion Gap 8 (6-14) Blood Urea Nitrogen 11 mg/dL (7-20) Creatinine 0.9 mg/dL (0.6-1.0) Estimated GFR (Cockcroft-Gault) 73.1 BUN/Creatinine Ratio 12 (6-20) Glucose Level 164 mg/dL (70-99) Calcium Level 9.7 mg/dL (8.5-10.1) Total Bilirubin 0.3 mg/dL (0.2-1.0) Aspartate Amino Transf (AST/SGOT) 16 U/L (15-37) Alanine Aminotransferase (ALT/SGPT) 13 U/L (14-59) Alkaline Phosphatase 86 U/L (46-116) Total Protein 7.5 g/dL (6.4-8.2) Albumin 2.6 g/dL (3.4-5.0) Albumin/Globulin Ratio 0.5 (1.0-1.7) Microbiology 05/11/18 Fecal Leukocyte Stain - Final, Complete 05/08/18 Urine Culture - Final, Complete 05/08/18 Urine Culture Result 1 (CARLIE) - Final, Complete Medication Medications Current Medications Diphenhydramine HCl (Benadryl) 50 mg 1X ONCE PO Last administered on at 08:11; Start 05/13/18 at 07:00; Stop 05/13/18 at 07:01; Status DC Iohexol (Omnipaque 300 Mg/ml) 90 ml 1X ONCE IV Last administered on at 08:38; Start 05/13/18 at 07:15; Stop 05/13/18 at 07:18; Status DC Morphine Sulfate (Ms Contin) 15 mg BID PO Last administered on 05/13/18at 13:12 ; Start 05/13/18 at 12:30 Oxycodone/ Acetaminophen (Percocet 10/325) 1 tab PRN Q4HRS PRN PO MODERATE- SEVERE pain; Start 05/13/18 at 12:15 Prednisone (Prednisone) 20 mg 1X ONCE PO Last administered on 05/12/18at 18:13 ; Start 05/12/18 at 18:00; Stop 05/12/18 at 18:01; Status DC Prednisone (Prednisone) 20 mg 1X ONCE PO Last administered on 05/12/18at 23:44 ; Start 05/13/18 at 00:00; Stop 05/13/18 at 00:01; Status DC Prednisone (Prednisone) 20 mg 1X ONCE PO Last administered on 05/13/18at 06:01 ; Start 05/13/18 at 06:00; Stop 05/13/18 at 06:01; Status DC Comment Review of Relevant I have reviewed the following items jamila (where applicable) has been applied. JUAN PABLO BARRIOS MD May 13, 2018 15:53
[2018-05-13 19:34] VITALS: BP 129/68
[2018-05-13] MEDS: ATORVASTATIN CALCIUM 10 MG TABLET. PO SCH (20:08)
[2018-05-13] MEDS: ZOLPIDEM 5 MG TABLET. PO PRN (20:09)
[2018-05-13] MEDS: POLYETHYLENE GLYCOL 3350 17 GM PACKET. PO PRN (20:19)
[2018-05-13] MEDS: SIMETHICONE 80 MG TAB.CHEW PO PRN (21:28)
[2018-05-13 23:30] VITALS: BP 138/46
[2018-05-14 03:00] VITALS: BP 143/67
[2018-05-14] MEDS: IPRATRPIUM/ALBUTEROL 0.5/2.5MG 3 ML NEBU. NEB SCH ×3 (06:58→16:00)
[2018-05-14 07:15] VITALS: BP 140/60
[2018-05-14] MEDS: KETOTIFEN FUMARATE 0.025% OPHTH SOLUTION BOTTLE. OU SCH (08:52)
[2018-05-14] MEDS ORDERED: DOCUSATE SODIUM 283 MG/5 ML ENEMA. PR ONE (09:00)
[2018-05-14] MEDS ORDERED: LACTULOSE 20 GM/30 ML SOLUTION. PO SCH (09:00)
[2018-05-14] MEDS ORDERED: SENNOSIDES/DOCUSATE 8.6/50MG TABLET. PO SCH (09:00)
[2018-05-14] MEDS: PANTOPRAZOLE 40 MG TABLET.DR. PO SCH (09:03)
[2018-05-14] MEDS: LUBIPROSTONE 8 MCG CAPSULE PO SCH ×2 (09:03→16:47)
[2018-05-14] MEDS: ASPIRIN ENTERIC COATED 81 MG TABLET.DR. PO SCH (09:04)
[2018-05-14] MEDS: LACTOBACILLUS RHAMNOSUS GG 1 CAPSULE. PO SCH (09:04)
[2018-05-14] MEDS: MORPHINE ER 15 MG TABLET.ER PO SCH (09:04)
[2018-05-14] MEDS: FUROSEMIDE 20 MG TABLET PO SCH (09:04)
[2018-05-14] MEDS: amLODIPine BESYLATE 2.5 MG TABLET PO SCH (09:04)
[2018-05-14] MEDS: DICYCLOMINE HCL 10 MG CAPSULE PO SCH ×2 (09:04→16:47)
[2018-05-14] MEDS: POTASSIUM CHLORIDE 10 MEQ TABLET.ER. PO SCH (09:05)
[2018-05-14] MEDS: DOCUSATE SODIUM 100 MG CAPSULE. PO SCH (09:05)
[2018-05-14] MEDS: oxyCODONE/APAP 5/325 1 TAB TABLET PO PRN ×2 (09:06→13:22)
[2018-05-14] MEDS: PSYLLIUM HUSK (SUGAR FREE) 1 PKT PACKET PO SCH (09:06)
--- NOTE | 2018-05-14 09:34 | PDOC ---
PROGRESS NOTES Subjective Subjective Pt on commode. Pt reports she is feeling better, but again still with pain worse after eating breakfast this morning. Spoke with daughter, Karen and she reports pt had a "long bowel movement the other day, it was like a chitlin" while here in the hospital. Her CTA revealed celiac, renal and iliac arterial disease. 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 Through evaluation, these findings are likely not correlated with her current pain. Imaging does not show mesenteric artery disease and her pain is uncharacteristic of mesenteric ischemia. She is to follow up with us in a couple weeks to address the arterial disease previously mentioned, appt has been made and will be on her discharge instructions. I discussed this with pt and called daughter, Karen, who both exhibited understanding and agreed with the said plan. Comment Review of Relevant I have reviewed the following items jamila (where applicable) has been applied. Labs Laboratory Tests Test 05/13/18 04:15 White Blood Count 6.3 x10^3/uL (4.0-11.0) Red Blood Count 4.04 x10^6/uL (3.50-5.40) Hemoglobin 12.3 g/dL (12.0-15.5) Hematocrit 35.8 % (36.0-47.0) Mean Corpuscular Volume 89 fL (79-100) Mean Corpuscular Hemoglobin 31 pg (25-35) Mean Corpuscular Hemoglobin Concent 34 g/dL (31-37) Red Cell Distribution Width 13.6 % (11.5-14.5) Platelet Count 291 x10^3/uL (140-400) Neutrophils (%) (Auto) 94 % (31-73) Lymphocytes (%) (Auto) 4 % (24-48) Monocytes (%) (Auto) 1 % (0-9) Eosinophils (%) (Auto) 0 % (0-3) Basophils (%) (Auto) 0 % (0-3) Neutrophils # (Auto) 6.0 x10^3uL (1.8-7.7) Lymphocytes # (Auto) 0.3 x10^3/uL (1.0-4.8) Monocytes # (Auto) 0.1 x10^3/uL (0.0-1.1) Eosinophils # (Auto) 0.0 x10^3/uL (0.0-0.7) Basophils # (Auto) 0.0 x10^3/uL (0.0-0.2) Sodium Level 138 mmol/L (136-145) Potassium Level 4.3 mmol/L (3.5-5.1) Chloride Level 101 mmol/L (98-107) Carbon Dioxide Level 29 mmol/L (21-32) Anion Gap 8 (6-14) Blood Urea Nitrogen 11 mg/dL (7-20) Creatinine 0.9 mg/dL (0.6-1.0) Estimated GFR (Cockcroft-Gault) 73.1 BUN/Creatinine Ratio 12 (6-20) Glucose Level 164 mg/dL (70-99) Calcium Level 9.7 mg/dL (8.5-10.1) Total Bilirubin 0.3 mg/dL (0.2-1.0) Aspartate Amino Transf (AST/SGOT) 16 U/L (15-37) Alanine Aminotransferase (ALT/SGPT) 13 U/L (14-59) Alkaline Phosphatase 86 U/L (46-116) Total Protein 7.5 g/dL (6.4-8.2) Albumin 2.6 g/dL (3.4-5.0) Albumin/Globulin Ratio 0.5 (1.0-1.7) Microbiology 05/11/18 Fecal Leukocyte Stain - Final, Complete 05/08/18 Urine Culture - Final, Complete 05/08/18 Urine Culture Result 1 (CARLIE) - Final, Complete Medications Current Medications Pantoprazole Sodium (PROTONIX VIAL for IV PUSH) 40 mg DAILYAC IVP ; Start 05/07 at 16:30; Stop 05/07/18 at 18:45; Status DC Albuterol Sulfate (Ventolin Neb Soln) 2.5 mg PRN Q4HRS PRN NEB SHORTNESS OF BREATH; Start 05/07/18 at 15:45 Albuterol/ Ipratropium (Duoneb) 3 ml RTQID NEB Last administered on 05/14/18at 06:58; Start 05/07/18 at 16:00 Levofloxacin/ Dextrose (Levaquin Per Pharmacy) 1 each PRN DAILY PRN MC SEE COMMENTS; Start 05/07/18 at 16:00 Levofloxacin/ Dextrose 50 ml @ 50 mls/hr Q24H IV Last administered on at 17:42; Start 05/07/18 at 17:00; Stop 05/09/18 at 15:06; Status DC Gadobutrol (Gadavist) 6 mmol 1X ONCE IV Last administered on 05/07/18at 16:43 ; Start 05/07/18 at 16:30; Stop 05/07/18 at 16:34; Status DC Oxycodone/ Acetaminophen (Percocet 5/325) 2 tab PRN Q6HRS PRN PO PAIN MOD TO SEV Last administered on 05/10/18at 22:00; Start 05/07/18 at 17:15; Stop 05/12 at 18:58; Status DC Oxycodone/ Acetaminophen (Percocet 5/325) 1 tab PRN Q4HRS PRN PO PAIN MILD Last administered on 05/12/18at 01:24; Start 05/07/18 at 17:15 Aspirin (Jovany Aspirin) 325 mg DAILYWBKFT PO Last administered on 05/08/18at 08 :30; Start 05/07/18 at 18:30; Stop 05/10/18 at 14:06; Status DC Famotidine (Pepcid) 20 mg BID PO Last administered on 05/08/18at 08:29; Start 05/07/18 at 21:00; Stop 05/08/18 at 11:53; Status DC Furosemide (Lasix) 20 mg DAILY PO Last administered on 05/13/18at 08:59; Start 05/07/18 at 19:00 Potassium Chloride (Klor-Con) 10 meq DAILY PO Last administered on 05/13/18at 08:59; Start 05/07/18 at 19:00 Ketotifen Fumarate (Zaditor) 1 drop BID OU Last administered on 05/13/18 20: 10; Start 05/07/18 at 21:00 Pantoprazole Sodium (Protonix) 40 mg DAILYAC PO Last administered on 08:59; Start 05/07/18 at 19:00 Amlodipine Besylate (Norvasc) 2.5 mg DAILY PO Last administered on 05/13/18 08:59; Start 05/07/18 at 19:00 Amlodipine Besylate (Norvasc) 2.5 mg 1X ONCE PO ; Start 05/07/18 at 19:00; Stop 05/07/18 at 19:01; Status DC Zolpidem Tartrate (Ambien) 5 mg PRN QHS PRN PO INSOMNIA Last administered on 20:09; Start 05/07/18 at 21:15 Morphine Sulfate (Morphine Sulfate) 4 mg PRN Q2HR PRN IV PAIN Last administered on 05/13/18 07:36; Start 05/08/18 at 10:30; Stop 05/13/18 at 12 :03; Status DC Docusate Sodium (Colace) 100 mg DAILY PO Last administered on 05/13/18 08:58 ; Start 05/08/18 at 11:00 Senna/Docusate Sodium (Senna Plus) 1 tab DAILY PRN PO CONSTIPATION, 2ND CHOICE Last administered on 05/12/18 08:47; Start 05/08/18 at 10:30; Stop 05/14/18 at 08:34; Status DC Polyethylene Glycol (miraLAX PACKET) 17 gm PRN DAILY PRN PO CONSTIPATION, 1ST CHOICE Last administered on 05/08/18at 10:39; Start 05/08/18 at 10:30; Stop at 20:16; Status DC Atorvastatin Calcium (Lipitor) 10 mg QHS PO Last administered on 05/13/18 20: 08; Start 05/08/18 at 21:00 Famotidine (Pepcid) 20 mg DAILY PO ; Start 05/09/18 at 09:00; Stop 05/09/18 at 09:00; Status DC Psyllium Hydrophilic Mucilloid (Metamucil Fiber Packet) 1 pkt DAILY PO Last administered on 05/13/18 08:58; Start 05/08/18 at 13:00 Lactobacillus Rhamnosus (Culturelle) 1 cap BID PO Last administered on 20:10; Start 05/08/18 at 21:00 Lactulose (LACTULOSE 300ML for RECTAL) 200 gm 1X ONCE MD ; Start 05/09/18 at 12:45; Stop 05/09/18 at 12:46; Status UNV Lactulose (Lactulose) 20 gm PRN DAILY PRN PO CONSTIPATION 3RD CHOICE Last administered on 05/11/18 08:10; Start 05/09/18 at 12:45; Stop 05/14/18 at 08 :35; Status DC Simethicone (Gas-X) 80 mg PRN AFTMEALHC PRN PO GAS / BLOATING Last administered on 05/13/18 21:28; Start 05/09/18 at 12:45 Levofloxacin (Levaquin) 250 mg QHS PO Last administered on 05/13/18 20:08; Start 05/09/18 at 21:00 Polyethylene Glycol (miraLAX PACKET) 17 gm PRN TID PRN PO CONSTIPATION, 1ST CHOICE Last administered on 05/13/18 20:19; Start 05/09/18 at 20:30 Mineral Oil (Mineral Oil) 30 ml PRN DAILY PRN PO CONSTIPATION, UNREL BY OTHERS Last administered on 05/10/18 13:36; Start 05/10/18 at 13:00 Aspirin (Ecotrin) 81 mg DAILYWBKFT PO Last administered on 05/13/18 08:59; Start 05/10/18 at 14:15 Sucralfate (Carafate) 1 gm PRN BFRMEALHC PRN PO STOMACH PAIN Last administered on 05/12/18 08:47; Start 05/10/18 at 14:15 Alprazolam (Xanax) 0.25 mg PRN BID PRN PO ANXIETY / AGITATION Last administered on 05/11/18 08:10; Start 05/10/18 at 18:15 Influenza Virus Vaccine (Afluria Trivalent [id number] Syringe) 0.5 ml ONCE ONCE VAX IM Last administered on 05/11/18 17:29; Start 05/11/18 at 10:30; Stop 05/11/18 at 10:31; Status DC Lubiprostone (Amitiza) 8 mcg BIDWMEALS PO Last administered on 05/13/18at 17:27 ; Start 05/11/18 at 17:00 Gadobutrol (Gadavist) 7.5 mmol 1X ONCE IV Last administered on 05/11/18at 14: 50; Start 05/11/18 at 14:30; Stop 05/11/18 at 14:31; Status DC Prednisone (Prednisone) 20 mg 1X ONCE PO Last administered on 05/12/18at 18:13 ; Start 05/12/18 at 18:00; Stop 05/12/18 at 18:01; Status DC Prednisone (Prednisone) 20 mg 1X ONCE PO Last administered on 05/12/18at 23:44 ; Start 05/13/18 at 00:00; Stop 05/13/18 at 00:01; Status DC Prednisone (Prednisone) 20 mg 1X ONCE PO Last administered on 05/13/18at 06:01 ; Start 05/13/18 at 06:00; Stop 05/13/18 at 06:01; Status DC Diphenhydramine HCl (Benadryl) 50 mg 1X ONCE PO Last administered on at 08:11; Start 05/13/18 at 07:00; Stop 05/13/18 at 07:01; Status DC Dicyclomine HCl (Bentyl) 10 mg TID PO Last administered on 05/13/18at 20:11; Start 05/12/18 at 14:00 Iohexol (Omnipaque 300 Mg/ml) 90 ml 1X ONCE IV Last administered on at 08:38; Start 05/13/18 at 07:15; Stop 05/13/18 at 07:18; Status DC Morphine Sulfate (Ms Contin) 15 mg BID PO Last administered on 05/13/18at 20:10 ; Start 05/13/18 at 12:30 Oxycodone/ Acetaminophen (Percocet 10/325) 1 tab PRN Q4HRS PRN PO MODERATE- SEVERE pain Last administered on 05/13/18at 17:27; Start 05/13/18 at 12:15 Senna/Docusate Sodium (Senna Plus) 1 tab DAILY PO ; Start 05/14/18 at 09:00 Docusate Sodium (Enemeez) 283 mg 1X ONCE MD ; Start 05/14/18 at 09:00; Stop 05/14/18 at 09:01; Status DC Lactulose (Lactulose) 20 gm DAILY PO ; Start 05/14/18 at 09:00 Active Scripts Active Pepcid (Famotidine) 20 Mg Tablet 20 Mg PO BID Levsin-Sl (Hyoscyamine Sulfate) 0.125 Mg Tab.subl 1-2 Tab SL PRN Q4HRS PRN Reported Protonix (Pantoprazole Sodium) 20 Mg Tablet.dr 2 Tab PO DAILY Amlodipine Besylate 5 Mg Tablet 5 Mg PO DAILY Patanol (Olopatadine Hcl) 5 Ml Drops 1 Drop EACHEYE BID Lasix (Furosemide) 20 Mg Tablet 1 Tab PO DAILY Klor-Con 10 (Potassium Chloride) 10 Meq Tablet.er 1 Tab PO DAILY Amitiza (Lubiprostone) 8 Mcg Capsule 1 Cap PO BID Toprol Xl (Metoprolol Succinate) 50 Mg Tab.er.24h 1 Tab PO DAILY Vitals/I & O Vital Sign - Last 24 Hours 05/13/18 05/13/18 05/13/18 05/13/18 10:41 11:32 13:12 15:00 Temp 96.4 98.4 96.4 98.4 Pulse 102 100 Resp 18 18 B/P (MAP) 126/63 (84) 161/70 (100) Pulse Ox 98 95 99 O2 Delivery Room Air Room Air Room Air Room Air 05/13/18 05/13/18 05/13/18 05/13/18 15:52 17:10 17:27 18:27 Resp 16 17 19 O2 Delivery Room Air Room Air Room Air Room Air 05/13/18 05/13/18 05/13/18 05/13/18 19:32 19:34 20:00 23:30 Temp 97.5 97.8 97.5 97.8 Pulse 107 79 Resp 18 18 B/P (MAP) 129/68 (88) 138/46 (76) Pulse Ox 98 96 95 O2 Delivery Room Air Room Air Room Air Room Air 05/14/18 05/14/18 05/14/18 03:00 07:00 07:15 Temp 97.5 97.8 97.5 97.8 Pulse 86 83 Resp 18 18 B/P (MAP) 143/67 (92) 140/60 (86) Pulse Ox 97 96 95 O2 Delivery Room Air Room Air Room Air Intake and Output 05/13/18 05/13/18 05/14/18 15:00 23:00 07:00 Intake Total 450 ml 240 ml Output Total 300 ml Balance 450 ml -60 ml MINGO HOUSTON May 14, 2018 09:34
--- NOTE | 2018-05-14 09:56 | PDOC ---
PULMONARY PROGRESS NOTES Vitals Vital Signs Date Time Temp Pulse Resp B/P (MAP) Pulse Ox O2 Delivery O2 Flow Rate FiO2 05/14/18 09:04 83 140/60 05/14/18 07:15 97.8 18 95 Room Air 97.8 Lungs: Wheezing, Crackles, Other (coarse lung sounds b/l) Labs Laboratory Tests Test 05/13/18 04:15 White Blood Count 6.3 x10^3/uL (4.0-11.0) Red Blood Count 4.04 x10^6/uL (3.50-5.40) Hemoglobin 12.3 g/dL (12.0-15.5) Hematocrit 35.8 % (36.0-47.0) Mean Corpuscular Volume 89 fL (79-100) Mean Corpuscular Hemoglobin 31 pg (25-35) Mean Corpuscular Hemoglobin Concent 34 g/dL (31-37) Red Cell Distribution Width 13.6 % (11.5-14.5) Platelet Count 291 x10^3/uL (140-400) Neutrophils (%) (Auto) 94 % (31-73) Lymphocytes (%) (Auto) 4 % (24-48) Monocytes (%) (Auto) 1 % (0-9) Eosinophils (%) (Auto) 0 % (0-3) Basophils (%) (Auto) 0 % (0-3) Neutrophils # (Auto) 6.0 x10^3uL (1.8-7.7) Lymphocytes # (Auto) 0.3 x10^3/uL (1.0-4.8) Monocytes # (Auto) 0.1 x10^3/uL (0.0-1.1) Eosinophils # (Auto) 0.0 x10^3/uL (0.0-0.7) Basophils # (Auto) 0.0 x10^3/uL (0.0-0.2) Sodium Level 138 mmol/L (136-145) Potassium Level 4.3 mmol/L (3.5-5.1) Chloride Level 101 mmol/L (98-107) Carbon Dioxide Level 29 mmol/L (21-32) Anion Gap 8 (6-14) Blood Urea Nitrogen 11 mg/dL (7-20) Creatinine 0.9 mg/dL (0.6-1.0) Estimated GFR (Cockcroft-Gault) 73.1 BUN/Creatinine Ratio 12 (6-20) Glucose Level 164 mg/dL (70-99) Calcium Level 9.7 mg/dL (8.5-10.1) Total Bilirubin 0.3 mg/dL (0.2-1.0) Aspartate Amino Transf (AST/SGOT) 16 U/L (15-37) Alanine Aminotransferase (ALT/SGPT) 13 U/L (14-59) Alkaline Phosphatase 86 U/L (46-116) Total Protein 7.5 g/dL (6.4-8.2) Albumin 2.6 g/dL (3.4-5.0) Albumin/Globulin Ratio 0.5 (1.0-1.7) Medications Active Scripts Medications Dose Route/Sig Max Daily Dose Days Date Category Protonix (Pantoprazole Sodium) 20 Mg Tablet.dr 2 Tab PO DAILY 05/07/18 Reported Amlodipine Besylate 5 Mg Tablet 5 Mg PO DAILY 05/07/18 Reported Patanol (Olopatadine Hcl) 5 Ml Drops 1 Drop EACHEYE BID 05/07/18 Reported Lasix (Furosemide) 20 Mg Tablet 1 Tab PO DAILY 05/07/18 Reported Klor-Con 10 (Potassium Chloride) 10 Meq Tablet.er 1 Tab PO DAILY 05/07/18 Reported Amitiza (Lubiprostone) 8 Mcg Capsule 1 Cap PO BID 05/07/18 Reported Pepcid (Famotidine) 20 Mg Tablet 20 Mg PO BID 04/03/18 Rx Levsin-Sl (Hyoscyamine Sulfate) 0.125 Mg Tab.subl 1-2 Tab SL PRN Q4HRS PRN 04/03/18 Rx Toprol Xl (Metoprolol Succinate) 50 Mg Tab.er.24h 1 Tab PO DAILY 07/18/16 Reported Impression . note dictated, repeat cxr resp status is compensated SIMEON Knox MD May 14, 2018 09:56
[2018-05-14] MEDS ORDERED: LEVO250T7 PO (11:02)
[2018-05-14] MEDS ORDERED: OXYC-411 PO (11:02)
[2018-05-14] MEDS ORDERED: Pantoprazole PO (11:02)
[2018-05-14] MEDS ORDERED: LACT1CAP19 PO (11:02)
[2018-05-14] MEDS ORDERED: AMLO2.5T3 PO (11:02)
[2018-05-14] MEDS ORDERED: DICY10CA3 PO (11:02)
[2018-05-14] MEDS ORDERED: ASPI-612 PO (11:02)
[2018-05-14] MEDS ORDERED: MORP15TA3 PO (11:02)
[2018-05-14] MEDS ORDERED: ALBU2.5V5 NEB (11:02)
[2018-05-14] MEDS ORDERED: SUCR1TAB35 PO (11:02)
[2018-05-14] MEDS ORDERED: ATOR10TA60 PO (11:02)
--- NOTE | 2018-05-14 11:07 | PDOC3 ---
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 dysphagia concerns of silent aspiration Brief Hospital Course Allergies Allergies Coded Allergies Type Severity Reaction Last Updated Verified lisinopril Allergy Severe throat closing 04/03/18 Yes Iodine and Iodide Containing Produc Allergy Intermediate OK IF PREMEDS Yes Penicillins Allergy Intermediate Rash 04/03/18 Yes Vital Signs Vital Signs Date Time Temp Pulse Resp B/P (MAP) Pulse Ox O2 Delivery O2 Flow Rate FiO2 05/14/18 10:51 Room Air 05/14/18 09:04 83 140/60 05/14/18 07:15 97.8 18 95 97.8 Lab Results Laboratory Tests Test 05/13/18 04:15 White Blood Count 6.3 x10^3/uL (4.0-11.0) Red Blood Count 4.04 x10^6/uL (3.50-5.40) Hemoglobin 12.3 g/dL (12.0-15.5) Hematocrit 35.8 % (36.0-47.0) Mean Corpuscular Volume 89 fL (79-100) Mean Corpuscular Hemoglobin 31 pg (25-35) Mean Corpuscular Hemoglobin Concent 34 g/dL (31-37) Red Cell Distribution Width 13.6 % (11.5-14.5) Platelet Count 291 x10^3/uL (140-400) Neutrophils (%) (Auto) 94 % (31-73) Lymphocytes (%) (Auto) 4 % (24-48) Monocytes (%) (Auto) 1 % (0-9) Eosinophils (%) (Auto) 0 % (0-3) Basophils (%) (Auto) 0 % (0-3) Neutrophils # (Auto) 6.0 x10^3uL (1.8-7.7) Lymphocytes # (Auto) 0.3 x10^3/uL (1.0-4.8) Monocytes # (Auto) 0.1 x10^3/uL (0.0-1.1) Eosinophils # (Auto) 0.0 x10^3/uL (0.0-0.7) Basophils # (Auto) 0.0 x10^3/uL (0.0-0.2) Sodium Level 138 mmol/L (136-145) Potassium Level 4.3 mmol/L (3.5-5.1) Chloride Level 101 mmol/L (98-107) Carbon Dioxide Level 29 mmol/L (21-32) Anion Gap 8 (6-14) Blood Urea Nitrogen 11 mg/dL (7-20) Creatinine 0.9 mg/dL (0.6-1.0) Estimated GFR (Cockcroft-Gault) 73.1 BUN/Creatinine Ratio 12 (6-20) Glucose Level 164 mg/dL (70-99) Calcium Level 9.7 mg/dL (8.5-10.1) Total Bilirubin 0.3 mg/dL (0.2-1.0) Aspartate Amino Transf (AST/SGOT) 16 U/L (15-37) Alanine Aminotransferase (ALT/SGPT) 13 U/L (14-59) Alkaline Phosphatase 86 U/L (46-116) Total Protein 7.5 g/dL (6.4-8.2) Albumin 2.6 g/dL (3.4-5.0) Albumin/Globulin Ratio 0.5 (1.0-1.7) Brief Hospital Course Ms. Cates is a 77 old female who came from home, daughter is involved with her care, stayed one week with us because abdominal pain with significant vascular abnormalities noted on abdominal CT/MRI/MRA. She takes cannabinoids because she claims that helps with her chronic abdominal pain. As per GI discussion with the service-she has had worked up from A thru Z for chronic abdominal pain. Imaging shows some celiac trunk stenosis. [facility] surgery involved. Might need some intervention by IR are some of the thoughts - but they doubt that these abnormalities were causing her symptoms. In any case she has had EGD and further numerous workups as outpatient or in other facilities. Comanagement with GI here in her stay. Some medications we did try included dicyclomine, scheduled 10 mg 3 times a day along with some other pain medicines. She has been getting 4 mg IV morphine every 2 when necessary with relief and no adverse effects. I needed to start some MS Contin 15 twice a day and she is tolerating that fine. I understand concerns of the daughter about narcotics. But she has been getting so much more the hospital and was tolerating them fine with needing some prn as add ons to help with her pain. Did Rx only some 30 pills of MS Contin and 30 pills of hydrocodone's. I did Rx dicyclomine started by GI on the with Carafate, PPI and other some meds. Blood pressure is holding. She already has a follow-up set up for vascular surgery Dr. Arreguin. Discussed with vascular surgery nurse mid-level provider and RN at bedside. Patient seen and examined, discharge time 30 minutes cumulative greater than 60% DC education counseling and Rx Ing numerous meds. Rx on chart consults: vasc sx, GI Proc Multiple abd imaging Discharge Information Condition at Discharge: Improved, Stable Disposition/Orders: D/C to Home w/ HH Scheduled Amlodipine Besylate (Amlodipine Besylate) 5 Mg Tablet, 5 MG PO DAILY, (Reported) Entered as Reported by: FAUZIA CANCHOLA on 05/07/181844 Last Action: New Order on 05/07/181844 by FAUZIA CANCHOLA Amlodipine Besylate (Amlodipine Besylate) 2.5 Mg Tablet, 2.5 MG PO DAILY for 30 Days, #30 Prescribed by: ELEAZAR DEWEY on 05/14/18 1102 Aspirin (Aspirin Ec) 81 Mg Tablet., 81 MG PO DAILYWBKFT for 30 Days, #30 Prescribed by: ELEAZAR DEWEY on 05/14/18 1102 Atorvastatin Calcium (Atorvastatin Calcium) 10 Mg Tablet, 10 MG PO QHS for 30 Days, #30 Prescribed by: ELEAZAR DEWEY on 05/14/18 1102 Dicyclomine Hcl (Dicyclomine Hcl) 10 Mg Capsule, 10 MG PO TID for 14 Days, #42 Prescribed by: ELEAZAR DEWEY on 05/14/18 1102 Famotidine (Pepcid) 20 Mg Tablet, 20 MG PO BID, #30 Prescribed by: RALPH LOCK D.O. on 04/03/182227 Last Action: Continued on 05/07/181842 by FAUZIA CANCHOLA Furosemide (Lasix) 20 Mg Tablet, 1 TAB PO DAILY, #90 Ref 1 (Reported) Entered as Reported by: FAUZIA CANCHOLA on 05/07/181843 Last Action: Continued on 05/07/181845 by FAUZIA CANCHOLA Lactobacillus Rhamnosus Gg (Culturelle) 1 Each Cap.sprink, 1 CAP PO BID for 7 Days, #14 Prescribed by: ELEAZAR DEWEY on 05/14/18 1102 Levofloxacin (Levofloxacin) 250 Mg Tablet, 250 MG PO QHS for 5 Days, #5 Prescribed by: ELEAZAR DEWEY on 05/14/18 1102 Lubiprostone (Amitiza) 8 Mcg Capsule, 1 CAP PO BID, #60 Ref 5 (Reported) Entered as Reported by: FAUZIA CANCHOLA on 05/07/181842 Last Action: Continued on 05/11/18 1301 by FAUZIA CANCHOLA Metoprolol Succinate (Toprol Xl) 50 Mg Tab.er.24h, 1 TAB PO DAILY, (Reported) Entered as Reported by: MARION LAWS on 07/18/16 2330 Morphine Sulfate (Morphine Sulfate Er) 15 Mg Tablet.er, 15 MG PO BID, #30 Prescribed by: ELEAZAR DEWEY on 05/14/18 1102 Olopatadine Hcl (Patanol) 5 Ml Drops, 1 DROP EACHEYE BID, #5 Ref 1 (Reported) Entered as Reported by: FAUZIA CANCHOLA on 05/07/181843 Last Action: Converted on 05/07/181845 by FAUZIA CANCHOLA Pantoprazole Sodium (Protonix) 20 Mg Tablet.dr, 2 TAB PO DAILY, #30 (Reported) Entered as Reported by: FAUZIA CANCHOLA on 05/07/181844 Last Action: Converted on 05/07/181845 by FAUZIA CANCHOLA Potassium Chloride (Klor-Con 10) 10 Meq Tablet.er, 1 TAB PO DAILY, #30 Ref 5 ( Reported) Entered as Reported by: FAUZIA CANCHOLA on 05/07/181843 Last Action: Continued on 05/07/181845 by FAUZIA CANCHOLA [Pantoprazole] 40 MG TABLET.DR, 40 MG PO DAILYAC, #30 Prescribed by: ELEAZAR DEWEY on 05/14/18 1102 Scheduled PRN Albuterol Sulfate (Albuterol Sulfate Neb Soln) 2.5 Mg/3 Ml Vial.neb, 2.5 MG NEB PRN Q4HRS PRN for SHORTNESS OF BREATH for 14 Days Prescribed by: ELEAZAR DEWEY on 05/14/181101 Hyoscyamine Sulfate (Levsin-Sl) 0.125 Mg Tab.subl, 1-2 TAB SL PRN Q4HRS PRN for PAIN, #20 Ref 0 Prescribed by: RALPH LOCK D.O. on 04/03/182227 Oxycodone Hcl/Acetaminophen (Oxycodone-Acetaminophen 10-325) 1 Each Tablet, 1 TAB PO PRN Q4HRS PRN for MODERATE-SEVERE pain, #30 Prescribed by: ELEAZAR DEWEY on 05/14/181101 Sucralfate (Carafate) 1 Gm Tablet, 1 GM PO PRN BFRMEALHC PRN for STOMACH PAIN, # 60 Prescribed by: ELEAZAR DEWEY on 05/14/182 ELEAZAR DEWEY MD May 14, 2018 11:07
[2018-05-14 11:16] VITALS: BP 133/63
[2018-05-14] MEDS: SIMETHICONE 80 MG TAB.CHEW PO PRN (13:22)
--- NOTE | 2018-05-14 14:48 | PDOC ---
Subjective: Subjective: Has abd pain - biggest complaint is sore neck. Objective: Vital Signs: Vital Signs Date Time Temp Pulse Resp B/P (MAP) Pulse Ox O2 Delivery O2 Flow Rate FiO2 05/14/18 11:16 97.3 81 18 133/63 (86) 96 Room Air 97.3 PE: GEN: NAD, up to ariel LUNGS: CTAB HEART: RRR ABD: soft NEURO/PSYCH: A & O 3 A/P: Chronic abd pain - suspect IBS Constipation - stooling w/ multiple meds -- Continue dicyclomine and treatment for constipation. DC per primary. VIVIAN MOREL May 14, 2018 14:48
[2018-05-14 15:45] VITALS: BP 124/60
--- NOTE | 2018-05-14 16:09 | RAD ---
CT of the neck without contrast, 05/14/2018: HISTORY: Right neck swelling Noncontrast scans were obtained due to a reported iodine allergy. This limits evaluation of the neck structures. The thyroid gland is enlarged and heterogeneous. It contains multiple coarse calcifications. The left lobe of the gland is larger than the right. There is mild substernal extension distal left of midline. There is slight mass effect upon the left side of the trachea. The laryngeal region is unremarkable. There is mild streaky subcutaneous edema in the submandibular region, more so on the right. No discrete fluid collection or mass is seen. The submandibular and parotid glands demonstrate no intrinsic abnormality. Small cervical lymph nodes are seen without definite pathologic enlargement. The patient is edentulous. The visualized paranasal sinuses are clear. There is moderate calcific plaquing at both carotid bifurcations and at the aortic arch. Emphysematous changes are noted in the upper lobes. Pleural-parenchymal opacities in the right apex probably represent scars. Moderate multilevel hypertrophic degenerative change is present in the cervical spine. IMPRESSION: 1. Multinodular goiter with mild substernal extension. 2. Mild nonspecific subcutaneous edema in the submandibular region, right greater than left. PQRS Compliance Statement: One or more of the following individualized dose reduction techniques were utilized for this examination: 1. Automated exposure control 2. Adjustment of the mA and/or kV according to patient size 3. Use of iterative reconstruction technique Electronically signed by: Amor Stanley MD (05/14/2018 4:06 PM) [facility]
--- NOTE | 2018-05-15 08:45 | DISCH ---
DISCHARGE WITH HOME HEALTH DISCHARGE INFORMATION: Condition on Discharge: Stable CODE STATUS: Code Status: Full HOME HEALTH: Face to Face: I certify this patient is under my care and that I, or a nurse practitioner or physician's carpenter's assistant working with me, had a face to face encounter that meets the physician face to face encounter requirements with this patient on []. Medical Complications: Falls, HTN Physical Therapy For: Evalulation/Treatment Occupational Therapy For: Evaluation/Treatment Speech Language Pathology For: Evaluation/Treatment Home Health Aide For: Self-care Pt Meets Homebound Status: Unsteady balance w/ amb,, Extreme weakness w/ amb. POST DISCHARGE ORDERS: Activity Instructions for Disc: Activity as tolerated Weight Bearing Status after Di: As tolerated DIET AFTER DISCHARGE: Regular Wound/Incision Care: Ice to area for comfort CHECKS AFTER DISCHARGE: Checks after discharge: Check blood press - daily FOLLOW-UP: Follow Up With: Primary Care Provider TREATMENT/EQUIPMENT ORDERS: Adaptive Equipment Issued: None CERTIFICATION STATEMENT: Certification Statement: Certification Statement: Based on the above finding, I certify that this patient is confined to the home and needs intermittent longterm care, physical therapy and/or speech therapy, or continues to need occupational therapy.~ This patient is under my care, and I have initiated the establishment of the plan of care.~ This patient will be followed by myself or a community physician who will periodically review the plan of care. Home Meds Active Scripts Lactobacillus Rhamnosus Gg (CULTURELLE) 1 Each Cap.sprink, 1 CAP PO BID for 7 Days, #14 CAP Prov:ELEAZAR DEWEY MD 05/14/18 [Pantoprazole] 40 [address]T.DR Alvarez Conflict Check, 40 MG PO DAILYAC, #30 Prov:ELEAZAR DEWEY MD 05/14/18 Sucralfate (CARAFATE) 1 Gm Tablet, 1 GM PO PRN BFRMEALHC PRN for STOMACH PAIN, # 60 TAB Prov:ELEAZAR DEWEY MD 05/14/18 Morphine Sulfate (MORPHINE SULFATE ER) 15 Mg Tablet.er, 15 MG PO BID, #30 TAB.SR Prov:ELEAZAR DEWEY MD 05/14/18 Oxycodone Hcl/Acetaminophen (OXYCODONE-ACETAMINOPHEN 10-325) 1 Each Tablet, 1 TAB PO PRN Q4HRS PRN for MODERATE-SEVERE pain, #30 TAB Prov:ELEAZAR DEWEY MD 05/14/18 Amlodipine Besylate (AMLODIPINE BESYLATE) 2.5 Mg Tablet, 2.5 MG PO DAILY for 30 Days, #30 TAB Prov:ELEAZAR DEWEY MD 05/14/18 Aspirin (ASPIRIN EC) 81 Mg Tablet.dr, 81 MG PO DAILYWBKFT for 30 Days, #30 TAB.SR Prov:ELEAZAR DEWEY MD 05/14/18 Atorvastatin Calcium (ATORVASTATIN CALCIUM) 10 Mg Tablet, 10 MG PO QHS for 30 Days, #30 TAB Prov:ELEAZAR DEWEY MD 05/14/18 Albuterol Sulfate (ALBUTEROL SULFATE NEB SOLN) 2.5 Mg/3 Ml Vial.neb, 2.5 MG NEB PRN Q4HRS PRN for SHORTNESS OF BREATH for 14 Days, EACH Prov:ELEAZAR DEWEY MD 05/14/18 Dicyclomine Hcl (DICYCLOMINE HCL) 10 Mg Capsule, 10 MG PO TID for 14 Days, #42 CAP Prov:ELEAZAR DEWEY MD 05/14/18 Levofloxacin (LEVOFLOXACIN) 250 Mg Tablet, 250 MG PO QHS for 5 Days, #5 TAB Prov:ELEAZAR DEWEY MD 05/14/18 Famotidine (PEPCID) 20 Mg Tablet, 20 MG PO BID, #30 TAB Prov:RALPH LOCK DO 04/03/18 Reported Medications Amlodipine Besylate (AMLODIPINE BESYLATE) 5 Mg Tablet, 5 MG PO DAILY, TAB 05/07/18 Olopatadine Hcl (PATANOL) 5 Ml Drops, 1 DROP EACHEYE BID, #5 ML 1 Refill 05/07/18 Furosemide (LASIX) 20 Mg Tablet, 1 TAB PO DAILY, #90 TAB 1 Refill 05/07/18 Potassium Chloride (KLOR-CON 10) 10 Meq Tablet.er, 1 TAB PO DAILY, #30 TAB 5 Refills 05/07/18 Lubiprostone (AMITIZA) 8 Mcg Capsule, 1 CAP PO BID, #60 CAP 5 Refills 05/07/18 Metoprolol Succinate (TOPROL XL) 50 Mg Tab.er.24h, 1 TAB PO DAILY, TAB 07/18/16 Discontinued Reported Medications Pantoprazole Sodium (PROTONIX) 20 Mg Tablet.dr, 2 TAB PO DAILY, #30 TAB 05/07/18 Discontinued Scripts Hyoscyamine Sulfate (LEVSIN-SL) 0.125 Mg Tab.subl, 1-2 TAB SL PRN Q4HRS PRN for PAIN, #20 TAB 0 Refills Prov:RALPH LOCK DO 04/03/18 ELEAZAR DEWEY MD May 15, 2018 08:45
== END 2018-05-14 17:21 | disposition home health service (06) | DRG 64 ==
LOC: 4 NORTH 15:05 → 6 SOUTH 05-12 19:41
PROVIDERS: ADMIT Internal Medicine; ATTEND Internal Medicine
DX: I63.9 Cerebral infarction, unspecified (principal); G93.41 Metabolic encephalopathy; N39.0 Urinary tract infection, site not specified; I77.4 Celiac artery compression syndrome; G40.909 Epilepsy, unspecified, not intractable, without status epilepticus; G89.29 Other chronic pain; K21.0 Gastro-esophageal reflux disease with esophagitis; F17.210 Nicotine dependence, cigarettes, uncomplicated; F12.90 Cannabis use, unspecified, uncomplicated; G93.89 Other specified disorders of brain; G31.9 Degenerative disease of nervous system, unspecified; I70.8 Atherosclerosis of other arteries; J44.9 Chronic obstructive pulmonary disease, unspecified; K59.00 Constipation, unspecified; F41.9 Anxiety disorder, unspecified; K57.30 Diverticulosis of large intestine without perforation or abscess without bleeding; I50.9 Heart failure, unspecified; I11.0 Hypertensive heart disease with heart failure; I35.1 Nonrheumatic aortic (valve) insufficiency; K31.84 Gastroparesis; K29.70 Gastritis, unspecified, without bleeding; I77.1 Stricture of artery; Z79.899 Other long term (current) drug therapy; Z88.0 Allergy status to penicillin; Z79.82 Long term (current) use of aspirin; Z88.8 Allergy status to other drugs, medicaments and biological substances; Z90.710 Acquired absence of both cervix and uterus; Z90.49 Acquired absence of other specified parts of digestive tract; Z71.9 Counseling, unspecified; Z82.0 Family history of epilepsy and other diseases of the nervous system
CPT/HCPCS: 36415; 70490; 70553; 71045; 74174; 74185; 76705; 76770; 80053; 80061; 80307; 81001; 82607; 84443; 85007; 85025; 87086; 87205; 87324; 90471; 90756; 93880; 94640; 94760; 95816; A9585; C8929; J1956; J2270; J7512; J7620; Q0163; Q9967; 92610; 97110; 97116; 97530; 97535; G0479; Q2035